=== PATIENT | female | born 1935 | race Caucasian/White ===

== ENCOUNTER 2018-05-18 21:36 | Emergency (ER) | payer OTHER ==
[2018-05-18 21:42] VITALS: BMI 23.3
--- NOTE | 2018-05-18 21:52 | PDOC ---
Attending Attestation - Resident Resident Name: Tapan Maki - ED Attending Attestation I have performed the following: I have examined & evaluated the patient, The case was reviewed & discussed with the resident, I agree w/resident's findings & plan
--- NOTE | 2018-05-18 22:26 | PDOC ---
Attending Attestation - HPI HPI: 05/18/18 23:14 The patient is an 83-year-old female with past medical history significant for COPD, depression, dementia, HTN, HLD presents to the emergency department from [facility] via EMS for head evaluation. Per [facility] RN Sekou, the patient has a nodule on the back of her head. Patients PCP sent the patient to the ER for a CT of the back of the head. 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 At the ED, the patient isnt answering any questions. Allergies: NKA Surgical history: Cholecystectomy and abdominal surgery. PCP: Dr. Marjorie burgos. - Physicial Exam PE: 05/18/18 23:14 GENERAL: In no acute distress. Spoke to the patient in bolivian with a plug sorter. HEAD: No signs of trauma, no bumps or lesion on the scalp. EYES: PERRLA, EOMI, sclera anicteric, conjunctiva clear ENT: moist mucosas, patient wouldnt let us look at her pharynx. NECK: Normal ROM, supple, no lymphadenopathy, JVD, or masses LUNGS: Breath sounds equal, clear to auscultation bilaterally. No wheezes, and no crackles HEART: Regular rate and rhythm, normal S1 and S2, no murmurs, rubs or gallops ABDOMEN: Soft, nontender. No guarding, no rebound. No masses EXTREMITIES: no pitting edema, moving all extremities, no clubbing or cyanosis. No cords, erythema, or tenderness NEUROLOGICAL: patient is somnolent, opens eyes to name. SKIN: Warm, Dry, normal turgor, no rashes or lesions noted. - Medical Decision Making 05/18/18 23:20 Documentation prepared by Lizette Grewal, acting as biomedical photographer for Merari Olsen MD. 05/18/18 23:39 Call placed to [facility]. Case discussed with AGUSTO Sapp at 10:55 pm. <Lizette Grewal - Last Filed: 05/18/18 23:39> - Resident Resident Name: Luh Burnham - ED Attending Attestation I have performed the following: I have examined & evaluated the patient, The case was reviewed & discussed with the resident, I agree w/resident's findings & plan - Medical Decision Making 05/18/18 22:37 Pt with dementia and depression, sent from [place] to check out why she is somnolent. We will do a full assessment and a head CT. 05/18/18 23:51 Pt has a hematoma on the right posterior scalp. She has no subdural visualized and no counter coup lesion. 05/20/18 04:05 Back to the [place] <Merari Olsen - Last Filed: 05/20/18 04:05>
[2018-05-18] MEDS ORDERED: SODIUM CHLORIDE 0.9% 1000 ML INFUS.BAG IV ONE (22:30)
--- NOTE | 2018-05-18 22:57 | PDOC ---
History of Present Illness - General Chief Complaint: Head/Neck problem Stated Complaint: INJURY Time Seen by Provider: 05/18/18 21:51 History Source: Unavil. due to pt. cond. Exam Limitations: Dementia - History of Present Illness Initial Comments: 05/18/18 22:39 This is a 83 year old female with a past medical history of major depressive disorder, paranoid schizophrenia, dementia unspecified, HTN, COPD hypothyroid, constipation, repeat urinary tract infections, PNA who was BIBA sent from [facility] to get CT scan of the head due to a nodule on back of head. Patient very lethargic, barely responding to questioning. History not attainable a this time. Vital sings on admission wnl. Called placed to [facility], nurse stated that at baseline, patient has dementia but can respond minimally in Serbian, follows commands, walks with assistance. Patient does take ativan 0.5 mg in the morning and 1mg in the evening. Nurse stated that 20 minutes before arrival she was given 1mg of ativan. 05/18/18 23:11 Past History - Past Medical History Allergies/Adverse Reactions: Allergies Allergy/AdvReac Type Severity Reaction Status Date / Time No Known Drug Allergies Allergy Verified 05/18/18 21:42 Home Medications: Ambulatory Orders Levothyroxine [Synthroid -] 100 mcg PO DAILY 08/24/14 Sertraline HCl [Zoloft -] 25 mg PO BID 08/24/14 Tramadol HCl 50 mg PO Q6H PRN 02/02/15 Calcium Carbonate/Vitamin D3 [Calcium 500 mg-Vit D3 600 Unit] 1 each PO BID Chol/Aa10/Best/Mztc931/Prt/Lec [Theramine Plus Powder Packet] 27 mg PO DAILY Dextromethorphan HBr/Quinidine [Nuedexta 20-10 mg Capsule] 1 each PO BID Docusate Sodium [Colace] 100 mg PO HS 03/22/18 Fluticasone Prop 0.05% Nasal [Flonase -] 1 - 2 spray NS DAILY 03/22/18 Fosamprenavir Calcium 700 mg PO WEEKLY 03/22/18 Gabapentin [Neurontin] 100 mg PO BID 03/22/18 Lorazepam 0.5 mg PO BID PRN 03/22/18 Mag Hydrox/Al Hydrox/Simeth [Mylanta *Suspension*] 30 ml PO Q6H PRN 03/22/18 Melatonin 5 mg PO HS 03/22/18 Mirtazapine [Remeron -] 15 mg PO HS 03/22/18 Nystatin/Triamcinolone Top Cr [Mycolog II -] 1 applic TP BID 03/22/18 Sennosides [Senna] 8.6 mg PO HS 03/22/18 Sertraline HCl [Zoloft] 100 mg PO DAILY 03/22/18 Simvastatin [Zocor] 10 mg PO HS 03/22/18 Sodium Phosphate,[place]-Dibasic [Fleet Enema] 133 ml RC PRN PRN 03/22/18 COPD: No HTN: Yes Psychiatric Problems: Yes (ANXIETY, DEPRESSION) Seizures: Yes Thyroid Disease: Yes (HYPO.) - Surgical History Abdominal Surgery: Yes Cholecystectomy: Yes - Family Disease History Family Disease History: Heart Disease: Father - Suicide/Smoking/Psychosocial Hx Smoking History: Unknown if ever smoked Have you smoked in the past 12 months: No Hx Alcohol Use: No Drug/Substance Use Hx: No Substance Use Type: None Hx Substance Use Treatment: No Review of Systems - Review of Systems Able to Perform ROS?: No (patient lethargic) Is the patient limited Syriac proficient: No *Physical Exam - Vital Signs Last Vital Signs Temp Pulse Resp BP Pulse Ox 98.4 F 84 18 133/75 98 05/18/18 21:41 05/18/18 21:41 05/18/18 21:41 05/18/18 21:41 05/18/18 21:41 - Physical Exam Comments: 05/18/18 22:59 GENERAL: lethargic; not responding to questions; barely opening eyes HEAD: No signs of trauma, normocephalic, atraumatic EYES: PERRLA, EOMI, sclera anicteric, conjunctiva clear ENT: Auricles normal inspection, hearing grossly normal, nares patent, oropharynx clear without exudates. dry mucosa NECK: no JVD, or masses LUNGS: decreased breath sounds ; scattered rhonchi HEART: Regular rate and rhythm, normal S1 and S2, no murmurs, rubs or gallops, peripheral pulses normal and equal bilaterally. ABDOMEN: Soft, nontender, normoactive bowel sounds. No guarding, no rebound. No masses EXTREMITIES : Normal inspection, no edema. No clubbing or cyanosis. NEUROLOGICAL: lethargic; not responding to questioning; dementia at baseline SKIN: Warm, Dry, normal turgor, no rashes or lesions noted ED Treatment Course - LABORATORY CBC & Chemistry Diagram: 05/19/18 01:00 05/19/18 01:00 - RADIOLOGY Radiology Studies Ordered: Category Date Time Status HEAD CT WITHOUT CONTRAST [CT] Stat CT Scan 05/18/18 22:36 Ordered CHEST X-RAY PORTABLE* [RAD] Stat Radiology 05/18/18 22:30 Ordered Medical Decision Making - Medical Decision Making 05/18/18 23:02 This is a 83 year old female with a history of dementia, schizophrenia, anxiety , major depressive disorder, COPD, PNA, repeat urinary tract infections who was sent over by [facility] for a head CT due to a newly recognized nodule on scalp (not identified on my exam). Here in the ER, patient lethargic, barely arousable. #AMS; differential includes, but not limited to sepsis (hx repeated UTI), medication induced encephalopathy, metabolic encephalopathy, stroke, other acute intracranial pathology -cbc, cmp, cxr, ua/uc, bld cx, vbg -ekg -head ct -hold sedative medications to assess mental status 05/18/18 23:45 -Head CT: Impression: No CT evidence of acute intracranial pathology. A small left parietal/occipital scalp hematoma is noted. The intracranial structures demonstrate no definite interval change in comparison to a prior CT exam of 03/22. 05/19/18 01:51 -cbc,, ua were negative for acute process, vitals are stable. BUN slightly elevated; will give 500NS bolus -lethargy most likely due to ativan given. More arousable . Disposition: will dc back to care home *DC/Admit/Observation/Transfer Diagnosis at time of Disposition: Lethargy - Discharge Dispostion Disposition: [facility] - Referrals Referrals: Silverio Hsu MD [Primary Care Provider] - - Patient Instructions - Post Discharge Activity
[2018-05-19 01:17] LABS: VENOUS PC02 49.7 mmHg (38-52); VENOUS PH 7.36 (7.32-7.42); VENOUS PO2 35.9 mmHg (28-48)
[2018-05-19 01:37] LABS: BASO % 0.4 % (0-2.0); EOS % 1.9 % (0-4.5); HEMATOCRIT 34.9 % (32.4-45.2); HEMOGLOBIN 11.6 GM/dL (10.7-15.3); LYMPH % 19.6 % (8-40); MCH 31.3 pg (25.7-33.7); MCHC 33.2 g/dl (32.0-36.0); MEAN CELL VOLUME 94.3 fl (80-96); MEAN PLT VOLUME 7.2 fl (7.5-11.1); MONO % 6.5 % (3.8-10.2); NEUT % 71.6 % (42.8-82.8); PLATELET COUNT 314 K/MM3 (134-434); RBC 3.71 M/mm3 (3.60-5.2); RDW 14.2 % (11.6-15.6)
[2018-05-19 01:39] LABS: URINE APPEARANCE CLEAR; URINE BILIRUBIN NEGATIVE (<2.0 mg/dL); URINE COLOR YELLOW; URINE GLUCOSE (UA) NEGATIVE (NEGATIVE); URINE KETONE NEGATIVE (NEGATIVE); URINE LEUK ESTERASE NEGATIVE (NEGATIVE); URINE NITRITE NEGATIVE (NEGATIVE); URINE PROTEIN NEGATIVE (NEGATIVE); URINE UROBILINOGEN NEGATIVE mg/dL (0.2-1.0)
[2018-05-19 01:57] LABS: INR 1.14 (0.83-1.09); PROTHROMBIN TIME (PATIENT) 13.5 SEC (9.7-13.0)
[2018-05-19 02:00] LABS: ACTIVATED PTT 29.6 SECONDS (25.2-36.5)
[2018-05-19 02:01] LABS: ALK PHOS 105 U/L (45-117); ANION GAP 6 MMOL/L (8-16); BILIRUBIN,TOTAL 0.2 mg/dL (0.2-1); BLOOD UREA NITROGEN 28 mg/dL (7-18); CALCIUM 9.2 mg/dL (8.5-10.1); CHLORIDE 109 mmol/L (98-107); CO2 29 mmol/L (21-32); CREATININE 0.8 mg/dL (0.55-1.3); GLUCOSE,RANDOM 124 mg/dL (74-106); POTASSIUM 4.2 mmol/L (3.5-5.1); SGOT/AST 22 U/L (15-37); SGPT/ALT 25 U/L (13-61); SODIUM 144 mmol/L (136-145); TOT PROT 6.8 g/dl (6.4-8.2)
[2018-05-19 02:08] LABS: MAGNESIUM 2.3 mg/dL (1.8-2.4); PHOSPHOROUS 3.3 mg/dL (2.5-4.9)
[2018-05-19] MEDS ORDERED: SODIUM CHLORIDE 500 ML IV STA (02:08)
[2018-05-19 03:42] VITALS: BP 140/80; PULSE 92; TEMP 98
== END 2018-05-19 03:26 ==
LOC: JER 21:36
PROC: 3E0337Z Introduction of Electrolytic and Water Balance Substance into Peripheral Vein, Percutaneous Approach (ICD-10-PCS; principal; 2018-05-18)
DX: R53.83 Other fatigue (principal); F33.9 Major depressive disorder, recurrent, unspecified; F20.0 Paranoid schizophrenia; F03.90 Unspecified dementia, unspecified severity, without behavioral disturbance, psychotic disturbance, mood disturbance, and anxiety; I10 Essential (primary) hypertension; J44.9 Chronic obstructive pulmonary disease, unspecified; E03.9 Hypothyroidism, unspecified; Z87.440 Personal history of urinary (tract) infections; S00.03XA Contusion of scalp, initial encounter; X58.XXXA Exposure to other specified factors, initial encounter; Y93.89 Activity, other specified; Y92.128 Other place in nursing home as the place of occurrence of the external cause; Y99.8 Other external cause status
CPT/HCPCS: 36415; 70450-TC; 71045-TC-FY; 80053; 81003; 82803; 83605; 83735; 84100; 84443; 85025; 85610; 85730; 87040; 87086; 96360; 99285-25; J7030

== ENCOUNTER 2018-07-10 20:01 | Inpatient (IN) | payer OTHER ==
[2018-07-10] MEDS ORDERED: SODIUM CHLORIDE 1,000 ML IV SCH (20:15)
--- NOTE | 2018-07-10 20:17 | PDOC ---
Attending Attestation - Medical Decision Making EXAM#: TYPE/EXAM: RESULT: [id number] CT/HEAD CT (STROKE) Rule out stroke CT scan of the brain without intravenous contrast Compared to prior CT scan of the head dated 05/18/2018. There is moderate volume loss and ventricular dilatation. Mild periventricular chronic microvascular ischemic disease changes are present. No mass lesion, gross acute infarct or intracranial hemorrhage are identified. There is no shift of the midline structures. Mild to moderate deviation of the nasal septum to the right. Minimal mucosal thickening in the right ethmoid air cells, posteriorly. Calcification of the cavernous carotid arteries are present. The mastoid air cells are well aerated and the calvarium is intact Impression: No significant interval change or gross acute intracranial pathology is identified. Correlate clinically to determine further evaluation and follow-up Reported By: Kandy Aj MD 07/10/182026 <Emma Cavazos - Last Filed: 07/10/18 20:45> - Resident Resident Name: Candido Mccormack - ED Attending Attestation I have performed the following: I have examined & evaluated the patient, The case was reviewed & discussed with the resident, I agree w/resident's findings & plan, Exceptions are as noted - HPI HPI: 07/10/18 21:47 This is a 83 year old female with a past medical history of major depressive disorder, paranoid schizophrenia, dementia unspecified, HTN, COPD hypothyroid, constipation, recurrent urinary tract infections, PNA, from [facility] who presents to the emergency department with altered mental status at [facility] 1 hour prior to arrival. Per EMS, staff at [place] noted a possible change to her speech? Code ferguson activated. On clarification, [place] staff states pt was a bit more slow to respond after dinner, not answering questions as sharply as she usually does. NIHSS on initial exam 1 for not knowing month, although pt has dementia and per [place] at baseline does not know the month. History is limited due to pt's clinical status. Denies any symptoms at the time. Allergies: NKDA PCP - Dr. Hsu/Dr. Ortiz - Physicial Exam PE: 07/10/18 21:52 agree w resident exam - Medical Decision Making 07/10/18 21:55 83yo F with MMP presents to the ED with altered mental status. Per [place] staff, pt lethargic. Initially code ferguson activated due to EMS report of speech changes, but on clarification with [facility] staff, speech was the same, but pt more lethargic, not as sharp as usual. Possible infection vs metabolic vs neurologic vs ischemic etiology. Plan for labs, UA, XR, CTH, anticipate admission. <Anel Holland - Last Filed: 07/10/18 22:04> Heart Score/ECG Review #1 07/10/18 22:02 Twelve-lead EKG was performed and reviewed by me. Sinus tachycardia, rate 112. Normal axis. Wavy baseline but no obvious ST elevations. <Anel Holland - Last Filed: 07/10/18 22:04>
--- NOTE | 2018-07-10 20:26 | PDOC ---
History of Present Illness - General Chief Complaint: CVA/TIA Stated Complaint: HEADACHE Time Seen by Provider: 07/10/18 20:06 - History of Present Illness Initial Comments: 07/10/18 20:54 The patient is an 83 year old female with a history of HTN, HLD, Dementia, Recurrent UTIs, Seizures, Thyroid disfunction who presents for evaluation of altered mental status. Per the patient's half-way, the patient was noted to be more lethargic with her head looking to the left and more altered at around 7:25 pm prompting her presentation to the ED for further evaluation. They noted that the patient has been gradually declining over the past few weeks although is normally interactive and follows commands. The patient herself was complaining of a headache, however further ROS is limited due to her dementia. tPA Exclusion Checklist 0-3hr - Time Elapsed Date last known well: 07/10/18 Time last known well: 17:00 Elaspsed time: Day(s) and 13 Hour(s) and 33 Minutes - Thrombolytic Therapy Candidate Is the patient eligible for Thrombolytic Therapy?: No - Relative Exclusion Criteria 0-3h Rapid improvement: Yes Stroke severity too mild: Yes - Ineligibility reason(s) Reasons No tPA given: See reason(s) noted above NIH Stroke Scale - Last Known Well Date/Time & Onset Date Last Known Well: 07/10/18 Time Last Known Well: 17:00 - Initial Evaluation Level of consciousness: Alert Ask patient the month and their age: Answers one correctly Ask patient to open & close eyes; make fist and let go: Obeys both correctly Best gaze (horizontal eye movement): Normal Visual field testing: No visual field loss Facial paresis (Show teeth/raise eyebrows/close eyes tight): Normal symmetrical movement Motor Function: Left Arm: Normal Motor Function: Right Arm: Normal (extends arm 90 (or 45) degrees for 10 seconds without drift Motor Function: Left Leg: Normal (extends leg 30 degrees for 5 seconds without drift) Motor Function: Right Leg: Normal (extends leg 30 degrees for 5 seconds without drift) Limb Ataxia: No ataxia Sensory(Use pinprick test arms,legs,trunk,face/side to side): Normal Best language (Describe picture, name items, read sentences): No Aphasia Dysarthria (read several words): Normal articulation Extinction and Inattention: No abnormality - Total Score NIH Stroke Scale Score: 1 Past History - Past Medical History Allergies/Adverse Reactions: Allergies Allergy/AdvReac Type Severity Reaction Status Date / Time No Known Drug Allergies Allergy Verified 07/10/18 20:27 Home Medications: Ambulatory Orders Levothyroxine [Synthroid -] 100 mcg PO DAILY 08/24/14 Sertraline HCl [Zoloft -] 25 mg PO BID 08/24/14 Tramadol HCl 50 mg PO Q6H PRN 02/02/15 Calcium Carbonate/Vitamin D3 [Calcium 500 mg-Vit D3 600 Unit] 1 each PO BID Chol/Aa10/Best/Coht506/Prt/Lec [Theramine Plus Powder Packet] 27 mg PO DAILY Dextromethorphan HBr/Quinidine [Nuedexta 20-10 mg Capsule] 1 each PO BID Docusate Sodium [Colace] 100 mg PO HS 03/22/18 Fluticasone Prop 0.05% Nasal [Flonase -] 1 - 2 spray NS DAILY 03/22/18 Fosamprenavir Calcium 700 mg PO WEEKLY 03/22/18 Gabapentin [Neurontin] 100 mg PO BID 03/22/18 Lorazepam 0.5 mg PO BID PRN 03/22/18 Mag Hydrox/Al Hydrox/Simeth [Mylanta *Suspension*] 30 ml PO Q6H PRN 03/22/18 Melatonin 5 mg PO HS 03/22/18 Mirtazapine [Remeron -] 15 mg PO HS 03/22/18 Nystatin/Triamcinolone Top Cr [Mycolog II -] 1 applic TP BID 03/22/18 Sennosides [Senna] 8.6 mg PO HS 03/22/18 Sertraline HCl [Zoloft] 100 mg PO DAILY 03/22/18 Simvastatin [Zocor] 10 mg PO HS 03/22/18 Sodium Phosphate,[place]-Dibasic [Fleet Enema] 133 ml RC PRN PRN 03/22/18 COPD: No HTN: Yes Psychiatric Problems: Yes (ANXIETY, DEPRESSION) Seizures: Yes Thyroid Disease: Yes (HYPO.) - Surgical History Abdominal Surgery: Yes Cholecystectomy: Yes - Family Disease History Family Disease History: Heart Disease: Father - Suicide/Smoking/Psychosocial Hx Smoking History: Unknown if ever smoked Have you smoked in the past 12 months: No Hx Alcohol Use: No Drug/Substance Use Hx: No Substance Use Type: None Hx Substance Use Treatment: No Review of Systems - Review of Systems Able to Perform ROS?: No (Dementia) *Physical Exam - Physical Exam Comments: 07/10/18 20:56 General Appearance: Nourished. No Apparent Distress HEENT: EOMI, SHANDA. No Pharyngeal Erythema, Tonsillar Exudate, Tonsillar Erythema Neck: No Cervical Lymphadenopathy Respiratory/Chest: Lungs Clear, Normal Breath Sounds. No Crackles, Rales, Rhonchi, Wheezing Cardiovascular: Regular Rhythm, Regular Rate. No Murmur, Gallops, Rubs Gastrointestinal/Abdominal: Normal Bowel Sounds, Soft. No Guarding, Rebound, Tenderness Musculoskeletal: No CVA Tenderness Extremity: Normal Capillary Refill Integumentary: Normal Color, Dry, Warm Neurologic: education technician II-XII NML intact, Oriented x1, Alert, Normal Mood/Affect, Normal Response, Motor Strength 5/5. No Gaze deviation noted Heart Score/ECG Review #1 ECG reviewed & interpreted by me at: 20:59 General ECG Interpretation: Sinus Rhythm, Normal Intervals, No acute ischemic changes 07/10/18 20:59 Sinus Tachycardia HR 112 ED Treatment Course - LABORATORY CBC & Chemistry Diagram: 07/10/18 21:05 07/10/18 22:20 - RADIOLOGY Radiology Studies Ordered: Category Date Time Status HEAD CT (STROKE) [CT] Stat CT Scan 07/10/18 20:05 Taken CHEST X-RAY PORTABLE* [RAD] Stat Radiology 07/10/18 20:05 Taken Medical Decision Making - Medical Decision Making 07/10/18 21:00 The patient is an 83 year old female with a history of HTN, HLD, Dementia, Recurrent UTIs, Seizures, Thyroid disfunction who presents for evaluation of altered mental status. Differential includes but is not limited to: CVA, TIA, Intracranial processes, UTI, Infectious, Metabolic Derangement. Given the patient's history and physical exam, we initially called the patient as a code smith. Head CT is unremarkable as read by our radiologist. We will obtain a cbc , cmp, troponin, ekg, lipid profile, ua, urine culture, chest plain film to evaluate further. We will continue to monitor and reassess while here in the ED. 07/11/18 00:33 CBC, cmp, troponin are unremarkable. UA demonstrates positive nitrites, positive leuk esterase, elevated wbc consistent with a UTI. We will treat the patient with ceftriaxone. It is likely the patient's symptoms are due to a UTI. We discussed the case with the admitting team who accepted the patient for admission. *DC/Admit/Observation/Transfer Diagnosis at time of Disposition: UTI (urinary tract infection) Qualifiers: Urinary tract infection type: site unspecified Hematuria presence: without hematuria Qualified Code(s): N39.0 - Urinary tract infection, site not specified Altered mental status Qualifiers: Altered mental status type: unspecified Qualified Code(s): R41.82 - Altered mental status, unspecified - Discharge Dispostion Condition at time of disposition: Stable Decision to Admit order: Yes - Referrals - Patient Instructions - Post Discharge Activity
[2018-07-10 21:22] LABS: BASO % 0.6 % (0-2.0); EOS % 1.5 % (0-4.5); HEMATOCRIT 39.6 % (32.4-45.2); HEMOGLOBIN 13.8 GM/dL (10.7-15.3); LYMPH % 13.1 % (8-40); MCH 32.4 pg (25.7-33.7); MCHC 34.8 g/dl (32.0-36.0); MEAN CELL VOLUME 93.1 fl (80-96); MEAN PLT VOLUME 7.4 fl (7.5-11.1); MONO % 8.9 % (3.8-10.2); NEUT % 75.9 % (42.8-82.8); PLATELET COUNT 217 K/MM3 (134-434); RBC 4.25 M/mm3 (3.60-5.2); RDW 14.9 % (11.6-15.6); WHITE BLOOD COUNT 6.7 K/mm3 (4.0-10.0)
[2018-07-10 21:50] LABS: URINE APPEARANCE SLCLOUDY; URINE BILIRUBIN NEGATIVE (<2.0 mg/dL); URINE COLOR YELLOW; URINE GLUCOSE (UA) 1+ (NEGATIVE); URINE KETONE NEGATIVE (NEGATIVE); URINE LEUK ESTERASE 3+ (NEGATIVE); URINE NITRITE POSITIVE (NEGATIVE); URINE PROTEIN NEGATIVE (NEGATIVE); URINE UROBILINOGEN NEGATIVE mg/dL (0.2-1.0)
[2018-07-10 22:13] LABS: EPI CELLS RARE /HPF (FEW); URINE BACTERIA MANY /hpf (NONE SEEN); URINE HYALINE CAST 4 /lpf; URINE MUCUS RARE
[2018-07-10] MEDS ORDERED: CEFTRIAXONE 1 GM in DEXTROSE 5%-WATER - 100 ML IVPB ONE (22:26)
[2018-07-10] MEDS ORDERED: CEFTRIAXONE 1 GM/50 ML BAG ONE (22:38)
[2018-07-10 22:54] LABS: INR 1.01 (0.83-1.09); PROTHROMBIN TIME (PATIENT) 11.9 SEC (9.7-13.0)
[2018-07-10 22:57] LABS: ACTIVATED PTT 29.2 SECONDS (25.2-36.5)
[2018-07-10 23:20] LABS: ALBUMIN 3.1 g/dl (3.4-5.0); ALK PHOS 127 U/L (45-117); ANION GAP 6 MMOL/L (8-16); BILIRUBIN,TOTAL 0.2 mg/dL (0.2-1); BLOOD UREA NITROGEN 22 mg/dL (7-18); CHLORIDE 109 mmol/L (98-107); CHOLESTEROL 166 mg/dL (50-200); CO2 26 mmol/L (21-32); CREATININE 0.8 mg/dL (0.55-1.3); GLUCOSE,RANDOM 149 mg/dL (74-106); HDL CHOLESTEROL 45 mg/dL (40-60); POTASSIUM 3.8 mmol/L (3.5-5.1); SGOT/AST 21 U/L (15-37); SGPT/ALT 20 U/L (13-61); SODIUM 141 mmol/L (136-145); TOT PROT 6.3 g/dl (6.4-8.2); TRIGLYCERIDES 189 mg/dL (0-150)
[2018-07-11] MEDS ORDERED: SODIUM PHOSPHATE/NA BIPHOS 133 ML ENEMA RC PRN (00:15)
[2018-07-11] MEDS ORDERED: FOSAMPRENAVIR CALCIUM 700 MG TABLET PO SCH (00:15)
--- NOTE | 2018-07-11 00:20 | HP ---
CHIEF COMPLAINT: altered mental status PCP: Shadi HISTORY OF PRESENT ILLNESS: 83 year old female with a history of HTN, HLD, Dementia, Recurrent UTIs, Seizures, Thyroid disfunction [facility] status. [facility] per [facility], patient appeared to be more lethargic, with gradual decline, not following commands recently. When I saw patient she was able to state her name and followed minimal commands. Was otherwise not very cooperative and provided no useful history. ER course was notable for: (1) head CT (2) IV fluid (3) Recent Travel: unknown PAST MEDICAL HISTORY: HTN, HLD, Dementia, Recurrent UTIs, Seizures, Thyroid disfunction PAST SURGICAL HISTORY: unknown Social History: unknown Smoking: Alcohol: Drugs: Family History: unknown Allergies No Known Drug Allergies Allergy (Verified 07/10/18 20:27) HOME MEDICATIONS: Home Medications Medication Instructions Recorded Levothyroxine [Synthroid -] 100 mcg PO DAILY 08/24/14 Sertraline HCl [Zoloft -] 25 mg PO BID 08/24/14 Tramadol HCl 50 mg PO Q6H PRN 02/02/15 Calcium Carbonate/Vitamin D3 1 each PO BID 03/22/18 [Calcium 500 mg-Vit D3 600 Unit] Chol/Aa10/Best/Radb373/Prt/Lec 27 mg PO DAILY 03/22/18 [Theramine Plus Powder Packet] Dextromethorphan HBr/Quinidine 1 each PO BID 03/22/18 [Nuedexta 20-10 mg Capsule] Docusate Sodium [Colace] 100 mg PO HS 03/22/18 Fluticasone Prop 0.05% Nasal 1 - 2 spray NS DAILY 03/22/18 [Flonase -] Fosamprenavir Calcium 700 mg PO WEEKLY 03/22/18 Gabapentin [Neurontin] 100 mg PO BID 03/22/18 Lorazepam 0.5 mg PO BID PRN 03/22/18 Mag Hydrox/Al Hydrox/Simeth 30 ml PO Q6H PRN 03/22/18 [Mylanta *Suspension*] Melatonin 5 mg PO HS 03/22/18 Mirtazapine [Remeron -] 15 mg PO HS 03/22/18 Nystatin/Triamcinolone Top Cr 1 applic TP BID 03/22/18 [Mycolog II -] Sennosides [Senna] 8.6 mg PO HS 03/22/18 Sertraline HCl [Zoloft] 100 mg PO DAILY 03/22/18 Simvastatin [Zocor] 10 mg PO HS 03/22/18 Sodium Phosphate,Tripp-Dibasic 133 ml RC PRN PRN 03/22/18 [Fleet Enema] REVIEW OF SYSTEMS - unable to obtain PHYSICAL EXAMINATION Vital Signs - 24 hr 07/10/18 20:02 Temperature 97.7 F Pulse Rate 111 H Respiratory 19 Rate Blood Pressure 121/66 O2 Sat by Pulse 96 Oximetry (%) GENERAL: Awake, alert, not cooperative HEAD: Normal with no signs of trauma. EYES: Pupils equal, round and reactive to light, extraocular movements intact, sclera anicteric, conjunctiva clear. No lid lag. EARS, NOSE, THROAT: Ears normal, nares patent, oropharynx clear without exudates. dry mucous membranes. NECK: Normal range of motion, supple without lymphadenopathy, JVD, or masses. LUNGS: Breath sounds equal, clear to auscultation bilaterally. No wheezes, and no crackles. No accessory muscle use. HEART: Regular rate and rhythm, normal S1 and S2 without murmur, rub or gallop. ABDOMEN: Soft, nontender, not distended, normoactive bowel sounds, no guarding, no rebound, no masses. No hepatomegaly or splenomegaly. MUSCULOSKELETAL: Normal range of motion at all joints. No bony deformities or tenderness. No CVA tenderness. UPPER EXTREMITIES: 2+ pulses, warm, well-perfused. No cyanosis. No clubbing. No peripheral edema. LOWER EXTREMITIES: 2+ pulses, warm, well-perfused. No calf tenderness. No peripheral edema. NEUROLOGICAL: no focal neuro deficits noted PSYCHIATRIC: Cooperative. Good eye contact. Appropriate mood and affect. SKIN: Warm, dry, normal turgor, no rashes or lesions noted, normal capillary refill. Laboratory Results - last 24 hr 07/10/18 07/10/18 07/10/18 21:05 21:05 21:05 WBC 6.7 RBC 4.25 Hgb 13.8 Hct 39.6 MCV 93.1 MCH 32.4 MCHC 34.8 RDW 14.9 Plt Count 217 D MPV 7.4 L Absolute Neuts (auto) 5.1 Neutrophils % 75.9 Lymphocytes % 13.1 D Monocytes % 8.9 Eosinophils % 1.5 Basophils % 0.6 Nucleated RBC % 0 PT with INR Cancelled INR Cancelled PTT (Actin FS) Sodium Cancelled Potassium Cancelled Chloride Cancelled Carbon Dioxide Cancelled Anion Gap Cancelled BUN Cancelled Creatinine Cancelled Creat Clearance w eGFR Cancelled Random Glucose Cancelled Calcium Cancelled Total Bilirubin Cancelled AST Cancelled ALT Cancelled Alkaline Phosphatase Cancelled Creatine Kinase Cancelled Troponin I Cancelled Total Protein Cancelled Albumin Cancelled Triglycerides Cancelled Cholesterol Cancelled Total LDL Cholesterol Cancelled HDL Cholesterol Cancelled Urine Color Urine Appearance Urine pH Ur Specific [place] Urine Protein Urine Glucose (UA) Urine Ketones Urine Blood Urine Nitrite Urine Bilirubin Urine Urobilinogen Ur Leukocyte Esterase Urine WBC (Auto) Urine RBC (Auto) Ur Epithelial Cells Urine Bacteria Hyaline Casts Urine Mucus Blood Type Antibody Screen 07/10/18 07/10/18 07/10/18 21:05 21:30 22:20 WBC RBC Hgb Hct MCV MCH MCHC RDW Plt Count MPV Absolute Neuts (auto) Neutrophils % Lymphocytes % Monocytes % Eosinophils % Basophils % Nucleated RBC % PT with INR 11.90 INR 1.01 PTT (Actin FS) 29.2 Sodium Potassium Chloride Carbon Dioxide Anion Gap BUN Creatinine Creat Clearance w eGFR Random Glucose Calcium Total Bilirubin AST ALT Alkaline Phosphatase Creatine Kinase Troponin I Total Protein Albumin Triglycerides Cholesterol Total LDL Cholesterol HDL Cholesterol Urine Color Yellow Urine Appearance Slcloudy Urine pH 5.0 Ur Specific [place] 1.024 Urine Protein Negative Urine Glucose (UA) 1+ H Urine Ketones Negative Urine Blood Negative Urine Nitrite Positive Urine Bilirubin Negative Urine Urobilinogen Negative Ur Leukocyte Esterase 3+ H Urine WBC (Auto) 52 Urine RBC (Auto) 4 Ur Epithelial Cells Rare Urine Bacteria Many Hyaline Casts 4 Urine Mucus Rare Blood Type Cancelled Antibody Screen Cancelled 07/10/18 22:20 WBC RBC Hgb Hct MCV MCH MCHC RDW Plt Count MPV Absolute Neuts (auto) Neutrophils % Lymphocytes % Monocytes % Eosinophils % Basophils % Nucleated RBC % PT with INR INR PTT (Actin FS) Sodium 141 Potassium 3.8 Chloride 109 H Carbon Dioxide 26 Anion Gap 6 L BUN 22 H Creatinine 0.8 Creat Clearance w eGFR > 60 Random Glucose 149 H Calcium 8.0 L Total Bilirubin 0.2 AST 21 ALT 20 Alkaline Phosphatase 127 H Creatine Kinase 46 Troponin I < 0.02 Total Protein 6.3 L Albumin 3.1 L Triglycerides 189 H Cholesterol 166 Total LDL Cholesterol 95 HDL Cholesterol 45 Urine Color Urine Appearance Urine pH Ur Specific [place] Urine Protein Urine Glucose (UA) Urine Ketones Urine Blood Urine Nitrite Urine Bilirubin Urine Urobilinogen Ur Leukocyte Esterase Urine WBC (Auto) Urine RBC (Auto) Ur Epithelial Cells Urine Bacteria Hyaline Casts Urine Mucus Blood Type Antibody Screen Head CT reviewed CXR reviewed ASSESSMENT/PLAN: #83yo woman with altered mental status. She has underlying dementia which may have progressed. This can also be delerium superimprosed on her dementia. Delerium may be exacerbated by her polypharmacy including multiple sedative medications. Will hold sedatives at this time. Possible UTI however poor urine specimen given presence of epithelial cells in UA. NO acute intracranial insults seen on head CT. R/o uncontrolled hypothyroidism. R/o uncontrolled seizure d/o. -observation -ceftriaxone -send new UA, urine culture -IV fluid hydration -avoid sedatives -fall precautions -bed rest -TSH -Vit B12 -RPR -consider neuro evaluation #Hypothyroidism -c/w levothyroxine 100 mcg po daily #Seizure d/o -c/w home dose Keppra #DVT ppx - heparin sc Visit type - Emergency Visit Emergency Visit: Yes ED Registration Date: 07/11/18 Care time: The patient presented to the Emergency Department on the above date and was hospitalized for further evaluation of their emergent condition. - New Patient This patient is new to me today: Yes Date on this admission: 07/11/18 - Critical Care Critical Care patient: No
[2018-07-11] MEDS: SODIUM CHLORIDE 1,000 ML IV SCH ×2 (01:02→06:19)
[2018-07-11 05:50] VITALS: BMI 28.7
[2018-07-11] MEDS: LEVOTHYROXINE NA 100 MCG TABLET (FP) PO SCH (06:08)
[2018-07-11 07:31] LABS: BASO % 0.7 % (0-2.0); HEMATOCRIT 36.4 % (32.4-45.2); HEMOGLOBIN 12.8 GM/dL (10.7-15.3); MCH 32.6 pg (25.7-33.7); MCHC 35.3 g/dl (32.0-36.0); MEAN CELL VOLUME 92.3 fl (80-96); MEAN PLT VOLUME 7.3 fl (7.5-11.1); MONO % 10.4 % (3.8-10.2); NEUT % 73.9 % (42.8-82.8); PLATELET COUNT 204 K/MM3 (134-434); RBC 3.95 M/mm3 (3.60-5.2); RDW 14.6 % (11.6-15.6); WHITE BLOOD COUNT 6.3 K/mm3 (4.0-10.0)
[2018-07-11 08:41] LABS: BLOOD UREA NITROGEN 15 mg/dL (7-18); GLUCOSE,RANDOM 119 mg/dL (74-106)
[2018-07-11 08:42] LABS: ANION GAP 7 MMOL/L (8-16); CHLORIDE 107 mmol/L (98-107); CO2 26 mmol/L (21-32); CREATININE 0.7 mg/dL (0.55-1.3); MAGNESIUM 2.3 mg/dL (1.8-2.4); PHOSPHOROUS 2.2 mg/dL (2.5-4.9); POTASSIUM 3.9 mmol/L (3.5-5.1); SODIUM 140 mmol/L (136-145)
--- NOTE | 2018-07-11 09:41 | EKG ---
Test Reason : Blood Pressure : / mmHG Vent. Rate : 112 BPM Atrial Rate : 112 BPM P-R Int : 140 ms QRS Dur : 072 ms QT Int : 344 ms P-R-T Axes : 025 -04 000 degrees QTc Int : 469 ms POOR DATA QUALITY, INTERPRETATION MAY BE ADVERSELY AFFECTED SINUS TACHYCARDIA VOLTAGE CRITERIA FOR LEFT VENTRICULAR HYPERTROPHY ABNORMAL ECG WHEN COMPARED WITH ECG OF 02-FEB-2015 11:54, INVERTED T WAVES HAVE REPLACED NONSPECIFIC T WAVE ABNORMALITY IN INFERIOR LEADS Confirmed by JENIFER KENT, NATALIA ([id number]) on 07/11/2018 9:41:16 AM Referred By: Confirmed By:NATALIA BURGESS MD
[2018-07-11] MEDS: CALCIUM 500MG/VIT-D 200 UNITS COMBO TABLET (FP) PO SCH ×2 (11:15→23:06)
[2018-07-11] MEDS: HEPARIN NA (PORCINE) 5,000 UNITS/ML 1ML VIAL SQ SCH ×2 (11:15→23:06)
--- NOTE | 2018-07-11 11:20 | PN ---
Progress Note (short form) - Note Progress Note: pt is drowsy but arousable anxious Vital Signs - 24 hr 07/10/18 07/11/18 07/11/18 20:02 02:23 05:18 Temperature 97.7 F 99.2 F Pulse Rate 111 H Pulse Rate [ 88 Left Apical] Respiratory 19 18 Rate Blood Pressure 121/66 Blood Pressure 122/66 [Left Arm] O2 Sat by Pulse 96 96 96 Oximetry (%) 07/11/18 07/11/18 05:49 11:10 Temperature 98.2 F 98.3 F Pulse Rate 91 H 120 H Pulse Rate [ Left Apical] Respiratory 22 H 24 H Rate Blood Pressure 152/91 156/59 L Blood Pressure [Left Arm] O2 Sat by Pulse Oximetry (%) Current Medications Generic Name Dose Route Start Last Admin Trade Name Freq PRN Reason Stop Dose Admin Atorvastatin Calcium 10 mg 07/11/18 22:00 Lipitor - PO HS PAPITO Calcium Carbonate/Cholecalciferol 1 tab 07/11/18 10:00 07/11/18 11:15 Os-Horacio 500+D - PO 1 tab BID PAPITO Administration Docusate Sodium 100 mg 07/11/18 22:00 Colace - PO HS PAPITO Heparin Sodium (Porcine) 5,000 unit 07/11/18 10:00 07/11/18 11:15 Heparin - SQ 5,000 unit BID PAPITO Administration Sodium Chloride 1,000 mls @ 75 mls/hr 07/11/18 00:14 07/11/18 06:19 Normal Saline - IV 75 mls/hr ASDIR PAPITO Administration Levothyroxine Sodium 100 mcg 07/11/18 07:00 07/11/18 06:08 Synthroid - PO 100 mcg DAILY@0700 PAPITO Administration Sodium Phosphate 133 ml 07/11/18 00:15 Fleet Adult Rectal Enema - RC PRN PRN CONSTIPATION Laboratory Results - last 24 hr 07/10/18 07/10/18 07/10/18 21:05 21:05 21:05 WBC 6.7 RBC 4.25 Hgb 13.8 Hct 39.6 MCV 93.1 MCH 32.4 MCHC 34.8 RDW 14.9 Plt Count 217 D MPV 7.4 L Absolute Neuts (auto) 5.1 Neutrophils % 75.9 Lymphocytes % 13.1 D Monocytes % 8.9 Eosinophils % 1.5 Basophils % 0.6 Nucleated RBC % 0 PT with INR Cancelled INR Cancelled PTT (Actin FS) Sodium Cancelled Potassium Cancelled Chloride Cancelled Carbon Dioxide Cancelled Anion Gap Cancelled BUN Cancelled Creatinine Cancelled Creat Clearance w eGFR Cancelled Random Glucose Cancelled Calcium Cancelled Phosphorus Magnesium Total Bilirubin Cancelled AST Cancelled ALT Cancelled Alkaline Phosphatase Cancelled Creatine Kinase Cancelled Troponin I Cancelled Total Protein Cancelled Albumin Cancelled Triglycerides Cancelled Cholesterol Cancelled Total LDL Cholesterol Cancelled HDL Cholesterol Cancelled Vitamin B12 TSH Urine Color Urine Appearance Urine pH Ur Specific [place] Urine Protein Urine Glucose (UA) Urine Ketones Urine Blood Urine Nitrite Urine Bilirubin Urine Urobilinogen Ur Leukocyte Esterase Urine WBC (Auto) Urine RBC (Auto) Ur Epithelial Cells Urine Bacteria Hyaline Casts Urine Mucus RPR Titer Blood Type Antibody Screen 07/10/18 07/10/18 07/10/18 21:05 21:30 22:20 WBC RBC Hgb Hct MCV MCH MCHC RDW Plt Count MPV Absolute Neuts (auto) Neutrophils % Lymphocytes % Monocytes % Eosinophils % Basophils % Nucleated RBC % PT with INR 11.90 INR 1.01 PTT (Actin FS) 29.2 Sodium Potassium Chloride Carbon Dioxide Anion Gap BUN Creatinine Creat Clearance w eGFR Random Glucose Calcium Phosphorus Magnesium Total Bilirubin AST ALT Alkaline Phosphatase Creatine Kinase Troponin I Total Protein Albumin Triglycerides Cholesterol Total LDL Cholesterol HDL Cholesterol Vitamin B12 TSH Urine Color Yellow Urine Appearance Slcloudy Urine pH 5.0 Ur Specific [place] 1.024 Urine Protein Negative Urine Glucose (UA) 1+ H Urine Ketones Negative Urine Blood Negative Urine Nitrite Positive Urine Bilirubin Negative Urine Urobilinogen Negative Ur Leukocyte Esterase 3+ H Urine WBC (Auto) 52 Urine RBC (Auto) 4 Ur Epithelial Cells Rare Urine Bacteria Many Hyaline Casts 4 Urine Mucus Rare RPR Titer Blood Type Cancelled Antibody Screen Cancelled 07/10/18 07/11/18 07/11/18 22:20 06:30 06:30 WBC 6.3 RBC 3.95 Hgb 12.8 Hct 36.4 MCV 92.3 MCH 32.6 MCHC 35.3 RDW 14.6 Plt Count 204 MPV 7.3 L Absolute Neuts (auto) 4.7 Neutrophils % 73.9 Lymphocytes % 13.0 Monocytes % 10.4 H Eosinophils % 2.0 Basophils % 0.7 Nucleated RBC % 0 PT with INR INR PTT (Actin FS) Sodium 141 140 Potassium 3.8 3.9 Chloride 109 H 107 Carbon Dioxide 26 26 Anion Gap 6 L 7 L BUN 22 H 15 Creatinine 0.8 0.7 Creat Clearance w eGFR > 60 > 60 Random Glucose 149 H 119 H Calcium 8.0 L 8.0 L Phosphorus 2.2 L Magnesium 2.3 Total Bilirubin 0.2 AST 21 ALT 20 Alkaline Phosphatase 127 H Creatine Kinase 46 Troponin I < 0.02 Total Protein 6.3 L Albumin 3.1 L Triglycerides 189 H Cholesterol 166 Total LDL Cholesterol 95 HDL Cholesterol 45 Vitamin B12 525 TSH 2.83 Urine Color Urine Appearance Urine pH Ur Specific [place] Urine Protein Urine Glucose (UA) Urine Ketones Urine Blood Urine Nitrite Urine Bilirubin Urine Urobilinogen Ur Leukocyte Esterase Urine WBC (Auto) Urine RBC (Auto) Ur Epithelial Cells Urine Bacteria Hyaline Casts Urine Mucus RPR Titer Blood Type Antibody Screen 07/11/18 06:30 WBC RBC Hgb Hct MCV MCH MCHC RDW Plt Count MPV Absolute Neuts (auto) Neutrophils % Lymphocytes % Monocytes % Eosinophils % Basophils % Nucleated RBC % PT with INR INR PTT (Actin FS) Sodium Potassium Chloride Carbon Dioxide Anion Gap BUN Creatinine Creat Clearance w eGFR Random Glucose Calcium Phosphorus Magnesium Total Bilirubin AST ALT Alkaline Phosphatase Creatine Kinase Troponin I Total Protein Albumin Triglycerides Cholesterol Total LDL Cholesterol HDL Cholesterol Vitamin B12 TSH Urine Color Urine Appearance Urine pH Ur Specific [place] Urine Protein Urine Glucose (UA) Urine Ketones Urine Blood Urine Nitrite Urine Bilirubin Urine Urobilinogen Ur Leukocyte Esterase Urine WBC (Auto) Urine RBC (Auto) Ur Epithelial Cells Urine Bacteria Hyaline Casts Urine Mucus RPR Titer Nonreactive Blood Type Antibody Screen S1 S2 RRR Tachycardia Lungs decreassed Abd- soft,NT No edema PLAN Cultures pending On Ceftriaxone for UTI Spoke with daughter-- HCP Neurology eval dc all psych meds start Lopressor for better BP control encourage food intake change iv fluids Problem List - Problems (1) Acute metabolic encephalopathy Code(s): G93.41 - METABOLIC ENCEPHALOPATHY (2) Altered mental status Code(s): R41.82 - ALTERED MENTAL STATUS, UNSPECIFIED Qualifiers: Altered mental status type: unspecified Qualified Code(s): R41.82 - Altered mental status, unspecified (3) Urinary tract infection Code(s): N39.0 - URINARY TRACT INFECTION, SITE NOT SPECIFIED Qualifiers: Urinary tract infection type: site unspecified Hematuria presence: without hematuria Qualified Code(s): N39.0 - Urinary tract infection, site not specified (4) Anxiety Code(s): F41.9 - ANXIETY DISORDER, UNSPECIFIED
[2018-07-11] MEDS ORDERED: SODIUM CHLORIDE 0.45% 1,000 ML IV SCH (11:30)
[2018-07-11] MEDS: METOPROLOL TARTRATE 25 MG TABLET (FP) PO SCH ×2 (11:53→23:06)
[2018-07-11] MEDS: amLODIPine BESYLATE 5 MG TABLET (FP) PO SCH ×2 (19:10→19:11)
[2018-07-11] MEDS ORDERED: cefTRIAXone SODIUM 1 GM VIAL ONE (22:33)
[2018-07-11] MEDS ORDERED: DEXTROSE 5%-WATER - 50 ML IVPB ONE (22:33)
[2018-07-11] MEDS: CEFTRIAXONE 1 GM in DEXTROSE 5%-WATER - 50 ML IVPB SCH (23:06)
[2018-07-11] MEDS: DOCUSATE SODIUM 100 MG CAPSULE (FP) PO SCH (23:06)
[2018-07-11] MEDS: ATORVASTATIN CA 10 MG TABLET (FP) PO SCH (23:06)
[2018-07-12] MEDS ORDERED: FUROSEMIDE 40 MG/4 ML INJECTABLE VIAL IVPUSH ONE (03:31)
[2018-07-12] MEDS ORDERED: SODIUM CHLORIDE 0.45% 1,000 ML IV SCH (03:34)
--- NOTE | 2018-07-12 03:44 | PN ---
Progress Note (short form) - Note Progress Note: Episodic Note 07/12/2018@3:39am Called by RN patient is hypoxic on room air of 88%. Patient seen and examined at bedside. Chart reviewed. She is in no acute respiratory distress. On physical evaluation she is congested. Lungs with rales and coarse breath sounds present. No use of accessory muscles. Lower extremities are warm to touch with no pitting edema present. BP 150/99. Heart rate 95-104bpm. She was febrile earlier this evening with temperature of 100.1. Labs reviewed and creatinine is normal. Ejection fraction is unknown. Assessment/Plan: Pulmonary Congestion IV fluids were discontinued to prevent acute exacerbation of congestive heart failure. STAT CXR ordered and pending review. IV lasix 40mg once ordered. Continue with oxygen therapy. Fever UA positive. Urine culture is pending for No evidence of leukocytosis . Continue with IV antibiotic therapy. Further recommendations will be based on patient clinical symptoms. Visit type - Emergency Visit Emergency Visit: No - New Patient This patient is new to me today: Yes Date on this admission: 07/12/18 - Critical Care Critical Care patient: No
[2018-07-12] MEDS: LEVOTHYROXINE NA 100 MCG TABLET (FP) PO SCH (06:05)
[2018-07-12] MEDS ORDERED: cefTRIAXone SODIUM 1 GM VIAL ONE (11:16)
[2018-07-12] MEDS ORDERED: DEXTROSE 5%-WATER - 50 ML IVPB ONE (11:16)
[2018-07-12] MEDS: HEPARIN NA (PORCINE) 5,000 UNITS/ML 1ML VIAL SQ SCH ×2 (11:18→21:19)
[2018-07-12] MEDS: METOPROLOL TARTRATE 25 MG TABLET (FP) PO SCH ×2 (11:20→21:20)
[2018-07-12] MEDS: amLODIPine BESYLATE 5 MG TABLET (FP) PO SCH (11:21)
[2018-07-12] MEDS: CALCIUM 500MG/VIT-D 200 UNITS COMBO TABLET (FP) PO SCH ×2 (11:21→21:20)
[2018-07-12] MEDS: CEFTRIAXONE 1 GM in DEXTROSE 5%-WATER - 50 ML IVPB SCH (11:50)
[2018-07-12] MEDS: guaiFENesin 200 MG/10 ML 10 ML UNIT-DOSE CUPS PO PRN (12:27)
--- NOTE | 2018-07-12 12:38 | CONSULT ---
Admitting History and Physical - Primary Care Physician PCP: Kady Ortiz - Admission History of Present Illness: 83 year old female with a history of HTN, HLD, Dementia, Recurrent UTIs, Seizures, Thyroid disfunction [facility] for [facility] status. As per [facility], patient appeared to be more lethargic, with gradual decline, not following commands recently. Hypoxic on room air of 88% with congestion, rales and coarse breath sounds present. IV fluids were discontinued to prevent acute exacerbation of congestive heart failure. CXR- possible early infiltrate. IV lasix oxygen therapy. Fever UA positive. IV antibiotic therapy. Selected Entries 07/11/18 07/11/18 07/11/18 02:23 05:49 11:10 Breakfast Diet Tolerated Lunch Supper Temperature 99.2 F 98.2 F 98.3 F 07/11/18 07/11/18 07/11/18 11:40 12:26 13:32 Breakfast 25% Diet Tolerated Fair Lunch Supper Temperature 98.7 F 97.6 F 07/11/18 07/11/18 07/12/18 14:15 18:30 02:00 Breakfast Diet Tolerated Poor Well Lunch 25% Supper 100% Temperature 98.2 F 98.3 F 100.1 F H 07/12/18 07/12/18 07/12/18 06:00 09:18 10:00 Breakfast 50% Diet Tolerated Fair Lunch Supper Temperature 99.2 F 99.9 F H Laboratory Tests 07/11/18 06:30 WBC 6.3 On regular diet/thin liquids at [facility]. Baseline was verbal,but not recently, mentation declining over last couple of months per PMD. This is my first consult with this pt. History Source: Medical Record Limitations to Obtaining History: Clinical Condition, Dementia - Past Medical History Cardiovascular: Yes: HTN Gastrointestinal: Yes: Diverticulosis, Hemorrhoids, Inflamatory Bowel Disease, Irritable Bowel Disease Renal/: Yes: UTI ...: No Psych: Yes: Anxiety, Depression Musculoskeletal: Yes: Chronic low back pain Endocrine: Yes: Hyperthyroidism - Smoking History Smoking history: Unknown if ever smoked Have you smoked in the past 12 months: No - Alcohol/Substance Use Hx Alcohol Use: No History of Substance Use: reports: None - Social History ADL: Independent History of Recent Travel: No History - Admission Reason For Visit: UTI AMS - Diagnostics X-ray: Report Reviewed CT Scan: Report Reviewed - General Mental Status: Confused, Flat Affect, Lethargic Attention: Severe Impairment Ability to Follow Directions: Poor Head/Neck Control: Needs Assist (head extended) - Hearing Hearing: Normal Speech Evaluation - Communication Primary Language: AMHARIC Communication: Yes: Non-Communicable Oral Expression Ability: Yes: Non-Verbal, Non-Vocal - Speech Production Able to Make Needs Known: Yes: Severely Impaired - Speech Characteristics Voice Phonatory-based Quality: Yes: Vocal Wetness - Swallow Evaluation/Bedside Assessment Current Nutritional Intake: Dysphagia Pureed, Thin Liquids Oral Secretions: Yes: WFL (Audible upper airway secretions. Desaturated. Suctioned food from pharynx.) Jaw Position: Open at Rest Labial Seal: Impaired Bilaterally Oral Prep Time: Increased A-P Transit: Impaired Pocketing: Present Bilaterally Timing of Swallow: Delayed Coughing/Throat Clear: Yes Change in Voice: Yes Recommendations - Speech Evaluation, Impression/Plan Impression: Audible upper airway secretions. Desaturated. Suctioned food from pharynx.Lethargic. High risk of aspiration. Case reviewed with PMD/Staff. - Disposition Discharge to: [facility] Facility - Dysphagia Impressions/Plan Swallowing Skills: Impaired Dysphagia Impressions: Moderate Impairment, Suspect Aspiration *Silent aspiration: cannot be R/O at bedside Recommendations: Modified Barium Swallow (when stronger and less congested) - Recommendations Diet Consistency: NPO Medication Administration: Crushed with applesauce (Flex head manually and tell pt to swallow. Monitor tolerance/benefit of medication. Pills may remain in pharynx and not be absorbed.) Liquids: NPO
[2018-07-12] MEDS ORDERED: Insulin (LOG) Aspart 100 UNITS/ML VIAL SQ ONE (12:45)
--- NOTE | 2018-07-12 13:30 | PN ---
Progress Note (short form) - Note Progress Note: pt is drowsy but arousable high fever has secretions in throat did not cough while she was fed Vital Signs - 24 hr 07/11/18 07/11/18 07/11/18 14:15 14:33 15:35 Temperature 98.2 F Pulse Rate 102 H 102 H 104 H Respiratory 18 24 H 24 H Rate Blood Pressure 157/92 157/92 149/95 O2 Sat by Pulse Oximetry (%) 07/11/18 07/11/18 07/11/18 15:37 17:44 18:30 Temperature 98.3 F Pulse Rate 104 H 98 H 100 H Respiratory 24 H 24 H 22 H Rate Blood Pressure 149/94 132/87 160/94 O2 Sat by Pulse Oximetry (%) 07/11/18 07/11/18 07/12/18 19:00 19:08 02:00 Temperature 100.1 F H Pulse Rate 104 H 93 H Respiratory 24 H 20 Rate Blood Pressure 150/90 159/99 O2 Sat by Pulse 88 L Oximetry (%) 07/12/18 07/12/18 07/12/18 03:00 06:00 10:00 Temperature 99.2 F 99.9 F H Pulse Rate 103 H 106 H Respiratory 20 18 Rate Blood Pressure 122/78 95/65 O2 Sat by Pulse 97 Oximetry (%) 07/12/18 11:00 Temperature Pulse Rate 130 H Respiratory 18 Rate Blood Pressure 149/95 O2 Sat by Pulse Oximetry (%) Current Medications Generic Name Dose Route Start Last Admin Trade Name Freq PRN Reason Stop Dose Admin Acetaminophen 650 mg 07/12/18 13:42 Tylenol - PO Q6H PRN FEVER Albuterol/Ipratropium 1 amp 07/12/18 11:44 Duoneb - NEB Q6H PRN SHORTNESS OF BREATH Amlodipine Besylate 5 mg 07/11/18 18:45 07/12/18 11:21 Norvasc - PO 5 mg DAILY PAPITO Administration Atorvastatin Calcium 10 mg 07/11/18 22:00 07/11/18 23:06 Lipitor - PO 10 mg HS PAPITO Administration Calcium Carbonate/Cholecalciferol 1 tab 07/11/18 10:00 07/12/18 11:21 Os-Horacio 500+D - PO 1 tab BID PAPITO Administration Docusate Sodium 100 mg 07/11/18 22:00 07/11/18 23:06 Colace - PO 100 mg HS PAPITO Administration Guaifenesin 10 ml 07/12/18 11:46 07/12/18 12:27 Robitussin - PO 10 ml Q4H PRN Administration COUGH Heparin Sodium (Porcine) 5,000 unit 07/11/18 10:00 07/12/18 11:18 Heparin - SQ 5,000 unit BID PAPITO Administration Ceftriaxone Sodium 1 gm/ 50 mls @ 100 mls/hr 07/11/18 20:00 07/12/18 11:50 Dextrose IVPB 100 mls/hr DAILY PAPITO Administration Metronidazole 500 mg in 100 mls @ 100 mls/hr 07/12/18 11:45 07/12/18 12:14 Flagyl 500mg Premixed Ivpb - IVPB 100 mls/hr Q8H-IV PAPITO Administration Amino Acids 1,000 mls @ 84 mls/hr 07/12/18 13:45 Clinimix - IV Q12H PAPITO Insulin Aspart 1 vial 07/12/18 16:30 Novolog Vial Sliding Scale - SQ TIDAC [facility] Protocol Levothyroxine Sodium 100 mcg 07/11/18 07:00 07/12/18 06:05 Synthroid - PO 100 mcg DAILY@0700 PAPITO Administration Metoprolol Tartrate 25 mg 07/11/18 11:30 07/12/18 11:20 Lopressor - PO 25 mg BID PAPITO Administration Sodium Phosphate 133 ml 07/11/18 00:15 Fleet Adult Rectal Enema - RC PRN PRN CONSTIPATION Laboratory Results - last 24 hr 07/11/18 07/12/18 07/12/18 16:45 01:03 05:45 POC Glucometer 112 130 161 07/12/18 11:11 POC Glucometer 218 S1 S2 RRR Tachycardia Lungs decreassed Abd- soft,NT No edema PLAN cehck blood cultuires CXR noted possible aspiration pneumonia add Flagyl ID eval called On Ceftriaxone for UTI Spoke with daughter-- HCP Neurology eval clnimix keep NPO spoke with swallow therapist Problem List - Problems (1) Acute metabolic encephalopathy Code(s): G93.41 - METABOLIC ENCEPHALOPATHY (2) Altered mental status Code(s): R41.82 - ALTERED MENTAL STATUS, UNSPECIFIED Qualifiers: Altered mental status type: unspecified Qualified Code(s): R41.82 - Altered mental status, unspecified (3) Urinary tract infection Code(s): N39.0 - URINARY TRACT INFECTION, SITE NOT SPECIFIED Qualifiers: Urinary tract infection type: site unspecified Hematuria presence: without hematuria Qualified Code(s): N39.0 - Urinary tract infection, site not specified (4) Anxiety Code(s): F41.9 - ANXIETY DISORDER, UNSPECIFIED
[2018-07-12] MEDS ORDERED: AMINO ACIDS 4.25%/D5W 1,000 ML IV SCH (14:00)
[2018-07-12] MEDS: ACETAMINOPHEN 325 MG TABLET (FP) PO PRN (14:50)
[2018-07-12] MEDS: ALBUTEROL SO4 2.5/IPRATROPIUM 0.5 INH SOL 3 ML VIAL.NEB. NEB PRN (15:00)
[2018-07-12 15:05] LABS: HEMATOCRIT 41.5 % (32.4-45.2); HEMOGLOBIN 14.3 GM/dL (10.7-15.3); MCH 31.8 pg (25.7-33.7); MCHC 34.5 g/dl (32.0-36.0); MEAN CELL VOLUME 92.3 fl (80-96); MEAN PLT VOLUME 7.7 fl (7.5-11.1); PLATELET COUNT 233 K/MM3 (134-434); RDW 15.2 % (11.6-15.6); WHITE BLOOD COUNT 15.7 K/mm3 (4.0-10.0)
--- NOTE | 2018-07-12 15:23 | PN ---
Progress Note (short form) - Note Progress Note: ID Consult dictated Probable aspiration pneumonia UTI Toxic metabolic encephalopathy Continue ceftriaxone/flagyl Aspiration precautions
[2018-07-12] MEDS: AMINO ACIDS 4.25%/D5W 1,000 ML IV SCH (16:10)
--- NOTE | 2018-07-12 17:09 | CONS ---
DATE OF CONSULTATION: DATE OF DICTATION: 07/12/2018 HISTORY OF PRESENT ILLNESS: The patient is an 83-year-old female who was evaluated for probable aspiration pneumonia. The patient's history was obtained from her chart as she cannot give a history secondary to her mental status. [facility] with reports of altered mental status and dysarthria. She was evaluated for a possible acute CVA. Her hospital course was significant for improvement in her mental status. On hospital day number 2, the patient appeared congested and was noted to have rales and coarse breath sounds. She was hypoxemic with an O2 saturation of 88% on room air. She also had a low-grade fever. A chest x-ray was performed and showed a probable new right upper lobe infiltrate. At the present time, she is lethargic. She is poorly responsive. She is in no acute respiratory distress. PAST MEDICAL HISTORY: Positive for dementia, hypertension, hyperlipidemia, recurrent urinary tract infections, seizure disorder and thyroid disease. ALLERGIES: No known drug allergies. MEDICATIONS: Synthroid, Zoloft, tramadol, Colace, Flonase, Neurontin, lorazepam, melatonin and Remeron. SOCIAL HISTORY: [facility]. She is dependent for activities of daily living. REVIEW OF SYSTEMS: Neurologic: As per HPI. Cardiac: Negative for chest pain or palpitations. Respiratory: As per HPI. Gastrointestinal: Negative for vomiting or diarrhea. Genitourinary: Positive for urinary tract infection. LABORATORY DATA: White count 6.3, hematocrit 36.4, platelet count 204. Urinalysis shows 52 white cells. A chest x-ray shows congestion with probable right upper lobe infiltrate. PHYSICAL EXAMINATION: General: The patient is poorly responsive. She is in no acute respiratory distress. Vital Signs: Temperature 99.9, T-max 100.1, blood pressure 149/65, pulse 130 and regular, respirations 18 per minute. HEENT:: Sclerae anicteric. Heart: Heart sounds S1, S2. Lungs: Bilateral rhonchi. Abdomen: Soft. No tenderness elicited. No masses, rebound or rigidity. Extremities: Negative for edema. IMPRESSION: 1. Probable right upper lobe aspiration pneumonia. 2. Urinary tract infection. 3. Toxic metabolic encephalopathy. PLAN: 1. Await culture results. 2. Continue empiric ceftriaxone and Flagyl. 3. Aspiration precautions. 4. Neurology followup. 5. We will follow the patient. Thank you for the kind referral. KESHAV BRYAN M.D. [place]/[id number]
--- NOTE | 2018-07-12 17:26 | CON.NEURO ---
Consult - History of Present Illness History of Present Illness: 83 year old female with a history of HTN, HLD, Dementia, Recurrent UTIs, Seizures, Thyroid disfunction [facility] for [facility] status. As per [facility], patient appeared to be more lethargic, with gradual decline, not following commands recently. baseline severe dementia. Sister by bedside; CT HD Impression: No significant interval change or gross acute intracranial pathology is identified. Correlate clinically to determine further evaluation and follow-up - Past Medical History Cardio/Vascular: Yes: HTN Gastrointestinal: Yes: Diverticulosis, Hemorrhoids, Inflamatory Bowel Disease, Irritable Bowel Disease Renal/: Yes: UTI ...: No Psych: Yes: Anxiety, Depression Musculoskeletal: Yes: Chronic low back pain Endocrine: Yes: Hyperthyroidism - Alcohol/Substance Use Hx Alcohol Use: No History of Substance Use: reports: None - Smoking History Smoking history: Unknown if ever smoked Have you smoked in the past 12 months: No - Social History Usual Living Arrangement: Alone ADL: Independent History of Recent Travel: No Home Medications - Allergies Allergies/Adverse Reactions: Allergies Allergy/AdvReac Type Severity Reaction Status Date / Time No Known Drug Allergies Allergy Verified 07/10/18 20:27 - Home Medications Home Medications: Ambulatory Orders Levothyroxine [Synthroid -] 100 mcg PO DAILY 08/24/14 Sertraline HCl [Zoloft -] 25 mg PO BID 08/24/14 Tramadol HCl 50 mg PO Q6H PRN 02/02/15 Calcium Carbonate/Vitamin D3 [Calcium 500 mg-Vit D3 600 Unit] 1 each PO BID Chol/Aa10/Best/Vqmp506/Prt/Lec [Theramine Plus Powder Packet] 27 mg PO DAILY Dextromethorphan HBr/Quinidine [Nuedexta 20-10 mg Capsule] 1 each PO BID Docusate Sodium [Colace] 100 mg PO HS 03/22/18 Fluticasone Prop 0.05% Nasal [Flonase -] 1 - 2 spray NS DAILY 03/22/18 Fosamprenavir Calcium 700 mg PO WEEKLY 03/22/18 Gabapentin [Neurontin] 100 mg PO BID 03/22/18 Lorazepam 0.5 mg PO BID PRN 03/22/18 Mag Hydrox/Al Hydrox/Simeth [Mylanta *Suspension*] 30 ml PO Q6H PRN 03/22/18 Melatonin 5 mg PO HS 03/22/18 Mirtazapine [Remeron -] 15 mg PO HS 03/22/18 Nystatin/Triamcinolone Top Cr [Mycolog II -] 1 applic TP BID 03/22/18 Sennosides [Senna] 8.6 mg PO HS 03/22/18 Sertraline HCl [Zoloft] 100 mg PO DAILY 03/22/18 Simvastatin [Zocor] 10 mg PO HS 03/22/18 Sodium Phosphate,[place]-Dibasic [Fleet Enema] 133 ml RC PRN PRN 03/22/18 Physical Exam-Neuro Vital Signs: Vital Signs Temperature 102.3 F H 07/12/18 14:22 Pulse Rate 114 H 07/12/18 14:22 Respiratory Rate 22 H 07/12/18 14:22 Blood Pressure 150/80 07/12/18 14:22 O2 Sat by Pulse Oximetry (%) 97 07/12/18 03:00 Labs: CBC, BMP 07/12/18 14:28 07/11/18 06:30 INR, PTT INR 1.01 (0.83-1.09) 07/10/18 22:20 Imaging - Results Cat Scan: Report Reviewed, Image Reviewed Problem List - Problems (1) Dementia Code(s): F03.90 - UNSPECIFIED DEMENTIA WITHOUT BEHAVIORAL DISTURBANCE (2) Acute metabolic encephalopathy Code(s): G93.41 - METABOLIC ENCEPHALOPATHY Assessment/Plan 83 year old female with a history of HTN, HLD, Dementia, Recurrent UTIs, Seizures, Thyroid disfunction [facility] for [facility] status. As per [facility], patient appeared to be more lethargic, with gradual decline, not following commands recently. baseline severe dementia. Sister by bedside; CT HD Impression: No significant interval change or gross acute intracranial pathology is identified. Correlate clinically to determine further evaluation and follow-up AP severe dementia with UTI , posisble ASPN PNA no signs of stroke or meningitis ID FU no new RX for now call back PRN DR FLORENCE
[2018-07-12] MEDS: INSULIN SLIDING SCALE (NOVOLOG) 1 VIAL SQ SCH (17:31)
[2018-07-12 19:05] LABS: URINE APPEARANCE SLCLOUDY; URINE BILIRUBIN NEGATIVE (<2.0 mg/dL); URINE COLOR YELLOW; URINE GLUCOSE (UA) NEGATIVE (NEGATIVE); URINE KETONE NEGATIVE (NEGATIVE); URINE LEUK ESTERASE TRACE (NEGATIVE); URINE NITRITE NEGATIVE (NEGATIVE); URINE PROTEIN 1+ (NEGATIVE); URINE UROBILINOGEN NEGATIVE mg/dL (0.2-1.0)
[2018-07-12 19:12] LABS: URINE MUCUS FEW
[2018-07-12] MEDS: DOCUSATE SODIUM 100 MG CAPSULE (FP) PO SCH (21:20)
[2018-07-12] MEDS: ATORVASTATIN CA 10 MG TABLET (FP) PO SCH (21:20)
[2018-07-13] MEDS: ACETAMINOPHEN 325 MG TABLET (FP) PO PRN (00:01)
[2018-07-13] MEDS: AMINO ACIDS 4.25%/D5W 1,000 ML IV SCH ×4 (02:16→22:00)
[2018-07-13 04:18] LABS: HEMATOCRIT 37.6 % (32.4-45.2); MCH 31.9 pg (25.7-33.7); MCHC 34.5 g/dl (32.0-36.0); MEAN CELL VOLUME 92.5 fl (80-96); MEAN PLT VOLUME 7.3 fl (7.5-11.1); PLATELET COUNT 215 K/MM3 (134-434); RBC 4.07 M/mm3 (3.60-5.2); RDW 14.9 % (11.6-15.6); WHITE BLOOD COUNT 10.9 K/mm3 (4.0-10.0)
[2018-07-13 05:32] LABS: ALK PHOS 74 U/L (45-117); ANION GAP 9 MMOL/L (8-16); BILIRUBIN,TOTAL 0.3 mg/dL (0.2-1); BLOOD UREA NITROGEN 40 mg/dL (7-18); CALCIUM 8.7 mg/dL (8.5-10.1); CHLORIDE 105 mmol/L (98-107); CO2 26 mmol/L (21-32); CREATININE 1.4 mg/dL (0.55-1.3); GLUCOSE,RANDOM 171 mg/dL (74-106); POTASSIUM 3.3 mmol/L (3.5-5.1); SGOT/AST 46 U/L (15-37); SGPT/ALT 25 U/L (13-61); SODIUM 139 mmol/L (136-145); TOT PROT 6.3 g/dl (6.4-8.2)
[2018-07-13] MEDS: LEVOTHYROXINE NA 100 MCG TABLET (FP) PO SCH (06:20)
[2018-07-13] MEDS: INSULIN SLIDING SCALE (NOVOLOG) 1 VIAL SQ SCH ×3 (06:22→17:54)
[2018-07-13] MEDS ORDERED: cefTRIAXone SODIUM 1 GM VIAL ONE (10:19)
[2018-07-13] MEDS ORDERED: DEXTROSE 5%-WATER - 50 ML IVPB ONE (10:19)
[2018-07-13] MEDS: CEFTRIAXONE 1 GM in DEXTROSE 5%-WATER - 50 ML IVPB SCH (10:24)
[2018-07-13] MEDS: HEPARIN NA (PORCINE) 5,000 UNITS/ML 1ML VIAL SQ SCH ×2 (10:24→22:07)
[2018-07-13] MEDS: CALCIUM 500MG/VIT-D 200 UNITS COMBO TABLET (FP) PO SCH ×2 (12:25→22:08)
[2018-07-13] MEDS: amLODIPine BESYLATE 5 MG TABLET (FP) PO SCH (12:25)
[2018-07-13] MEDS: METOPROLOL TARTRATE 25 MG TABLET (FP) PO SCH ×2 (12:25→22:08)
--- NOTE | 2018-07-13 15:12 | PN ---
Progress Note, DIRECTOR DATA ARCHITECTURE - Note Progress Note: Selected Entries 07/11/18 07/11/18 07/11/18 02:23 05:18 05:49 Temperature 99.2 F 98.2 F O2 Sat by Pulse 96 96 Oximetry (%) 07/11/18 07/11/18 07/11/18 11:10 11:40 13:32 Temperature 98.3 F 98.7 F 97.6 F O2 Sat by Pulse 96 Oximetry (%) 07/11/18 07/11/18 07/11/18 14:15 18:30 19:00 Temperature 98.2 F 98.3 F O2 Sat by Pulse 88 L Oximetry (%) 07/12/18 07/12/18 07/12/18 02:00 03:00 06:00 Temperature 100.1 F H 99.2 F O2 Sat by Pulse 97 Oximetry (%) 07/12/18 07/12/18 07/12/18 10:00 11:00 14:22 Temperature 99.9 F H 102.3 F H O2 Sat by Pulse 94 L Oximetry (%) 07/12/18 07/12/18 07/12/18 18:53 19:00 21:34 Temperature 100.2 F H 98.5 F O2 Sat by Pulse 96 Oximetry (%) 07/13/18 07/13/18 07/13/18 02:00 03:00 06:00 Temperature 98.0 F 98.7 F O2 Sat by Pulse 94 L Oximetry (%) 07/13/18 10:00 Temperature 98.4 F O2 Sat by Pulse Oximetry (%) Laboratory Tests 07/12/18 07/13/18 14:28 04:10 WBC 15.7 H 10.9 H NPO. Clinimix. UTI. Probable Aspiration PNA. If improves, mbs for possible po diet
--- NOTE | 2018-07-13 15:42 | PN ---
Progress Note, Physician History of Present Illness: More awake and responsive tody Answers simple questions Temps, WBC improved Urine c/s LF - Current Medication List Current Medications: Active Medications Acetaminophen (Tylenol -) 650 mg PO Q6H PRN PRN Reason: FEVER Last Admin: 07/13/18 00:01 Dose: 650 mg Albuterol/Ipratropium (Duoneb -) 1 amp NEB Q6H PRN PRN Reason: SHORTNESS OF BREATH Last Admin: 07/12/18 15:00 Dose: 1 amp Amlodipine Besylate (Norvasc -) 5 mg PO DAILY [facility] Last Admin: 07/13/18 12:25 Dose: Not Given Atorvastatin Calcium (Lipitor -) 10 mg PO HS [facility] Last Admin: 07/12/18 21:20 Dose: 10 mg Calcium Carbonate/Cholecalciferol (Os-Horacio 500+D -) 1 tab PO BID [facility] Last Admin: 07/13/18 12:25 Dose: Not Given Docusate Sodium (Colace -) 100 mg PO HS [facility] Last Admin: 07/12/18 21:20 Dose: 100 mg Guaifenesin (Robitussin -) 10 ml PO Q4H PRN PRN Reason: COUGH Last Admin: 07/12/18 12:27 Dose: 10 ml Heparin Sodium (Porcine) (Heparin -) 5,000 unit SQ BID [facility] Last Admin: 07/13/18 10:24 Dose: 5,000 unit Ceftriaxone Sodium 1 gm/ (Dextrose) 50 mls @ 100 mls/hr IVPB DAILY [facility] Last Admin: 07/13/18 10:24 Dose: 100 mls/hr Metronidazole (Flagyl 500mg Premixed Ivpb -) 500 mg in 100 mls @ 100 mls/hr IVPB Q8H-IV [facility] Last Admin: 07/13/18 10:25 Dose: 100 mls/hr Amino Acids (Clinimix -) 1,000 mls @ 84 mls/hr IV Q12H [facility] Last Admin: 07/13/18 14:54 Dose: Not Given Insulin Aspart (Novolog Vial Sliding Scale -) 1 vial SQ TIDAC [facility]; Protocol Last Admin: 07/13/18 12:26 Dose: Not Given Levothyroxine Sodium (Synthroid -) 100 mcg PO DAILY@0700 [facility] Last Admin: 07/13/18 06:20 Dose: 100 mcg Metoprolol Tartrate (Lopressor -) 25 mg PO BID [facility] Last Admin: 07/13/18 12:25 Dose: Not Given Sodium Phosphate (Fleet Adult Rectal Enema -) 133 ml RC PRN PRN PRN Reason: CONSTIPATION - Objective Vital Signs: Vital Signs Temperature 99.6 F 07/13/18 14:24 Pulse Rate 124 H 07/13/18 14:24 Respiratory Rate 22 H 07/13/18 14:24 Blood Pressure 159/88 07/13/18 14:24 O2 Sat by Pulse Oximetry (%) 94 L 07/13/18 03:00 Constitutional: Yes: No Distress Eyes: Yes: Conjunctiva Clear Cardiovascular: Yes: Regular Rate and Rhythm, S1, S2 Respiratory: Yes: Diminished Gastrointestinal: Yes: Normal Bowel Sounds, Soft. No: Tenderness Edema: No Labs: CBC, BMP 07/13/18 04:10 07/13/18 04:10 INR, PTT INR 1.01 (0.83-1.09) 07/10/18 22:20 Assessment/Plan Probable Aspiration pneumonia UTI Toxic metabolic encephalopathy Azotemia Await c/s Continue ceftriaxone/ flagyl
[2018-07-13] MEDS: ACETAMINOPHEN 1000 MG/100 ML VIAL (NON FORMULARY) IVPB PRN (18:42)
[2018-07-13] MEDS: ALBUTEROL SO4 2.5/IPRATROPIUM 0.5 INH SOL 3 ML VIAL.NEB. NEB PRN (20:16)
[2018-07-13] MEDS: DOCUSATE SODIUM 100 MG CAPSULE (FP) PO SCH (22:07)
[2018-07-13] MEDS: ATORVASTATIN CA 10 MG TABLET (FP) PO SCH ×2 (22:07→22:10)
--- NOTE | 2018-07-13 23:52 | PN ---
Progress Note (short form) - Note Progress Note: pt is drowsy but arousable high fever has secretions in throat fed Vital Signs - 24 hr 07/13/18 07/13/18 07/13/18 02:00 03:00 06:00 Temperature 98.0 F 98.7 F Pulse Rate 103 H 128 H Respiratory 22 H 22 H 22 H Rate Blood Pressure 92/47 L 127/76 O2 Sat by Pulse 94 L Oximetry (%) 07/13/18 07/13/18 07/13/18 10:00 11:00 14:24 Temperature 98.4 F 99.6 F Pulse Rate 113 H 124 H Respiratory 22 H 22 H Rate Blood Pressure 135/81 159/88 O2 Sat by Pulse 93 L Oximetry (%) 07/13/18 07/13/18 18:40 22:00 Temperature 99.7 F H 99.2 F Pulse Rate 126 H 113 H Respiratory 22 H 22 H Rate Blood Pressure 131/76 100/50 L O2 Sat by Pulse Oximetry (%) Current Medications Generic Name Dose Route Start Last Admin Trade Name Freq PRN Reason Stop Dose Admin Acetaminophen 650 mg 07/12/18 13:42 07/13/18 00:01 Tylenol - PO 650 mg Q6H PRN Administration FEVER Acetaminophen 1,000 mg 07/13/18 16:41 07/13/18 18:42 Ofirmev Injection - IVPB 1,000 mg Q6H PRN Administration FEVER Albuterol/Ipratropium 1 amp 07/12/18 11:44 07/13/18 20:16 Duoneb - NEB 1 amp Q6H PRN Administration SHORTNESS OF BREATH Amlodipine Besylate 5 mg 07/11/18 18:45 07/13/18 12:25 Norvasc - PO Not Given DAILY [facility] Atorvastatin Calcium 10 mg 07/11/18 22:00 07/13/18 22:10 Lipitor - PO Not Given HS [facility] Calcium Carbonate/Cholecalciferol 1 tab 07/11/18 10:00 07/13/18 22:08 Os-Horacio 500+D - PO Not Given BID [facility] Docusate Sodium 100 mg 07/11/18 22:00 07/13/18 22:07 Colace - PO Not Given HS [facility] Guaifenesin 10 ml 07/12/18 11:46 07/12/18 12:27 Robitussin - PO 10 ml Q4H PRN Administration COUGH Heparin Sodium (Porcine) 5,000 unit 07/11/18 10:00 07/13/18 22:07 Heparin - SQ 5,000 unit BID [facility] Administration Ceftriaxone Sodium 1 gm/ 50 mls @ 100 mls/hr 07/11/18 20:00 07/13/18 10:24 Dextrose IVPB 100 mls/hr DAILY [facility] Administration Metronidazole 500 mg in 100 mls @ 100 mls/hr 07/12/18 11:45 07/13/18 17:58 Flagyl 500mg Premixed Ivpb - IVPB 100 mls/hr Q8H-IV [facility] Administration Amino Acids 1,000 mls @ 84 mls/hr 07/12/18 14:17 07/13/18 14:54 Clinimix - IV Not Given Q12H [facility] Insulin Aspart 1 vial 07/12/18 16:30 07/13/18 17:54 Novolog Vial Sliding Scale - SQ 4 units TIDAC [facility] Administration Protocol Levothyroxine Sodium 100 mcg 07/11/18 07:00 07/13/18 06:20 Synthroid - PO 100 mcg DAILY@0700 [facility] Administration Metoprolol Tartrate 25 mg 07/11/18 11:30 07/13/18 22:08 Lopressor - PO Not Given BID [facility] Sodium Phosphate 133 ml 07/11/18 00:15 Fleet Adult Rectal Enema - RC PRN PRN CONSTIPATION Laboratory Results - last 24 hr 07/13/18 07/13/18 07/13/18 04:10 04:10 06:15 WBC 10.9 H RBC 4.07 Hgb 13.0 Hct 37.6 MCV 92.5 MCH 31.9 MCHC 34.5 RDW 14.9 Plt Count 215 MPV 7.3 L Sodium 139 Potassium 3.3 L Chloride 105 Carbon Dioxide 26 Anion Gap 9 BUN 40 H Creatinine 1.4 H Creat Clearance w eGFR 36.00 POC Glucometer 158 Random Glucose 171 H Calcium 8.7 Total Bilirubin 0.3 AST 46 H ALT 25 Alkaline Phosphatase 74 Total Protein 6.3 L Albumin 3.0 L 07/13/18 07/13/18 12:24 17:47 WBC RBC Hgb Hct MCV MCH MCHC RDW Plt Count MPV Sodium Potassium Chloride Carbon Dioxide Anion Gap BUN Creatinine Creat Clearance w eGFR POC Glucometer 170 207 Random Glucose Calcium Total Bilirubin AST ALT Alkaline Phosphatase Total Protein Albumin S1 S2 RRR Tachycardia Lungs decreassed Abd- soft,NT No edema PLAN CXR noted possible aspiration pneumonia ID eval noted spoke with son today- condition is poor, may need to think about feeding options /palliative care On Ceftriaxone for UTI Neurology eval appreciated clnimix keep NPO spoke with swallow therapist Problem List - Problems (1) Acute metabolic encephalopathy Code(s): G93.41 - METABOLIC ENCEPHALOPATHY (2) Altered mental status Code(s): R41.82 - ALTERED MENTAL STATUS, UNSPECIFIED Qualifiers: Altered mental status type: unspecified Qualified Code(s): R41.82 - Altered mental status, unspecified (3) Urinary tract infection Code(s): N39.0 - URINARY TRACT INFECTION, SITE NOT SPECIFIED Qualifiers: Urinary tract infection type: site unspecified Hematuria presence: without hematuria Qualified Code(s): N39.0 - Urinary tract infection, site not specified (4) Anxiety Code(s): F41.9 - ANXIETY DISORDER, UNSPECIFIED
[2018-07-14] MEDS: LEVOTHYROXINE NA 100 MCG TABLET (FP) PO SCH (06:11)
[2018-07-14] MEDS: INSULIN SLIDING SCALE (NOVOLOG) 1 VIAL SQ SCH ×4 (06:50→17:04)
[2018-07-14] MEDS: ALBUTEROL SO4 2.5/IPRATROPIUM 0.5 INH SOL 3 ML VIAL.NEB. NEB PRN ×2 (08:54→20:00)
[2018-07-14 09:24] LABS: BASO % 0.3 % (0-2.0); EOS % 0.2 % (0-4.5); HEMATOCRIT 36.6 % (32.4-45.2); HEMOGLOBIN 11.9 GM/dL (10.7-15.3); LYMPH % 15.4 % (8-40); MCH 30.5 pg (25.7-33.7); MCHC 32.7 g/dl (32.0-36.0); MEAN CELL VOLUME 93.3 fl (80-96); MEAN PLT VOLUME 7.4 fl (7.5-11.1); MONO % 6.4 % (3.8-10.2); NEUT % 77.7 % (42.8-82.8); PLATELET COUNT 210 K/MM3 (134-434); RBC 3.92 M/mm3 (3.60-5.2); WHITE BLOOD COUNT 8.4 K/mm3 (4.0-10.0)
[2018-07-14 10:02] LABS: ANION GAP 8 MMOL/L (8-16); BLOOD UREA NITROGEN 35 mg/dL (7-18); CALCIUM 7.9 mg/dL (8.5-10.1); CHLORIDE 105 mmol/L (98-107); CO2 24 mmol/L (21-32); CREATININE 0.7 mg/dL (0.55-1.3); GLUCOSE,RANDOM 161 mg/dL (74-106); POTASSIUM 3.1 mmol/L (3.5-5.1); SODIUM 137 mmol/L (136-145)
[2018-07-14] MEDS ORDERED: cefTRIAXone SODIUM 1 GM VIAL ONE (10:05)
[2018-07-14] MEDS ORDERED: PT OWN MED DRAWER 7, Y5N ONE ×2 (10:05→16:54)
[2018-07-14] MEDS ORDERED: DEXTROSE 5%-WATER - 50 ML IVPB ONE (10:06)
[2018-07-14] MEDS: HEPARIN NA (PORCINE) 5,000 UNITS/ML 1ML VIAL SQ SCH ×2 (10:12→22:54)
[2018-07-14] MEDS: AMINO ACIDS 4.25%/D5W 1,000 ML IV SCH (10:12)
[2018-07-14] MEDS: amLODIPine BESYLATE 5 MG TABLET (FP) PO SCH (10:13)
[2018-07-14] MEDS: METOPROLOL TARTRATE 25 MG TABLET (FP) PO SCH ×2 (10:13→21:52)
[2018-07-14] MEDS: CALCIUM 500MG/VIT-D 200 UNITS COMBO TABLET (FP) PO SCH ×2 (10:13→21:52)
[2018-07-14] MEDS: CEFTRIAXONE 1 GM in DEXTROSE 5%-WATER - 50 ML IVPB SCH (10:13)
--- NOTE | 2018-07-14 11:46 | PN ---
Progress Note, Physician History of Present Illness: Awake but not verbally responsive today Low grade temp Breathing non-labored Urine c/s Klebsiella - Current Medication List Current Medications: Active Medications Acetaminophen (Tylenol -) 650 mg PO Q6H PRN PRN Reason: FEVER Last Admin: 07/13/18 00:01 Dose: 650 mg Acetaminophen (Ofirmev Injection -) 1,000 mg IVPB Q6H PRN PRN Reason: FEVER Last Admin: 07/13/18 18:42 Dose: 1,000 mg Albuterol/Ipratropium (Duoneb -) 1 amp NEB Q6H PRN PRN Reason: SHORTNESS OF BREATH Last Admin: 07/14/18 08:54 Dose: 1 amp Amlodipine Besylate (Norvasc -) 5 mg PO DAILY [facility] Last Admin: 07/14/18 10:13 Dose: Not Given Atorvastatin Calcium (Lipitor -) 10 mg PO HS [facility] Last Admin: 07/13/18 22:10 Dose: Not Given Calcium Carbonate/Cholecalciferol (Os-Horacio 500+D -) 1 tab PO BID [facility] Last Admin: 07/14/18 10:13 Dose: Not Given Docusate Sodium (Colace -) 100 mg PO HS [facility] Last Admin: 07/13/18 22:07 Dose: Not Given Guaifenesin (Robitussin -) 10 ml PO Q4H PRN PRN Reason: COUGH Last Admin: 07/12/18 12:27 Dose: 10 ml Heparin Sodium (Porcine) (Heparin -) 5,000 unit SQ BID [facility] Last Admin: 07/14/18 10:12 Dose: 5,000 unit Ceftriaxone Sodium 1 gm/ (Dextrose) 50 mls @ 100 mls/hr IVPB DAILY [facility] Last Admin: 07/14/18 10:13 Dose: 100 mls/hr Metronidazole (Flagyl 500mg Premixed Ivpb -) 500 mg in 100 mls @ 100 mls/hr IVPB Q8H-IV [facility] Last Admin: 07/14/18 10:13 Dose: 100 mls/hr Amino Acids (Clinimix -) 1,000 mls @ 84 mls/hr IV Q12H [facility] Last Admin: 07/14/18 10:12 Dose: 84 mls/hr Insulin Aspart (Novolog Vial Sliding Scale -) 1 vial SQ TIDAC [facility]; Protocol Last Admin: 07/14/18 11:44 Dose: 2 units Levothyroxine Sodium (Synthroid -) 100 mcg PO DAILY@0700 [facility] Last Admin: 07/14/18 06:11 Dose: Not Given Metoprolol Tartrate (Lopressor -) 25 mg PO BID [facility] Last Admin: 07/14/18 10:13 Dose: Not Given Sodium Phosphate (Fleet Adult Rectal Enema -) 133 ml RC PRN PRN PRN Reason: CONSTIPATION - Objective Vital Signs: Vital Signs Temperature 99.4 F 07/14/18 06:00 Pulse Rate 110 H 07/14/18 06:00 Respiratory Rate 22 H 07/14/18 06:00 Blood Pressure 118/58 L 07/14/18 06:00 O2 Sat by Pulse Oximetry (%) 94 L 07/13/18 21:00 Constitutional: Yes: No Distress Eyes: Yes: Conjunctiva Clear Cardiovascular: Yes: Regular Rate and Rhythm, S1, S2 Respiratory: Yes: Diminished Gastrointestinal: Yes: Normal Bowel Sounds, Soft. No: Tenderness Edema: No Labs: CBC, BMP 07/14/18 08:35 07/14/18 08:35 INR, PTT INR 1.01 (0.83-1.09) 07/10/18 22:20 Assessment/Plan Probable Aspiration pneumonia UTI Toxic metabolic encephalopathy Azotemia Continue ceftriaxone/ flagyl
--- NOTE | 2018-07-14 13:05 | PN ---
Progress Note (short form) - Note Progress Note: pt seen/ examined Pt seen/ examined chart reviewed drowsy but arousable chronic ill appearance Vital Signs Temp 99 F 07/14/18 09:00 Pulse 112 H 07/14/18 09:00 Resp 22 H 07/14/18 09:00 BP 132/94 07/14/18 09:00 Pulse Ox 94 L 07/13/18 21:00 Intake & Output 07/13/18 07/14/18 07/14/18 23:59 11:59 23:59 Intake Total 1200 1024 Balance 1200 1024 Weight 128 lb Intake: IV 850 924 CLINIMIX 84 ML/HR 850 924 IVPB 350 100 Oral 0 Other: Voiding Method Diaper Incontinent # Unmeasured Voids Void 3 2 Bowel Movement No No Height 4 ft 8 in Body Mass Index (BMI) 28.7 Active Medications Acetaminophen (Tylenol -) 650 mg PO Q6H PRN PRN Reason: FEVER Last Admin: 07/13/18 00:01 Dose: 650 mg Acetaminophen (Ofirmev Injection -) 1,000 mg IVPB Q6H PRN PRN Reason: FEVER Last Admin: 07/13/18 18:42 Dose: 1,000 mg Albuterol/Ipratropium (Duoneb -) 1 amp NEB Q6H PRN PRN Reason: SHORTNESS OF BREATH Last Admin: 07/14/18 08:54 Dose: 1 amp Amlodipine Besylate (Norvasc -) 5 mg PO DAILY [facility] Last Admin: 07/14/18 10:13 Dose: Not Given Atorvastatin Calcium (Lipitor -) 10 mg PO HS [facility] Last Admin: 07/13/18 22:10 Dose: Not Given Calcium Carbonate/Cholecalciferol (Os-Horacio 500+D -) 1 tab PO BID [facility] Last Admin: 07/14/18 10:13 Dose: Not Given Docusate Sodium (Colace -) 100 mg PO HS [facility] Last Admin: 07/13/18 22:07 Dose: Not Given Guaifenesin (Robitussin -) 10 ml PO Q4H PRN PRN Reason: COUGH Last Admin: 07/12/18 12:27 Dose: 10 ml Heparin Sodium (Porcine) (Heparin -) 5,000 unit SQ BID [facility] Last Admin: 07/14/18 10:12 Dose: 5,000 unit Ceftriaxone Sodium 1 gm/ (Dextrose) 50 mls @ 100 mls/hr IVPB DAILY [facility] Last Admin: 07/14/18 10:13 Dose: 100 mls/hr Metronidazole (Flagyl 500mg Premixed Ivpb -) 500 mg in 100 mls @ 100 mls/hr IVPB Q8H-IV [facility] Last Admin: 07/14/18 10:13 Dose: 100 mls/hr Amino Acids (Clinimix -) 1,000 mls @ 84 mls/hr IV Q12H [facility] Last Admin: 07/14/18 10:12 Dose: 84 mls/hr Potassium Chloride (Potassium Chloride 10 Meq Premix Ivpb -) 10 meq in 100 mls @ 100 mls/hr IVPB Q60M [facility] Stop: 07/14/18 16:14 Insulin Aspart (Novolog Vial Sliding Scale -) 1 vial SQ TIDAC [facility]; Protocol Last Admin: 07/14/18 11:44 Dose: 2 units Levothyroxine Sodium (Synthroid -) 100 mcg PO DAILY@0700 [facility] Last Admin: 07/14/18 06:11 Dose: Not Given Metoprolol Tartrate (Lopressor -) 25 mg PO BID [facility] Last Admin: 07/14/18 10:13 Dose: Not Given Sodium Phosphate (Fleet Adult Rectal Enema -) 133 ml RC PRN PRN PRN Reason: CONSTIPATION CBC, BMP 07/14/18 08:35 07/14/18 Physical Exam Drowsy/ arousable Lungs decreased at bses cvs- s1,s2 rrr Abd- soft,NT No edema PLAN abx clinimix continue present care condition poor will follow I Problem List - Problems (1) Acute metabolic encephalopathy Code(s): G93.41 - METABOLIC ENCEPHALOPATHY (2) Altered mental status Code(s): R41.82 - ALTERED MENTAL STATUS, UNSPECIFIED Qualifiers: Altered mental status type: unspecified Qualified Code(s): R41.82 - Altered mental status, unspecified (3) Urinary tract infection Code(s): N39.0 - URINARY TRACT INFECTION, SITE NOT SPECIFIED Qualifiers: Urinary tract infection type: site unspecified Hematuria presence: without hematuria Qualified Code(s): N39.0 - Urinary tract infection, site not specified (4) Anxiety Code(s): F41.9 - ANXIETY DISORDER, UNSPECIFIED
[2018-07-14] MEDS: KCL 10 MEQ IVPB 10 MEQ/100 ML INFUS.BAG IVPB SCH ×3 (13:36→15:30)
[2018-07-14] MEDS: ATORVASTATIN CA 10 MG TABLET (FP) PO SCH (21:52)
[2018-07-14] MEDS: DOCUSATE SODIUM 100 MG CAPSULE (FP) PO SCH (21:52)
[2018-07-15] MEDS: AMINO ACIDS 4.25%/D5W 1,000 ML IV SCH ×2 (01:00→10:08)
[2018-07-15] MEDS: ALBUTEROL SO4 2.5/IPRATROPIUM 0.5 INH SOL 3 ML VIAL.NEB. NEB PRN (02:48)
[2018-07-15] MEDS: LEVOTHYROXINE NA 100 MCG TABLET (FP) PO SCH (06:07)
[2018-07-15] MEDS: INSULIN SLIDING SCALE (NOVOLOG) 1 VIAL SQ SCH ×3 (06:17→17:18)
[2018-07-15 08:24] LABS: BASO % 0.4 % (0-2.0); EOS % 0.4 % (0-4.5); HEMATOCRIT 36.9 % (32.4-45.2); HEMOGLOBIN 12.2 GM/dL (10.7-15.3); MCH 30.6 pg (25.7-33.7); MEAN PLT VOLUME 7.2 fl (7.5-11.1); MONO % 8.1 % (3.8-10.2); NEUT % 81.1 % (42.8-82.8); PLATELET COUNT 244 K/MM3 (134-434); RBC 3.97 M/mm3 (3.60-5.2); RDW 15.2 % (11.6-15.6); WHITE BLOOD COUNT 7.3 K/mm3 (4.0-10.0)
[2018-07-15 09:05] LABS: ALBUMIN 2.7 g/dl (3.4-5.0); ALK PHOS 71 U/L (45-117); ANION GAP 9 MMOL/L (8-16); BILIRUBIN,TOTAL 0.2 mg/dL (0.2-1); BLOOD UREA NITROGEN 30 mg/dL (7-18); CALCIUM 7.8 mg/dL (8.5-10.1); CHLORIDE 110 mmol/L (98-107); CO2 22 mmol/L (21-32); CREATININE 0.6 mg/dL (0.55-1.3); GLUCOSE,RANDOM 172 mg/dL (74-106); POTASSIUM 3.5 mmol/L (3.5-5.1); SGOT/AST 31 U/L (15-37); SGPT/ALT 24 U/L (13-61); SODIUM 141 mmol/L (136-145)
[2018-07-15] MEDS ORDERED: DEXTROSE 5%-WATER - 50 ML IVPB ONE (09:21)
[2018-07-15] MEDS ORDERED: cefTRIAXone SODIUM 1 GM VIAL ONE (09:21)
[2018-07-15] MEDS ORDERED: PT OWN MED DRAWER 7, Y5N ONE (09:21)
[2018-07-15] MEDS: METOPROLOL TARTRATE 25 MG TABLET (FP) PO SCH ×2 (10:07→22:53)
[2018-07-15] MEDS: HEPARIN NA (PORCINE) 5,000 UNITS/ML 1ML VIAL SQ SCH ×2 (10:07→22:35)
[2018-07-15] MEDS: CEFTRIAXONE 1 GM in DEXTROSE 5%-WATER - 50 ML IVPB SCH (10:07)
[2018-07-15] MEDS: amLODIPine BESYLATE 5 MG TABLET (FP) PO SCH (10:08)
[2018-07-15] MEDS: CALCIUM 500MG/VIT-D 200 UNITS COMBO TABLET (FP) PO SCH ×2 (10:08→22:53)
--- NOTE | 2018-07-15 12:05 | PN ---
Progress Note (short form) - Note Progress Note: more awake. non verbal afebrile Vital Signs Temp 98 F 07/15/18 09:00 Pulse 110 H 07/15/18 09:00 Resp 22 H 07/15/18 09:00 BP 143/93 07/15/18 09:00 Pulse Ox 96 07/14/18 21:00 Intake & Output 07/14/18 07/15/18 07/15/18 23:59 11:59 23:59 Intake Total 1558 940 Balance 1558 940 Intake: IV 1008 840 CLINIMIX 84 ML/HR 1008 840 IVPB 550 100 Oral 0 Other: Voiding Method Incontinent Incontinent # Unmeasured Voids Straight Cath 0 Void 2 Bowel Movement No Active Medications Acetaminophen (Tylenol -) 650 mg PO Q6H PRN PRN Reason: FEVER Last Admin: 07/13/18 00:01 Dose: 650 mg Acetaminophen (Ofirmev Injection -) 1,000 mg IVPB Q6H PRN PRN Reason: FEVER Last Admin: 07/13/18 18:42 Dose: 1,000 mg Albuterol/Ipratropium (Duoneb -) 1 amp NEB Q6H PRN PRN Reason: SHORTNESS OF BREATH Last Admin: 07/15/18 02:48 Dose: 1 amp Amlodipine Besylate (Norvasc -) 5 mg PO DAILY [facility] Last Admin: 07/15/18 10:08 Dose: Not Given Atorvastatin Calcium (Lipitor -) 10 mg PO HS [facility] Last Admin: 07/14/18 21:52 Dose: Not Given Calcium Carbonate/Cholecalciferol (Os-Horacio 500+D -) 1 tab PO BID [facility] Last Admin: 07/15/18 10:08 Dose: Not Given Docusate Sodium (Colace -) 100 mg PO HS [facility] Last Admin: 07/14/18 21:52 Dose: Not Given Guaifenesin (Robitussin -) 10 ml PO Q4H PRN PRN Reason: COUGH Last Admin: 07/12/18 12:27 Dose: 10 ml Heparin Sodium (Porcine) (Heparin -) 5,000 unit SQ BID [facility] Last Admin: 07/15/18 10:07 Dose: 5,000 unit Ceftriaxone Sodium 1 gm/ (Dextrose) 50 mls @ 100 mls/hr IVPB DAILY [facility] Last Admin: 07/15/18 10:07 Dose: 100 mls/hr Metronidazole (Flagyl 500mg Premixed Ivpb -) 500 mg in 100 mls @ 100 mls/hr IVPB Q8H-IV [facility] Last Admin: 07/15/18 10:07 Dose: 100 mls/hr Amino Acids (Clinimix -) 1,000 mls @ 84 mls/hr IV Q12H [facility] Last Admin: 07/15/18 10:08 Dose: 84 mls/hr Insulin Aspart (Novolog Vial Sliding Scale -) 1 vial SQ TIDAC [facility]; Protocol Last Admin: 07/15/18 11:18 Dose: Not Given Levothyroxine Sodium (Synthroid -) 100 mcg PO DAILY@0700 [facility] Last Admin: 07/15/18 06:07 Dose: Not Given Metoprolol Tartrate (Lopressor -) 25 mg PO BID [facility] Last Admin: 07/15/18 10:07 Dose: Not Given Sodium Phosphate (Fleet Adult Rectal Enema -) 133 ml RC PRN PRN PRN Reason: CONSTIPATION CBC, BMP 07/15/18 07:00 07/15/18 07:00 Microbiology 07/12/18 19:02 Gram Stain - Final Sputum - Oropharynx Suctioned Sputum Sputum Culture - Final Yeast Like Organism 07/12/18 14:28 Blood Culture - Preliminary Blood - Peripheral Venous NO GROWTH OBTAINED AFTER 48 HOURS, INCUBATION TO CONTINUE FOR 3 DAYS. 07/12/18 14:28 Blood Culture - Preliminary Blood - Peripheral Venous NO GROWTH OBTAINED AFTER 48 HOURS, INCUBATION TO CONTINUE FOR 3 DAYS. 07/10/18 21:52 Urine Culture - Final Urine - Urine - Catheterized Klebsiella Pneumoniae Physical Exam Drowsy/ arousable Lungs decreased at bses cvs- s1,s2 rrr Abd- soft,NT No edema PLAN overall looks better abx clinimix continue present care condition remains poor npo swallow eval - likely tomorrow will follow I Problem List - Problems (1) Acute metabolic encephalopathy Code(s): G93.41 - METABOLIC ENCEPHALOPATHY (2) Altered mental status Code(s): R41.82 - ALTERED MENTAL STATUS, UNSPECIFIED Qualifiers: Altered mental status type: unspecified Qualified Code(s): R41.82 - Altered mental status, unspecified (3) Urinary tract infection Code(s): N39.0 - URINARY TRACT INFECTION, SITE NOT SPECIFIED Qualifiers: Urinary tract infection type: site unspecified Hematuria presence: without hematuria Qualified Code(s): N39.0 - Urinary tract infection, site not specified (4) Anxiety Code(s): F41.9 - ANXIETY DISORDER, UNSPECIFIED
[2018-07-15] MEDS: ATORVASTATIN CA 10 MG TABLET (FP) PO SCH (22:53)
[2018-07-15] MEDS: DOCUSATE SODIUM 100 MG CAPSULE (FP) PO SCH (22:53)
[2018-07-16] MEDS: AMINO ACIDS 4.25%/D5W 1,000 ML IV SCH ×3 (01:01→21:38)
[2018-07-16] MEDS: ALBUTEROL SO4 2.5/IPRATROPIUM 0.5 INH SOL 3 ML VIAL.NEB. NEB PRN ×3 (03:53→21:32)
[2018-07-16] MEDS: LEVOTHYROXINE NA 100 MCG TABLET (FP) PO SCH (06:41)
[2018-07-16] MEDS: INSULIN SLIDING SCALE (NOVOLOG) 1 VIAL SQ SCH ×3 (06:44→17:21)
[2018-07-16] MEDS: CEFTRIAXONE 1 GM in DEXTROSE 5%-WATER - 50 ML IVPB SCH (10:10)
[2018-07-16] MEDS: amLODIPine BESYLATE 5 MG TABLET (FP) PO SCH (10:58)
[2018-07-16] MEDS: CALCIUM 500MG/VIT-D 200 UNITS COMBO TABLET (FP) PO SCH ×2 (10:58→21:30)
[2018-07-16] MEDS: METOPROLOL TARTRATE 25 MG TABLET (FP) PO SCH ×2 (10:58→21:30)
[2018-07-16] MEDS ORDERED: DEXTROSE 5%-WATER - 50 ML IVPB ONE (11:03)
[2018-07-16] MEDS ORDERED: cefTRIAXone SODIUM 1 GM VIAL ONE (11:03)
[2018-07-16] MEDS: HEPARIN NA (PORCINE) 5,000 UNITS/ML 1ML VIAL SQ SCH ×2 (11:10→21:30)
--- NOTE | 2018-07-16 11:48 | PN ---
Progress Note, [employer] - Note Progress Note: Selected Entries 07/16/18 07/16/18 07/16/18 02:24 07:36 11:46 Breakfast NPO Temperature 97.8 F 97.2 F L Laboratory Tests 07/15/18 07:00 WBC 7.3 Arousable today, verbalized but unintelligible to me (language barrier?) Pt has been NPO, and is less congested. Accepted PO trials of puree with delayed but fairly brisk swallow without overty signs of aspiration. Aspiration risk greater on thin liquids due to viscosity and delayed swallow onset. Suggest MBS to r/o aspiration/stasis
--- NOTE | 2018-07-16 12:38 | PN ---
Progress Note (short form) - Note Progress Note: more awake answers simple questions denies pain afebrile Vital Signs Temp 97.2 F L 07/16/18 07:36 Pulse 104 H 07/16/18 07:36 Resp 20 07/16/18 07:36 BP 130/72 07/16/18 07:36 Pulse Ox 100 07/15/18 21:00 Intake & Output 07/15/18 07/16/18 07/16/18 23:59 11:59 23:59 Intake Total 1258 1108 Balance 1258 1108 Intake: IV 1008 1008 CLINIMIX 84 ML/HR 1008 1008 IVPB 250 100 Oral 0 Other: Voiding Method Incontinent Incontinent # Unmeasured Voids Straight Cath 0 Void 3 Bowel Movement Yes Yes # Bowel Movements 1 1 Active Medications Acetaminophen (Tylenol -) 650 mg PO Q6H PRN PRN Reason: FEVER Last Admin: 07/13/18 00:01 Dose: 650 mg Acetaminophen (Ofirmev Injection -) 1,000 mg IVPB Q6H PRN PRN Reason: FEVER Last Admin: 07/13/18 18:42 Dose: 1,000 mg Albuterol/Ipratropium (Duoneb -) 1 amp NEB Q6H PRN PRN Reason: SHORTNESS OF BREATH Last Admin: 07/16/18 07:58 Dose: 1 amp Amlodipine Besylate (Norvasc -) 5 mg PO DAILY [facility] Last Admin: 07/16/18 10:58 Dose: Not Given Atorvastatin Calcium (Lipitor -) 10 mg PO HS [facility] Last Admin: 07/15/18 22:53 Dose: Not Given Calcium Carbonate/Cholecalciferol (Os-Horacio 500+D -) 1 tab PO BID [facility] Last Admin: 07/16/18 10:58 Dose: Not Given Docusate Sodium (Colace -) 100 mg PO HS [facility] Last Admin: 07/15/18 22:53 Dose: Not Given Guaifenesin (Robitussin -) 10 ml PO Q4H PRN PRN Reason: COUGH Last Admin: 07/12/18 12:27 Dose: 10 ml Heparin Sodium (Porcine) (Heparin -) 5,000 unit SQ BID [facility] Last Admin: 07/16/18 11:10 Dose: 5,000 unit Ceftriaxone Sodium 1 gm/ (Dextrose) 50 mls @ 100 mls/hr IVPB DAILY [facility] Last Admin: 07/16/18 10:10 Dose: 100 mls/hr Metronidazole (Flagyl 500mg Premixed Ivpb -) 500 mg in 100 mls @ 100 mls/hr IVPB Q8H-IV [facility] Last Admin: 07/16/18 11:10 Dose: 100 mls/hr Amino Acids (Clinimix -) 1,000 mls @ 84 mls/hr IV Q12H [facility] Last Admin: 07/16/18 10:57 Dose: Not Given Insulin Aspart (Novolog Vial Sliding Scale -) 1 vial SQ TIDAC [facility]; Protocol Last Admin: 07/16/18 11:09 Dose: Not Given Levothyroxine Sodium (Synthroid -) 100 mcg PO DAILY@0700 [facility] Last Admin: 07/16/18 06:41 Dose: Not Given Metoprolol Tartrate (Lopressor -) 25 mg PO BID [facility] Last Admin: 07/16/18 10:58 Dose: Not Given Sodium Phosphate (Fleet Adult Rectal Enema -) 133 ml RC PRN PRN PRN Reason: CONSTIPATION CBC, BMP 07/15/18 07:00 07/15/18 07:00 Microbiology 07/12/18 14:28 Blood Culture - Preliminary Blood - Peripheral Venous NO GROWTH OBTAINED AFTER 72 HOURS, INCUBATION TO CONTINUE FOR 2 DAYS. 07/12/18 14:28 Blood Culture - Preliminary Blood - Peripheral Venous NO GROWTH OBTAINED AFTER 72 HOURS, INCUBATION TO CONTINUE FOR 2 DAYS. 07/12/18 19:02 Gram Stain - Final Sputum - Oropharynx Suctioned Sputum Sputum Culture - Final Yeast Like Organism Physical Exam awake/ comfortable Lungs decreased at bases cvs- s1,s2 rrr Abd- soft,NT No edema PLAN overall looks better abx clinimix continue present care condition better npo swallow eval - today Discussed with [facility]. will follow
[2018-07-16] MEDS: ATORVASTATIN CA 10 MG TABLET (FP) PO SCH (21:30)
[2018-07-16] MEDS: DOCUSATE SODIUM 100 MG CAPSULE (FP) PO SCH (21:31)
[2018-07-17] MEDS: INSULIN SLIDING SCALE (NOVOLOG) 1 VIAL SQ SCH ×3 (06:24→17:30)
[2018-07-17] MEDS: LEVOTHYROXINE NA 100 MCG TABLET (FP) PO SCH (06:24)
[2018-07-17] MEDS ORDERED: cefTRIAXone SODIUM 1 GM VIAL ONE (09:23)
[2018-07-17] MEDS ORDERED: DEXTROSE 5%-WATER - 50 ML IVPB ONE (09:24)
[2018-07-17] MEDS: AMINO ACIDS 4.25%/D5W 1,000 ML IV SCH (09:26)
[2018-07-17] MEDS: CEFTRIAXONE 1 GM in DEXTROSE 5%-WATER - 50 ML IVPB SCH (09:27)
[2018-07-17] MEDS: CALCIUM 500MG/VIT-D 200 UNITS COMBO TABLET (FP) PO SCH ×2 (09:33→21:31)
[2018-07-17] MEDS: HEPARIN NA (PORCINE) 5,000 UNITS/ML 1ML VIAL SQ SCH ×2 (09:33→21:30)
[2018-07-17] MEDS: METOPROLOL TARTRATE 25 MG TABLET (FP) PO SCH ×2 (09:33→21:30)
[2018-07-17] MEDS: amLODIPine BESYLATE 5 MG TABLET (FP) PO SCH (09:33)
--- NOTE | 2018-07-17 12:27 | PN ---
Progress Note (short form) - Note Progress Note: pt seen/ examined awake/ comfortable much more alert/ awake eating food now afebrile Vital Signs Temp 97.9 F 07/17/18 10:00 Pulse 92 H 07/17/18 10:00 Resp 22 H 07/17/18 10:00 BP 143/88 07/17/18 10:00 Pulse Ox 97 07/17/18 09:00 Intake & Output 07/16/18 07/17/18 07/17/18 23:59 11:59 23:59 Intake Total 1854 1300 Balance 1854 1300 Intake: IV 1504 840 CLINIMIX 84 ML/HR 1504 840 IVPB 350 100 Oral 0 360 Other: Voiding Method Incontinent Incontinent # Unmeasured Voids Straight Cath 2 1 Void 2 0 Bowel Movement No Yes Body Mass Index (BMI) 28.7 Active Medications Acetaminophen (Tylenol -) 650 mg PO Q6H PRN PRN Reason: FEVER Last Admin: 07/13/18 00:01 Dose: 650 mg Acetaminophen (Ofirmev Injection -) 1,000 mg IVPB Q6H PRN PRN Reason: FEVER Last Admin: 07/13/18 18:42 Dose: 1,000 mg Amlodipine Besylate (Norvasc -) 5 mg PO DAILY [facility] Last Admin: 07/17/18 09:33 Dose: 5 mg Atorvastatin Calcium (Lipitor -) 10 mg PO [facility] Last Admin: 07/16/18 21:30 Dose: 10 mg Calcium Carbonate/Cholecalciferol (Os-Horacio 500+D -) 1 tab PO BID [facility] Last Admin: 07/17/18 09:33 Dose: 1 tab Docusate Sodium (Colace -) 100 mg PO [facility] Last Admin: 07/16/18 21:31 Dose: Not Given Guaifenesin (Robitussin -) 10 ml PO Q4H PRN PRN Reason: COUGH Last Admin: 07/12/18 12:27 Dose: 10 ml Heparin Sodium (Porcine) (Heparin -) 5,000 unit SQ BID [facility] Last Admin: 07/17/18 09:33 Dose: 5,000 unit Ceftriaxone Sodium 1 gm/ (Dextrose) 50 mls @ 100 mls/hr IVPB DAILY [facility] Last Admin: 07/17/18 09:27 Dose: 100 mls/hr Metronidazole (Flagyl 500mg Premixed Ivpb -) 500 mg in 100 mls @ 100 mls/hr IVPB Q8H-IV [facility] Last Admin: 07/17/18 09:58 Dose: 100 mls/hr Insulin Aspart (Novolog Vial Sliding Scale -) 1 vial SQ TIDAC [facility]; Protocol Last Admin: 07/17/18 11:30 Dose: 2 units Levothyroxine Sodium (Synthroid -) 100 mcg PO DAILY@0700 [facility] Last Admin: 07/17/18 06:24 Dose: 100 mcg Metoprolol Tartrate (Lopressor -) 25 mg PO BID [facility] Last Admin: 07/17/18 09:33 Dose: 25 mg Sodium Phosphate (Fleet Adult Rectal Enema -) 133 ml RC PRN PRN PRN Reason: CONSTIPATION CBC, BMP 07/15/18 07:00 07/15/18 07:00 Microbiology 07/12/18 14:28 Blood Culture - Preliminary Blood - Peripheral Venous NO GROWTH OBTAINED AFTER 96 HOURS, INCUBATION TO CONTINUE FOR 1 DAYS. 07/12/18 14:28 Blood Culture - Preliminary Blood - Peripheral Venous NO GROWTH OBTAINED AFTER 96 HOURS, INCUBATION TO CONTINUE FOR 1 DAYS. Physical Exam awake/ comfortable Lungs decreased at bases cvs- s1,s2 rrr Abd- soft,NT No edema neuro- alert/ awake PLAN overall looks better abx per i/d d/c in am ? d/c clinimix continue present care. daily oob - chair Physical Therapy. will follow. d/c planning ? If stable - anticipate tomorrow
[2018-07-17] MEDS: DOCUSATE SODIUM 100 MG CAPSULE (FP) PO SCH (21:30)
[2018-07-17] MEDS: ATORVASTATIN CA 10 MG TABLET (FP) PO SCH (21:30)
[2018-07-17] MEDS: guaiFENesin 200 MG/10 ML 10 ML UNIT-DOSE CUPS PO PRN (21:30)
[2018-07-18] MEDS: LEVOTHYROXINE NA 100 MCG TABLET (FP) PO SCH (06:09)
[2018-07-18] MEDS: INSULIN SLIDING SCALE (NOVOLOG) 1 VIAL SQ SCH ×3 (06:09→17:04)
[2018-07-18 07:34] LABS: BASO % 0.5 % (0-2.0); EOS % 0.6 % (0-4.5); HEMATOCRIT 37.7 % (32.4-45.2); HEMOGLOBIN 12.1 GM/dL (10.7-15.3); LYMPH % 11.6 % (8-40); MCH 29.9 pg (25.7-33.7); MCHC 32.2 g/dl (32.0-36.0); MEAN CELL VOLUME 92.9 fl (80-96); MEAN PLT VOLUME 7.1 fl (7.5-11.1); MONO % 6.9 % (3.8-10.2); NEUT % 80.4 % (42.8-82.8); PLATELET COUNT 321 K/MM3 (134-434); RBC 4.05 M/mm3 (3.60-5.2); RDW 15.2 % (11.6-15.6); WHITE BLOOD COUNT 11.3 K/mm3 (4.0-10.0)
[2018-07-18 07:51] LABS: ALBUMIN 2.5 g/dl (3.4-5.0); ALK PHOS 64 U/L (45-117); ANION GAP 7 MMOL/L (8-16); BILIRUBIN,TOTAL 0.2 mg/dL (0.2-1); BLOOD UREA NITROGEN 23 mg/dL (7-18); CALCIUM 8.6 mg/dL (8.5-10.1); CHLORIDE 115 mmol/L (98-107); CO2 23 mmol/L (21-32); CREATININE 0.8 mg/dL (0.55-1.3); GLUCOSE,RANDOM 153 mg/dL (74-106); POTASSIUM 3.6 mmol/L (3.5-5.1); SGOT/AST 22 U/L (15-37); SGPT/ALT 25 U/L (13-61); SODIUM 146 mmol/L (136-145); TOT PROT 5.4 g/dl (6.4-8.2)
[2018-07-18] MEDS ORDERED: cefTRIAXone SODIUM 1 GM VIAL ONE (10:08)
[2018-07-18] MEDS ORDERED: DEXTROSE 5%-WATER - 50 ML IVPB ONE (10:08)
[2018-07-18 10:31] LABS: ANISOCYTOSIS 1+; MACROCYTOSIS 1+; PLATELET ESTIMATE NORMAL
[2018-07-18] MEDS: CALCIUM 500MG/VIT-D 200 UNITS COMBO TABLET (FP) PO SCH ×2 (10:31→21:12)
[2018-07-18] MEDS: METOPROLOL TARTRATE 25 MG TABLET (FP) PO SCH ×2 (10:31→21:12)
[2018-07-18] MEDS: HEPARIN NA (PORCINE) 5,000 UNITS/ML 1ML VIAL SQ SCH ×2 (10:31→21:38)
[2018-07-18] MEDS: amLODIPine BESYLATE 5 MG TABLET (FP) PO SCH (10:31)
[2018-07-18] MEDS: CEFTRIAXONE 1 GM in DEXTROSE 5%-WATER - 50 ML IVPB SCH (10:32)
--- NOTE | 2018-07-18 11:29 | PN ---
Progress Note, [employer] - Note Progress Note: Selected Entries 07/17/18 07/17/18 07/17/18 02:00 10:00 11:40 Breakfast 75% Lunch Supper Temperature 98.2 F 97.9 F 07/17/18 07/17/18 07/17/18 15:01 19:06 23:00 Breakfast Lunch 50% Supper 50% Temperature 97.2 F L 98.9 F 07/18/18 07/18/18 07/18/18 03:00 07:00 09:00 Breakfast Lunch Supper Temperature 98.0 F 99.0 F 98 F Laboratory Tests 07/15/18 07/18/18 07:00 06:00 WBC 7.3 11.3 H MBS performed. No aspiration noted including thin liquids, but at risk. Placed on puree/nectar for conservative mgmt. Reported to be alert yesterday, verbal, tolerating diet well. Pt more SOB today and less interactive. REC: NPO, CXR? r/o aspiration? Urine?
--- NOTE | 2018-07-18 13:36 | PN ---
Progress Note (short form) - Note Progress Note: pt is drowsy but arousable was more awake yesterday not coughing while being fed S1 S2 RRR Tachycardia Lungs decreased Vital Signs - 24 hr 07/17/18 07/17/18 07/18/18 21:00 23:00 03:00 Temperature 98.9 F 98.0 F Pulse Rate 106 H 95 H Respiratory 20 20 20 Rate Blood Pressure 114/77 104/75 O2 Sat by Pulse 99 Oximetry (%) 07/18/18 07/18/18 07/18/18 07:00 09:00 14:31 Temperature 99.0 F 98 F 98.5 F Pulse Rate 94 H 108 H 103 H Respiratory 20 20 22 H Rate Blood Pressure 120/74 147/94 150/95 O2 Sat by Pulse 99 Oximetry (%) 07/18/18 18:00 Temperature 100.0 F H Pulse Rate 115 H Respiratory 22 H Rate Blood Pressure 155/101 H O2 Sat by Pulse Oximetry (%) Current Medications Generic Name Dose Route Start Last Admin Trade Name Freq PRN Reason Stop Dose Admin Acetaminophen 650 mg 07/12/18 13:42 07/13/18 00:01 Tylenol - PO 650 mg Q6H PRN Administration FEVER Acetaminophen 1,000 mg 07/13/18 16:41 07/18/18 18:22 Ofirmev Injection - IVPB 1,000 mg Q6H PRN Administration FEVER Albuterol/Ipratropium 1 amp 07/18/18 13:40 Duoneb - NEB Q6H PRN SHORTNESS OF BREATH Amlodipine Besylate 5 mg 07/11/18 18:45 07/18/18 10:31 Norvasc - PO 5 mg DAILY [facility] Administration Atorvastatin Calcium 10 mg 07/11/18 22:00 07/17/18 21:30 Lipitor - PO 10 mg HS [facility] Administration Calcium Carbonate/Cholecalciferol 1 tab 07/11/18 10:00 07/18/18 10:31 Os-Horacio 500+D - PO 1 tab BID [facility] Administration Docusate Sodium 100 mg 07/11/18 22:00 07/17/18 21:30 Colace - PO 100 mg HS [facility] Administration Fluticasone Propionate 1 spray 07/18/18 13:45 07/18/18 14:22 Flonase - NS 1 spray BID [facility] Administration Guaifenesin 10 ml 07/12/18 11:46 07/17/18 21:30 Robitussin - PO 10 ml Q4H PRN Administration COUGH Heparin Sodium (Porcine) 5,000 unit 07/11/18 10:00 07/18/18 10:31 Heparin - SQ 5,000 unit BID [facility] Administration Metronidazole 500 mg in 100 mls @ 100 mls/hr 07/12/18 11:45 07/18/18 17:02 Flagyl 500mg Premixed Ivpb - IVPB 100 mls/hr Q8H-IV [facility] Administration Amino Acids 1,000 mls @ 70 mls/hr 07/18/18 18:00 Clinimix - IV Q14H [facility] Insulin Aspart 1 vial 07/12/18 16:30 07/18/18 17:04 Novolog Vial Sliding Scale - SQ Not Given TIDAC [facility] Protocol Levothyroxine Sodium 100 mcg 07/11/18 07:00 07/18/18 06:09 Synthroid - PO 100 mcg DAILY@0700 [facility] Administration Metoprolol Tartrate 25 mg 07/11/18 11:30 07/18/18 10:31 Lopressor - PO 25 mg BID [facility] Administration Metoprolol Tartrate 5 mg 07/18/18 21:00 Lopressor Injection - IVPB Q6H-IV [facility] Sodium Phosphate 133 ml 07/11/18 00:15 Fleet Adult Rectal Enema - RC PRN PRN CONSTIPATION Abnormal Lab Results 07/18/18 07/18/18 07/18/18 06:00 06:00 18:00 WBC 11.3 H MPV 7.1 L Absolute Neuts (auto) 9.1 H Monocytes % (Manual) 3 L ABG pO2 at Pt Temp Sodium 146 H Chloride 115 H Anion Gap 7 L BUN 23 H Random Glucose 153 H Total Protein 5.4 L Albumin 2.5 L Urine Protein 1+ H Urine Ketones Trace H Ur Leukocyte Esterase 1+ H 07/18/18 19:18 WBC MPV Absolute Neuts (auto) Monocytes % (Manual) ABG pO2 at Pt Temp 126.0 H Sodium Chloride Anion Gap BUN Random Glucose Total Protein Albumin Urine Protein Urine Ketones Ur Leukocyte Esterase Laboratory Results - last 24 hr 07/18/18 07/18/18 07/18/18 06:00 06:00 06:08 WBC 11.3 H RBC 4.05 Hgb 12.1 Hct 37.7 MCV 92.9 MCH 29.9 MCHC 32.2 RDW 15.2 Plt Count 321 D MPV 7.1 L Absolute Neuts (auto) 9.1 H Neutrophils % 80.4 Neutrophils % (Manual) 79.6 Band Neutrophils % 0.0 Lymphocytes % 11.6 Lymphocytes % (Manual) 11.2 Monocytes % 6.9 Monocytes % (Manual) 3 L Eosinophils % 0.6 Eosinophils % (Manual) 2.1 Basophils % 0.5 Basophils % (Manual) 0.0 Myelocytes % (Man) 2 Promyelocytes % (Man) 0 Blast Cells % (Manual) 0 Nucleated RBC % 0 Metamyelocytes 0 Hypochromia 0 Platelet Estimate Normal Polychromasia 0 Poikilocytosis 0 Anisocytosis 1+ Microcytosis 0 Macrocytosis 1+ Puncture Site ABG pH ABG pCO2 at Pt Temp ABG pO2 at Pt Temp ABG HCO3 ABG O2 Sat (Measured) ABG O2 Content ABG Base Excess Preston Test Oxygen Flow Rate Sodium 146 H Potassium 3.6 Chloride 115 H Carbon Dioxide 23 Anion Gap 7 L BUN 23 H Creatinine 0.8 Creat Clearance w eGFR > 60 POC Glucometer 138 Random Glucose 153 H Calcium 8.6 Total Bilirubin 0.2 AST 22 ALT 25 Alkaline Phosphatase 64 Total Protein 5.4 L Albumin 2.5 L Urine Color Urine Appearance Urine pH Ur Specific [place] Urine Protein Urine Glucose (UA) Urine Ketones Urine Blood Urine Nitrite Urine Bilirubin Urine Urobilinogen Ur Leukocyte Esterase Urine WBC (Auto) Urine RBC (Auto) Ur Epithelial Cells Urine Mucus 07/18/18 07/18/18 07/18/18 12:01 17:03 18:00 WBC RBC Hgb Hct MCV MCH MCHC RDW Plt Count MPV Absolute Neuts (auto) Neutrophils % Neutrophils % (Manual) Band Neutrophils % Lymphocytes % Lymphocytes % (Manual) Monocytes % Monocytes % (Manual) Eosinophils % Eosinophils % (Manual) Basophils % Basophils % (Manual) Myelocytes % (Man) Promyelocytes % (Man) Blast Cells % (Manual) Nucleated RBC % Metamyelocytes Hypochromia Platelet Estimate Polychromasia Poikilocytosis Anisocytosis Microcytosis Macrocytosis Puncture Site ABG pH ABG pCO2 at Pt Temp ABG pO2 at Pt Temp ABG HCO3 ABG O2 Sat (Measured) ABG O2 Content ABG Base Excess Preston Test Oxygen Flow Rate Sodium Potassium Chloride Carbon Dioxide Anion Gap BUN Creatinine Creat Clearance w eGFR POC Glucometer 156 129 Random Glucose Calcium Total Bilirubin AST ALT Alkaline Phosphatase Total Protein Albumin Urine Color Kristy Urine Appearance Clear Urine pH 5.0 Ur Specific [place] 1.027 Urine Protein 1+ H Urine Glucose (UA) Negative Urine Ketones Trace H Urine Blood Negative Urine Nitrite Negative Urine Bilirubin Negative Urine Urobilinogen Negative Ur Leukocyte Esterase 1+ H Urine WBC (Auto) 1 Urine RBC (Auto) 2 Ur Epithelial Cells Rare Urine Mucus Rare 07/18/18 19:18 WBC RBC Hgb Hct MCV MCH MCHC RDW Plt Count MPV Absolute Neuts (auto) Neutrophils % Neutrophils % (Manual) Band Neutrophils % Lymphocytes % Lymphocytes % (Manual) Monocytes % Monocytes % (Manual) Eosinophils % Eosinophils % (Manual) Basophils % Basophils % (Manual) Myelocytes % (Man) Promyelocytes % (Man) Blast Cells % (Manual) Nucleated RBC % Metamyelocytes Hypochromia Platelet Estimate Polychromasia Poikilocytosis Anisocytosis Microcytosis Macrocytosis Puncture Site Right radial ABG pH 7.38 ABG pCO2 at Pt Temp 40.6 ABG pO2 at Pt Temp 126.0 H ABG HCO3 23.5 ABG O2 Sat (Measured) 97.9 ABG O2 Content No Result Required. ABG Base Excess -1.0 Preston Test Positive Oxygen Flow Rate Yes Sodium Potassium Chloride Carbon Dioxide Anion Gap BUN Creatinine Creat Clearance w eGFR POC Glucometer Random Glucose Calcium Total Bilirubin AST ALT Alkaline Phosphatase Total Protein Albumin Urine Color Urine Appearance Urine pH Ur Specific [place] Urine Protein Urine Glucose (UA) Urine Ketones Urine Blood Urine Nitrite Urine Bilirubin Urine Urobilinogen Ur Leukocyte Esterase Urine WBC (Auto) Urine RBC (Auto) Ur Epithelial Cells Urine Mucus PLAN CXR noted no infiltrates ABG noted humidified O2 on iv antibiotics palliative care clnimix keep NPO spoke with swallow therapist Problem List - Problems (1) Acute metabolic encephalopathy Code(s): G93.41 - METABOLIC ENCEPHALOPATHY (2) Altered mental status Code(s): R41.82 - ALTERED MENTAL STATUS, UNSPECIFIED Qualifiers: Altered mental status type: unspecified Qualified Code(s): R41.82 - Altered mental status, unspecified (3) Urinary tract infection Code(s): N39.0 - URINARY TRACT INFECTION, SITE NOT SPECIFIED Qualifiers: Urinary tract infection type: site unspecified Hematuria presence: without hematuria Qualified Code(s): N39.0 - Urinary tract infection, site not specified (4) Anxiety Code(s): F41.9 - ANXIETY DISORDER, UNSPECIFIED
[2018-07-18] MEDS: FLUTICASONE PROP 0.05% 16 GM NASAL SPRAY NS SCH ×2 (14:22→21:37)
[2018-07-18] MEDS: ACETAMINOPHEN 1000 MG/100 ML VIAL (NON FORMULARY) IVPB PRN (18:22)
[2018-07-18 19:09] LABS: URINE APPEARANCE CLEAR; URINE BILIRUBIN NEGATIVE (<2.0 mg/dL); URINE COLOR AMBER; URINE GLUCOSE (UA) NEGATIVE (NEGATIVE); URINE KETONE TRACE (NEGATIVE); URINE LEUK ESTERASE 1+ (NEGATIVE); URINE NITRITE NEGATIVE (NEGATIVE); URINE PROTEIN 1+ (NEGATIVE); URINE UROBILINOGEN NEGATIVE mg/dL (0.2-1.0)
[2018-07-18 19:14] LABS: EPI CELLS RARE /HPF (FEW); URINE MUCUS RARE
[2018-07-18 19:27] LABS: ARTERIAL BLOOD GAS PCO2 40.6 mmHg (35-45); ARTERIAL BLOOD GAS pH 7.38 (7.35-7.45)
[2018-07-18 19:28] LABS: ALLENS TEST POSITIVE; ARTERIAL BLD GAS O2 SATURATION 97.9 % (90-98.9)
[2018-07-18] MEDS: ATORVASTATIN CA 10 MG TABLET (FP) PO SCH (21:12)
[2018-07-18] MEDS: DOCUSATE SODIUM 100 MG CAPSULE (FP) PO SCH (21:12)
[2018-07-18] MEDS ORDERED: PT OWN MED DRAWER 7, Y5N ONE (21:28)
[2018-07-18] MEDS: ALBUTEROL SO4 2.5/IPRATROPIUM 0.5 INH SOL 3 ML VIAL.NEB. NEB PRN (21:29)
[2018-07-18] MEDS: AMINO ACIDS 4.25%/D5W 1,000 ML IV SCH (21:37)
[2018-07-19] MEDS: ACETAMINOPHEN 1000 MG/100 ML VIAL (NON FORMULARY) IVPB PRN (00:49)
[2018-07-19] MEDS: METOPROLOL TARTRATE 5 MG/5 ML VIAL IVPB SCH ×6 (00:50→21:56)
[2018-07-19] MEDS: INSULIN SLIDING SCALE (NOVOLOG) 1 VIAL SQ SCH ×3 (06:25→16:44)
[2018-07-19] MEDS: LEVOTHYROXINE NA 100 MCG TABLET (FP) PO SCH (06:41)
[2018-07-19 07:29] LABS: HEMATOCRIT 36.7 % (32.4-45.2); HEMOGLOBIN 11.9 GM/dL (10.7-15.3); MCH 30.1 pg (25.7-33.7); MCHC 32.4 g/dl (32.0-36.0); MEAN CELL VOLUME 92.9 fl (80-96); PLATELET COUNT 322 K/MM3 (134-434); RBC 3.95 M/mm3 (3.60-5.2); RDW 14.9 % (11.6-15.6); WHITE BLOOD COUNT 9.7 K/mm3 (4.0-10.0)
[2018-07-19 07:59] LABS: ALBUMIN 2.4 g/dl (3.4-5.0); ALK PHOS 61 U/L (45-117); ANION GAP 6 MMOL/L (8-16); BILIRUBIN,TOTAL 0.2 mg/dL (0.2-1); BLOOD UREA NITROGEN 24 mg/dL (7-18); CHLORIDE 113 mmol/L (98-107); CO2 23 mmol/L (21-32); CREATININE 0.7 mg/dL (0.55-1.3); GLUCOSE,RANDOM 194 mg/dL (74-106); POTASSIUM 3.3 mmol/L (3.5-5.1); SGOT/AST 20 U/L (15-37); SGPT/ALT 23 U/L (13-61); SODIUM 142 mmol/L (136-145); TOT PROT 5.3 g/dl (6.4-8.2)
[2018-07-19] MEDS: ALBUTEROL SO4 2.5/IPRATROPIUM 0.5 INH SOL 3 ML VIAL.NEB. NEB PRN (08:09)
[2018-07-19] MEDS: AMINO ACIDS 4.25%/D5W 1,000 ML IV SCH ×3 (08:23→22:00)
[2018-07-19] MEDS ORDERED: PT OWN MED DRAWER 7, Y5N ONE ×3 (11:05→21:38)
[2018-07-19] MEDS: amLODIPine BESYLATE 5 MG TABLET (FP) PO SCH (11:08)
[2018-07-19] MEDS: HEPARIN NA (PORCINE) 5,000 UNITS/ML 1ML VIAL SQ SCH ×2 (11:08→21:57)
[2018-07-19] MEDS: FLUTICASONE PROP 0.05% 16 GM NASAL SPRAY NS SCH ×2 (11:08→21:56)
[2018-07-19] MEDS: CALCIUM 500MG/VIT-D 200 UNITS COMBO TABLET (FP) PO SCH ×2 (11:09→21:30)
--- NOTE | 2018-07-19 12:22 | PN ---
Progress Note (short form) - Note Progress Note: pt is more awake today NPO Vital Signs - 24 hr 07/18/18 07/18/18 07/18/18 14:31 18:00 21:00 Temperature 98.5 F 100.0 F H Pulse Rate 103 H 115 H Respiratory 22 H 22 H Rate Blood Pressure 150/95 155/101 H O2 Sat by Pulse 99 Oximetry (%) 07/18/18 07/19/18 07/19/18 22:00 00:50 06:00 Temperature 98.5 F 99.5 F Pulse Rate 103 H 105 H 124 H Respiratory 22 H 22 H Rate Blood Pressure 100/60 161/100 165/89 O2 Sat by Pulse Oximetry (%) 07/19/18 07/19/18 07/19/18 06:25 10:45 11:09 Temperature 99 F Pulse Rate 124 H 107 H 107 H Respiratory 22 H Rate Blood Pressure 165/89 148/87 148/87 O2 Sat by Pulse Oximetry (%) Current Medications Generic Name Dose Route Start Last Admin Trade Name Freq PRN Reason Stop Dose Admin Acetaminophen 650 mg 07/12/18 13:42 07/13/18 00:01 Tylenol - PO 650 mg Q6H PRN Administration FEVER Acetaminophen 1,000 mg 07/13/18 16:41 07/19/18 00:49 Ofirmev Injection - IVPB 1,000 mg Q6H PRN Administration FEVER Albuterol/Ipratropium 1 amp 07/18/18 13:40 07/19/18 08:09 Duoneb - NEB 1 amp Q6H PRN Administration SHORTNESS OF BREATH Amlodipine Besylate 5 mg 07/11/18 18:45 07/19/18 11:08 Norvasc - PO Not Given DAILY [facility] Atorvastatin Calcium 10 mg 07/11/18 22:00 07/18/18 21:12 Lipitor - PO Not Given HS [facility] Calcium Carbonate/Cholecalciferol 1 tab 07/11/18 10:00 07/19/18 11:09 Os-Horacio 500+D - PO Not Given BID [facility] Docusate Sodium 100 mg 07/11/18 22:00 07/18/18 21:12 Colace - PO Not Given HS [facility] Fluticasone Propionate 1 spray 07/18/18 13:45 07/19/18 11:08 Flonase - NS 1 spray BID [facility] Administration Guaifenesin 10 ml 07/12/18 11:46 07/17/18 21:30 Robitussin - PO 10 ml Q4H PRN Administration COUGH Heparin Sodium (Porcine) 5,000 unit 07/11/18 10:00 07/19/18 11:08 Heparin - SQ 5,000 unit BID [facility] Administration Amino Acids 1,000 mls @ 70 mls/hr 07/18/18 18:00 07/19/18 12:00 Clinimix - IV 70 mls/hr Q14H [facility] Administration Potassium Chloride 10 meq in 100 mls @ 100 mls/hr 07/19/18 12:30 Potassium Chloride 10 Meq Premix Ivpb - IVPB 07/19/18 14:29 Q60M [facility] Insulin Aspart 1 vial 07/12/18 16:30 07/19/18 11:23 Novolog Vial Sliding Scale - SQ 2 units TIDAC [facility] Administration Protocol Levothyroxine Sodium 100 mcg 07/11/18 07:00 07/19/18 06:41 Synthroid - PO Not Given DAILY@0700 [facility] Metoprolol Tartrate 5 mg 07/19/18 05:45 07/19/18 11:09 Lopressor Injection - IVPB 5 mg Q6H-IV [facility] Administration Sodium Phosphate 133 ml 07/11/18 00:15 Fleet Adult Rectal Enema - RC PRN PRN CONSTIPATION Laboratory Results - last 24 hr 07/18/18 07/18/18 07/18/18 12:01 17:03 18:00 WBC RBC Hgb Hct MCV MCH MCHC RDW Plt Count MPV Puncture Site ABG pH ABG pCO2 at Pt Temp ABG pO2 at Pt Temp ABG HCO3 ABG O2 Sat (Measured) ABG O2 Content ABG Base Excess [place] Test Oxygen Flow Rate Sodium Potassium Chloride Carbon Dioxide Anion Gap BUN Creatinine Creat Clearance w eGFR POC Glucometer 156 129 Random Glucose Calcium Total Bilirubin AST ALT Alkaline Phosphatase Total Protein Albumin Urine Color Kristy Urine Appearance Clear Urine pH 5.0 Ur Specific [place] 1.027 Urine Protein 1+ H Urine Glucose (UA) Negative Urine Ketones Trace H Urine Blood Negative Urine Nitrite Negative Urine Bilirubin Negative Urine Urobilinogen Negative Ur Leukocyte Esterase 1+ H Urine WBC (Auto) 1 Urine RBC (Auto) 2 Ur Epithelial Cells Rare Urine Mucus Rare 07/18/18 07/19/18 07/19/18 19:18 06:23 06:30 WBC 9.7 RBC 3.95 Hgb 11.9 Hct 36.7 MCV 92.9 MCH 30.1 MCHC 32.4 RDW 14.9 Plt Count 322 MPV 7.0 L Puncture Site Right radial ABG pH 7.38 ABG pCO2 at Pt Temp 40.6 ABG pO2 at Pt Temp 126.0 H ABG HCO3 23.5 ABG O2 Sat (Measured) 97.9 ABG O2 Content No Result Required. ABG Base Excess -1.0 [place] Test Positive Oxygen Flow Rate Yes Sodium Potassium Chloride Carbon Dioxide Anion Gap BUN Creatinine Creat Clearance w eGFR POC Glucometer 155 Random Glucose Calcium Total Bilirubin AST ALT Alkaline Phosphatase Total Protein Albumin Urine Color Urine Appearance Urine pH Ur Specific [place] Urine Protein Urine Glucose (UA) Urine Ketones Urine Blood Urine Nitrite Urine Bilirubin Urine Urobilinogen Ur Leukocyte Esterase Urine WBC (Auto) Urine RBC (Auto) Ur Epithelial Cells Urine Mucus 07/19/18 07/19/18 06:30 11:21 WBC RBC Hgb Hct MCV MCH MCHC RDW Plt Count MPV Puncture Site ABG pH ABG pCO2 at Pt Temp ABG pO2 at Pt Temp ABG HCO3 ABG O2 Sat (Measured) ABG O2 Content ABG Base Excess [place] Test Oxygen Flow Rate Sodium 142 Potassium 3.3 L Chloride 113 H Carbon Dioxide 23 Anion Gap 6 L BUN 24 H Creatinine 0.7 Creat Clearance w eGFR > 60 POC Glucometer 161 Random Glucose 194 H Calcium 8.0 L Total Bilirubin 0.2 AST 20 ALT 23 Alkaline Phosphatase 61 Total Protein 5.3 L Albumin 2.4 L Urine Color Urine Appearance Urine pH Ur Specific [place] Urine Protein Urine Glucose (UA) Urine Ketones Urine Blood Urine Nitrite Urine Bilirubin Urine Urobilinogen Ur Leukocyte Esterase Urine WBC (Auto) Urine RBC (Auto) Ur Epithelial Cells Urine Mucus S1 S2 RRR lungs decreased Abd- soft, NT rt arm edema no leg edema PLAN CXR noted no infiltrates ABG noted humidified O2 on iv antibiotics consider palliative care reculture clnimix keep NPO today slightly improved Problem List - Problems (1) Acute metabolic encephalopathy Code(s): G93.41 - METABOLIC ENCEPHALOPATHY (2) Altered mental status Code(s): R41.82 - ALTERED MENTAL STATUS, UNSPECIFIED Qualifiers: Altered mental status type: unspecified Qualified Code(s): R41.82 - Altered mental status, unspecified (3) Urinary tract infection Code(s): N39.0 - URINARY TRACT INFECTION, SITE NOT SPECIFIED Qualifiers: Urinary tract infection type: site unspecified Hematuria presence: without hematuria Qualified Code(s): N39.0 - Urinary tract infection, site not specified (4) Anxiety Code(s): F41.9 - ANXIETY DISORDER, UNSPECIFIED
[2018-07-19] MEDS ORDERED: CEFTRIAXONE 1 GM in DEXTROSE 5%-WATER - 50 ML IVPB SCH (13:00)
[2018-07-19] MEDS ORDERED: cefTRIAXone SODIUM 1 GM VIAL ONE (13:59)
[2018-07-19] MEDS ORDERED: DEXTROSE 5%-WATER - 50 ML IVPB ONE (13:59)
[2018-07-19] MEDS: CEFTRIAXONE 1 GM in DEXTROSE 5%-WATER - 50 ML IVPB SCH (14:41)
[2018-07-19] MEDS: KCL 10 MEQ IVPB 10 MEQ/100 ML INFUS.BAG IVPB SCH ×2 (15:44→16:43)
--- NOTE | 2018-07-19 16:01 | PN ---
Progress Note, Physician History of Present Illness: Awake but lethargic Congestion reported earlier Low grade temp Breathing non-labored Urine c/s Klebsiella - Current Medication List Current Medications: Active Medications Acetaminophen (Tylenol -) 650 mg PO Q6H PRN PRN Reason: FEVER Last Admin: 07/13/18 00:01 Dose: 650 mg Acetaminophen (Ofirmev Injection -) 1,000 mg IVPB Q6H PRN PRN Reason: FEVER Last Admin: 07/19/18 00:49 Dose: 1,000 mg Albuterol/Ipratropium (Duoneb -) 1 amp NEB Q6H PRN PRN Reason: SHORTNESS OF BREATH Last Admin: 07/19/18 08:09 Dose: 1 amp Amlodipine Besylate (Norvasc -) 5 mg PO DAILY [facility] Last Admin: 07/19/18 11:08 Dose: Not Given Atorvastatin Calcium (Lipitor -) 10 mg PO HS [facility] Last Admin: 07/18/18 21:12 Dose: Not Given Calcium Carbonate/Cholecalciferol (Os-Horacio 500+D -) 1 tab PO BID [facility] Last Admin: 07/19/18 11:09 Dose: Not Given Docusate Sodium (Colace -) 100 mg PO HS [facility] Last Admin: 07/18/18 21:12 Dose: Not Given Fluticasone Propionate (Flonase -) 1 spray NS BID [facility] Last Admin: 07/19/18 11:08 Dose: 1 spray Guaifenesin (Robitussin -) 10 ml PO Q4H PRN PRN Reason: COUGH Last Admin: 07/17/18 21:30 Dose: 10 ml Heparin Sodium (Porcine) (Heparin -) 5,000 unit SQ BID [facility] Last Admin: 07/19/18 11:08 Dose: 5,000 unit Amino Acids (Clinimix -) 1,000 mls @ 70 mls/hr IV Q14H [facility] Last Admin: 07/19/18 12:00 Dose: 70 mls/hr Fluconazole (Diflucan 100 Mg/D5w Premixed Ivpb -) 50 mls @ 50 mls/hr IVPB DAILY [facility] Ceftriaxone Sodium 1 gm/ (Dextrose) 50 mls @ 100 mls/hr IVPB DAILY [facility] Last Admin: 07/19/18 14:41 Dose: 100 mls/hr Ceftriaxone Sodium 1 gm/ (Dextrose) 50 mls @ 100 mls/hr IVPB DAILY [facility] Last Admin: 07/19/18 14:42 Dose: Not Given Insulin Aspart (Novolog Vial Sliding Scale -) 1 vial SQ TIDAC [facility]; Protocol Last Admin: 07/19/18 11:23 Dose: 2 units Levothyroxine Sodium (Synthroid -) 100 mcg PO DAILY@0700 [facility] Last Admin: 07/19/18 06:41 Dose: Not Given Metoprolol Tartrate (Lopressor Injection -) 5 mg IVPB Q6H-IV [facility] Last Admin: 07/19/18 15:25 Dose: 5 mg Sodium Phosphate (Fleet Adult Rectal Enema -) 133 ml RC PRN PRN PRN Reason: CONSTIPATION - Objective Vital Signs: Vital Signs Temperature 99.3 F 07/19/18 15:01 Pulse Rate 114 H 07/19/18 15:25 Respiratory Rate 20 07/19/18 15:01 Blood Pressure 165/114 H 07/19/18 15:25 O2 Sat by Pulse Oximetry (%) 99 07/18/18 21:00 Constitutional: Yes: No Distress, Thin Cardiovascular: Yes: Regular Rate and Rhythm, S1, S2 Respiratory: Yes: Rhonchi Gastrointestinal: Yes: Normal Bowel Sounds, Soft Edema: No Labs: CBC, BMP 07/19/18 06:30 07/19/18 06:30 INR, PTT INR 1.01 (0.83-1.09) 07/10/18 22:20 Assessment/Plan Probable Aspiration pneumonia UTI Toxic metabolic encephalopathy Azotemia Continue ceftriaxone/ flagyl
[2018-07-19] MEDS: FLUCONAZOLE 100 MG/D5W 50 ML IVPB SCH (16:16)
--- NOTE | 2018-07-19 16:27 | PN ---
Progress Note, [employer] - Note Progress Note: Selected Entries 07/18/18 07/18/18 07/18/18 03:00 07:00 09:00 Breakfast Lunch Temperature 98.0 F 99.0 F 98 F 07/18/18 07/18/18 07/18/18 09:49 14:31 18:00 Breakfast 25% Lunch NPO Temperature 98.5 F 100.0 F H 07/18/18 07/19/18 07/19/18 22:00 06:00 10:45 Breakfast Lunch Temperature 98.5 F 99.5 F 99 F 07/19/18 07/19/18 07/19/18 11:37 13:24 15:01 Breakfast Lunch NPO Temperature 99.7 F H 99.3 F Laboratory Tests 07/18/18 07/19/18 06:00 06:30 WBC 11.3 H 9.7 More alert today, verbal again, and improved respiration.. MBS 07/16 was quite functional without aspiration on puree, nectar or thin liquids. Pt opvertly tolerated diet. However, RR increased, pt was febrile, and lethargic yesterday. ABG/CXR noted.Improved/NPO. Urine pending Aspiration? UTI? What are pt's end of life wishes? Consider Palliative care. Trial of puree/nectar again when fully alert, OOB if possible. Monitor pulmonary status.
[2018-07-19] MEDS: DOCUSATE SODIUM 100 MG CAPSULE (FP) PO SCH (21:30)
[2018-07-19] MEDS: ATORVASTATIN CA 10 MG TABLET (FP) PO SCH (21:30)
[2018-07-20] MEDS: METOPROLOL TARTRATE 5 MG/5 ML VIAL IVPB SCH ×4 (02:07→23:35)
[2018-07-20] MEDS: LEVOTHYROXINE NA 100 MCG TABLET (FP) PO SCH (06:27)
[2018-07-20] MEDS: INSULIN SLIDING SCALE (NOVOLOG) 1 VIAL SQ SCH ×3 (06:42→16:36)
[2018-07-20] MEDS: AMINO ACIDS 4.25%/D5W 1,000 ML IV SCH ×2 (07:53→12:32)
[2018-07-20 07:55] LABS: HEMATOCRIT 37.3 % (32.4-45.2); HEMOGLOBIN 12.2 GM/dL (10.7-15.3); MCH 30.1 pg (25.7-33.7); MCHC 32.7 g/dl (32.0-36.0); MEAN CELL VOLUME 92.1 fl (80-96); MEAN PLT VOLUME 7.2 fl (7.5-11.1); PLATELET COUNT 326 K/MM3 (134-434); RBC 4.05 M/mm3 (3.60-5.2); RDW 14.9 % (11.6-15.6); WHITE BLOOD COUNT 11.3 K/mm3 (4.0-10.0)
[2018-07-20 08:18] LABS: ANION GAP 9 MMOL/L (8-16); BLOOD UREA NITROGEN 21 mg/dL (7-18); CALCIUM 7.8 mg/dL (8.5-10.1); CHLORIDE 110 mmol/L (98-107); CO2 23 mmol/L (21-32); CREATININE 0.6 mg/dL (0.55-1.3); GLUCOSE,RANDOM 167 mg/dL (74-106); POTASSIUM 3.4 mmol/L (3.5-5.1); SODIUM 142 mmol/L (136-145)
[2018-07-20] MEDS ORDERED: PT OWN MED DRAWER 7, Y5N ONE (09:42)
[2018-07-20] MEDS ORDERED: cefTRIAXone SODIUM 1 GM VIAL ONE (09:42)
[2018-07-20] MEDS ORDERED: DEXTROSE 5%-WATER - 50 ML IVPB ONE (09:42)
[2018-07-20] MEDS: CEFTRIAXONE 1 GM in DEXTROSE 5%-WATER - 50 ML IVPB SCH (09:45)
[2018-07-20] MEDS: HEPARIN NA (PORCINE) 5,000 UNITS/ML 1ML VIAL SQ SCH ×2 (09:45→23:34)
[2018-07-20] MEDS: CALCIUM 500MG/VIT-D 200 UNITS COMBO TABLET (FP) PO SCH ×2 (09:45→23:34)
[2018-07-20] MEDS: amLODIPine BESYLATE 5 MG TABLET (FP) PO SCH (09:45)
[2018-07-20] MEDS: FLUTICASONE PROP 0.05% 16 GM NASAL SPRAY NS SCH ×2 (10:01→23:43)
[2018-07-20] MEDS: FLUCONAZOLE 100 MG/D5W 50 ML IVPB SCH (10:53)
--- NOTE | 2018-07-20 11:13 | PN ---
Progress Note, [employer] MACHINE OPERATOR - Note Progress Note: Selected Entries 07/19/18 07/19/18 07/19/18 06:00 10:45 13:24 Supper Temperature 99.5 F 99 F 99.7 F H 07/19/18 07/19/18 07/19/18 15:01 16:30 18:00 Supper NPO Temperature 99.3 F 98.9 F 98.9 F 07/19/18 07/20/18 07/20/18 21:29 02:00 06:00 Supper Temperature 98.5 F 98.7 F 97.9 F Laboratory Tests 07/19/18 07/20/18 06:30 06:55 WBC 9.7 11.3 H Looking better, verbal. Case reviewed with PMD. Trial of PO diet again Dysphagia puree, nectar thick liquid, Magic cup. Ensure pudding. HOB elevated for meals and for atleast 1 hour after meals. Monitor tolerance
[2018-07-20] MEDS ORDERED: POTASSIUM CHLORIDE ORAL LIQUID 20 MEQ/15 ML PO ONE (12:13)
--- NOTE | 2018-07-20 12:18 | PN ---
Progress Note (short form) - Note Progress Note: pt seen/ examined chart reviewed events noted awake/ comfortable today afebrile Vital Signs Temp 97.9 F 07/20/18 06:00 Pulse 94 H 07/20/18 09:44 Resp 20 07/20/18 06:00 BP 150/88 07/20/18 09:44 Pulse Ox 98 07/19/18 21:00 Intake & Output 07/19/18 07/20/18 07/20/18 23:59 11:59 23:59 Intake Total 1440 900 Balance 1440 900 Intake: IV 840 700 clinimix @70 840 700 IVPB 600 200 Oral 0 Other: Voiding Method Incontinent # Unmeasured Voids Straight Cath 2 Bowel Movement Yes Active Medications Acetaminophen (Tylenol -) 650 mg PO Q6H PRN PRN Reason: FEVER Last Admin: 07/13/18 00:01 Dose: 650 mg Acetaminophen (Ofirmev Injection -) 1,000 mg IVPB Q6H PRN PRN Reason: FEVER Last Admin: 07/19/18 00:49 Dose: 1,000 mg Albuterol/Ipratropium (Duoneb -) 1 amp NEB Q6H PRN PRN Reason: SHORTNESS OF BREATH Last Admin: 07/19/18 08:09 Dose: 1 amp Amlodipine Besylate (Norvasc -) 5 mg PO DAILY [facility] Last Admin: 07/20/18 09:45 Dose: 5 mg Atorvastatin Calcium (Lipitor -) 10 mg PO HS [facility] Last Admin: 07/19/18 21:30 Dose: Not Given Calcium Carbonate/Cholecalciferol (Os-Horacio 500+D -) 1 tab PO BID [facility] Last Admin: 07/20/18 09:45 Dose: 1 tab Docusate Sodium (Colace -) 100 mg PO HS [facility] Last Admin: 07/19/18 21:30 Dose: Not Given Fluticasone Propionate (Flonase -) 1 spray NS BID [facility] Last Admin: 07/20/18 10:01 Dose: 1 spray Guaifenesin (Robitussin -) 10 ml PO Q4H PRN PRN Reason: COUGH Last Admin: 07/17/18 21:30 Dose: 10 ml Heparin Sodium (Porcine) (Heparin -) 5,000 unit SQ BID [facility] Last Admin: 07/20/18 09:45 Dose: 5,000 unit Amino Acids (Clinimix -) 1,000 mls @ 70 mls/hr IV Q14H [facility] Last Admin: 07/20/18 07:53 Dose: 70 mls/hr Fluconazole (Diflucan 100 Mg/D5w Premixed Ivpb -) 50 mls @ 50 mls/hr IVPB DAILY [facility] Last Admin: 07/20/18 10:53 Dose: 50 mls/hr Ceftriaxone Sodium 1 gm/ (Dextrose) 50 mls @ 100 mls/hr IVPB DAILY [facility] Last Admin: 07/20/18 09:45 Dose: 100 mls/hr Insulin Aspart (Novolog Vial Sliding Scale -) 1 vial SQ TIDAC [facility]; Protocol Last Admin: 07/20/18 12:05 Dose: Not Given Levothyroxine Sodium (Synthroid -) 100 mcg PO DAILY@0700 [facility] Last Admin: 07/20/18 06:27 Dose: Not Given Metoprolol Tartrate (Lopressor Injection -) 5 mg IVPB Q6H-IV [facility] Last Admin: 07/20/18 09:44 Dose: 5 mg Sodium Phosphate (Fleet Adult Rectal Enema -) 133 ml RC PRN PRN PRN Reason: CONSTIPATION CBC, BMP 07/20/18 06:55 07/20/18 06:55 Physical Exam awake/ comfortable Lungs decreased at bases cvs- s1,s2 rrr Abd- soft,NT No edema neuro- alert/ awake PLAN overall looks better again abx per i/d clinimix continue present care. daily oob - chair Physical Therapy. discussed with Danna Cope today again Will start on diet again-- Dysphagia will follow. will consult palliative care also Problem List - Problems (1) Acute metabolic encephalopathy Code(s): G93.41 - METABOLIC ENCEPHALOPATHY (2) Dementia Code(s): F03.90 - UNSPECIFIED DEMENTIA WITHOUT BEHAVIORAL DISTURBANCE (3) Urinary tract infection Code(s): N39.0 - URINARY TRACT INFECTION, SITE NOT SPECIFIED Qualifiers: Urinary tract infection type: site unspecified Hematuria presence: without hematuria Qualified Code(s): N39.0 - Urinary tract infection, site not specified
[2018-07-20] MEDS: ALBUTEROL SO4 2.5/IPRATROPIUM 0.5 INH SOL 3 ML VIAL.NEB. NEB PRN (20:35)
[2018-07-20] MEDS: DOCUSATE SODIUM 100 MG CAPSULE (FP) PO SCH (23:26)
[2018-07-20] MEDS: ATORVASTATIN CA 10 MG TABLET (FP) PO SCH (23:34)
[2018-07-21] MEDS: AMINO ACIDS 4.25%/D5W 1,000 ML IV SCH ×3 (01:32→23:26)
[2018-07-21] MEDS: METOPROLOL TARTRATE 5 MG/5 ML VIAL IVPB SCH ×4 (04:25→21:19)
[2018-07-21] MEDS: LEVOTHYROXINE NA 100 MCG TABLET (FP) PO SCH (06:12)
[2018-07-21] MEDS: INSULIN SLIDING SCALE (NOVOLOG) 1 VIAL SQ SCH ×3 (06:15→17:22)
[2018-07-21 07:29] LABS: BASO % 0.7 % (0-2.0); EOS % 0.6 % (0-4.5); HEMATOCRIT 38.9 % (32.4-45.2); HEMOGLOBIN 13.7 GM/dL (10.7-15.3); LYMPH % 15.8 % (8-40); MCH 32.3 pg (25.7-33.7); MCHC 35.3 g/dl (32.0-36.0); MEAN CELL VOLUME 91.5 fl (80-96); MEAN PLT VOLUME 7.1 fl (7.5-11.1); MONO % 6.1 % (3.8-10.2); NEUT % 76.8 % (42.8-82.8); PLATELET COUNT 343 K/MM3 (134-434); RBC 4.25 M/mm3 (3.60-5.2); WHITE BLOOD COUNT 10.1 K/mm3 (4.0-10.0)
[2018-07-21 08:37] LABS: ALBUMIN 2.9 g/dl (3.4-5.0); ALK PHOS 62 U/L (45-117); ANION GAP 8 MMOL/L (8-16); BILIRUBIN,TOTAL 0.3 mg/dL (0.2-1); BLOOD UREA NITROGEN 22 mg/dL (7-18); CALCIUM 8.8 mg/dL (8.5-10.1); CHLORIDE 105 mmol/L (98-107); CO2 26 mmol/L (21-32); CREATININE 0.6 mg/dL (0.55-1.3); GLUCOSE,RANDOM 138 mg/dL (74-106); POTASSIUM 3.6 mmol/L (3.5-5.1); SGOT/AST 25 U/L (15-37); SGPT/ALT 22 U/L (13-61); SODIUM 138 mmol/L (136-145); TOT PROT 6.1 g/dl (6.4-8.2)
[2018-07-21] MEDS ORDERED: DEXTROSE 5%-WATER - 50 ML IVPB ONE (09:35)
[2018-07-21] MEDS ORDERED: PT OWN MED DRAWER 7, Y5N ONE (09:35)
[2018-07-21] MEDS ORDERED: cefTRIAXone SODIUM 1 GM VIAL ONE (09:35)
[2018-07-21] MEDS: CEFTRIAXONE 1 GM in DEXTROSE 5%-WATER - 50 ML IVPB SCH (09:46)
[2018-07-21] MEDS: amLODIPine BESYLATE 5 MG TABLET (FP) PO SCH (09:46)
[2018-07-21] MEDS: HEPARIN NA (PORCINE) 5,000 UNITS/ML 1ML VIAL SQ SCH ×2 (09:47→21:28)
[2018-07-21] MEDS: CALCIUM 500MG/VIT-D 200 UNITS COMBO TABLET (FP) PO SCH ×2 (09:47→21:28)
[2018-07-21] MEDS: FLUTICASONE PROP 0.05% 16 GM NASAL SPRAY NS SCH ×2 (09:50→21:29)
[2018-07-21] MEDS: FLUCONAZOLE 100 MG/D5W 50 ML IVPB SCH (11:14)
--- NOTE | 2018-07-21 13:05 | PN ---
Progress Note (short form) - Note Progress Note: pt is more awake today she is eating Vital Signs - 24 hr 07/20/18 07/20/18 07/20/18 15:00 15:24 18:00 Temperature 98 F 98.6 F Pulse Rate 98 H 100 H 98 H Respiratory 20 16 Rate Blood Pressure 140/98 153/97 141/98 O2 Sat by Pulse Oximetry (%) 07/20/18 07/20/18 07/21/18 21:00 23:35 01:56 Temperature 98.5 F Pulse Rate 102 H 95 H Respiratory 18 18 Rate Blood Pressure 116/71 119/71 O2 Sat by Pulse 98 Oximetry (%) 07/21/18 07/21/18 07/21/18 04:25 09:00 09:45 Temperature 98.0 F Pulse Rate 96 H 109 H Respiratory 18 Rate Blood Pressure 123/82 121/50 L O2 Sat by Pulse 98 Oximetry (%) 07/21/18 09:46 Temperature Pulse Rate 109 H Respiratory Rate Blood Pressure 121/50 L O2 Sat by Pulse Oximetry (%) Current Medications Generic Name Dose Route Start Last Admin Trade Name Freq PRN Reason Stop Dose Admin Acetaminophen 650 mg 07/12/18 13:42 07/13/18 00:01 Tylenol - PO 650 mg Q6H PRN Administration FEVER Acetaminophen 1,000 mg 07/13/18 16:41 07/19/18 00:49 Ofirmev Injection - IVPB 1,000 mg Q6H PRN Administration FEVER Albuterol/Ipratropium 1 amp 07/18/18 13:40 07/20/18 20:35 Duoneb - NEB 1 amp Q6H PRN Administration SHORTNESS OF BREATH Amlodipine Besylate 5 mg 07/11/18 18:45 07/21/18 09:46 Norvasc - PO Not Given DAILY [facility] Atorvastatin Calcium 10 mg 07/11/18 22:00 07/20/18 23:34 Lipitor - PO 10 mg HS [facility] Administration Calcium Carbonate/Cholecalciferol 1 tab 07/11/18 10:00 07/21/18 09:47 Os-Horacio 500+D - PO Not Given BID [facility] Docusate Sodium 100 mg 07/11/18 22:00 07/20/18 23:26 Colace - PO Not Given HS [facility] Fluticasone Propionate 1 spray 07/18/18 13:45 07/21/18 09:50 Flonase - NS 1 spray BID [facility] Administration Guaifenesin 10 ml 07/12/18 11:46 07/17/18 21:30 Robitussin - PO 10 ml Q4H PRN Administration COUGH Heparin Sodium (Porcine) 5,000 unit 07/11/18 10:00 07/21/18 09:47 Heparin - SQ 5,000 unit BID [facility] Administration Amino Acids 1,000 mls @ 70 mls/hr 07/18/18 18:00 07/21/18 01:32 Clinimix - IV 70 mls/hr Q14H [facility] Administration Fluconazole 50 mls @ 50 mls/hr 07/19/18 13:00 07/21/18 11:14 Diflucan 100 Mg/D5w Premixed Ivpb - IVPB 50 mls/hr DAILY [facility] Administration Ceftriaxone Sodium 1 gm/ 50 mls @ 100 mls/hr 07/19/18 13:00 07/21/18 09:46 Dextrose IVPB 100 mls/hr DAILY [facility] Administration Insulin Aspart 1 vial 07/12/18 16:30 07/21/18 11:19 Novolog Vial Sliding Scale - SQ 2 units TIDAC [facility] Administration Protocol Levothyroxine Sodium 100 mcg 07/11/18 07:00 07/21/18 06:12 Synthroid - PO 100 mcg DAILY@0700 [facility] Administration Metoprolol Tartrate 5 mg 07/19/18 05:45 07/21/18 09:46 Lopressor Injection - IVPB 5 mg Q6H-IV [facility] Administration Sodium Phosphate 133 ml 07/11/18 00:15 Fleet Adult Rectal Enema - RC PRN PRN CONSTIPATION Laboratory Results - last 24 hr 07/20/18 07/21/18 07/21/18 16:35 06:15 06:30 WBC 10.1 H RBC 4.25 Hgb 13.7 Hct 38.9 MCV 91.5 MCH 32.3 MCHC 35.3 RDW 15.0 Plt Count 343 MPV 7.1 L Absolute Neuts (auto) 7.7 Neutrophils % 76.8 Lymphocytes % 15.8 D Monocytes % 6.1 Eosinophils % 0.6 Basophils % 0.7 Nucleated RBC % 0 Sodium Potassium Chloride Carbon Dioxide Anion Gap BUN Creatinine Creat Clearance w eGFR POC Glucometer 138 144 Random Glucose Calcium Total Bilirubin AST ALT Alkaline Phosphatase Total Protein Albumin 07/21/18 07/21/18 06:30 11:18 WBC RBC Hgb Hct MCV MCH MCHC RDW Plt Count MPV Absolute Neuts (auto) Neutrophils % Lymphocytes % Monocytes % Eosinophils % Basophils % Nucleated RBC % Sodium 138 Potassium 3.6 Chloride 105 Carbon Dioxide 26 Anion Gap 8 BUN 22 H Creatinine 0.6 Creat Clearance w eGFR > 60 POC Glucometer 166 Random Glucose 138 H Calcium 8.8 Total Bilirubin 0.3 AST 25 ALT 22 Alkaline Phosphatase 62 Total Protein 6.1 L Albumin 2.9 L S1 S2 RRR lungs decreased Abd- soft, NT rt arm edema no leg edema PLAN on iv antibiotics consider palliative care reculture clnimix improved aspiration precautions Problem List - Problems (1) Acute metabolic encephalopathy Code(s): G93.41 - METABOLIC ENCEPHALOPATHY (2) Altered mental status Code(s): R41.82 - ALTERED MENTAL STATUS, UNSPECIFIED Qualifiers: Altered mental status type: unspecified Qualified Code(s): R41.82 - Altered mental status, unspecified (3) Urinary tract infection Code(s): N39.0 - URINARY TRACT INFECTION, SITE NOT SPECIFIED Qualifiers: Urinary tract infection type: site unspecified Hematuria presence: without hematuria Qualified Code(s): N39.0 - Urinary tract infection, site not specified (4) Anxiety Code(s): F41.9 - ANXIETY DISORDER, UNSPECIFIED
[2018-07-21] MEDS ORDERED: SIMETHICONE 40 MG/0.6 ML BOTTLE PO PRN (16:16)
[2018-07-21] MEDS: DOCUSATE SODIUM 100 MG CAPSULE (FP) PO SCH (21:28)
[2018-07-21] MEDS: ATORVASTATIN CA 10 MG TABLET (FP) PO SCH (21:28)
[2018-07-22] MEDS: METOPROLOL TARTRATE 5 MG/5 ML VIAL IVPB SCH ×4 (03:08→20:58)
[2018-07-22] MEDS: AMINO ACIDS 4.25%/D5W 1,000 ML IV SCH ×2 (05:21→15:21)
[2018-07-22] MEDS: INSULIN SLIDING SCALE (NOVOLOG) 1 VIAL SQ SCH ×3 (06:03→17:30)
[2018-07-22] MEDS: LEVOTHYROXINE NA 100 MCG TABLET (FP) PO SCH (06:04)
--- NOTE | 2018-07-22 09:35 | PN ---
Progress Note (short form) - Note Progress Note: pt is more awake today Vital Signs - 24 hr 07/21/18 07/21/18 07/21/18 20:23 21:00 21:19 Temperature Pulse Rate 107 H 107 H Respiratory 18 Rate Blood Pressure 151/99 O2 Sat by Pulse 96 Oximetry (%) 07/22/18 07/22/18 07/22/18 03:00 03:08 09:00 Temperature Pulse Rate 96 H 96 H Respiratory 18 19 Rate Blood Pressure 160/97 160/97 O2 Sat by Pulse 96 Oximetry (%) Current Medications Generic Name Dose Route Start Last Admin Trade Name Freq PRN Reason Stop Dose Admin Acetaminophen 650 mg 07/12/18 13:42 07/13/18 00:01 Tylenol - PO 650 mg Q6H PRN Administration FEVER Acetaminophen 1,000 mg 07/13/18 16:41 07/19/18 00:49 Ofirmev Injection - IVPB 1,000 mg Q6H PRN Administration FEVER Albuterol/Ipratropium 1 amp 07/18/18 13:40 07/20/18 20:35 Duoneb - NEB 1 amp Q6H PRN Administration SHORTNESS OF BREATH Amlodipine Besylate 5 mg 07/11/18 18:45 07/22/18 10:56 Norvasc - PO 5 mg DAILY [facility] Administration Atorvastatin Calcium 10 mg 07/11/18 22:00 07/21/18 21:28 Lipitor - PO 10 mg HS [facility] Administration Calcium Carbonate/Cholecalciferol 1 tab 07/11/18 10:00 07/22/18 10:56 Os-Horacio 500+D - PO 1 tab BID [facility] Administration Docusate Sodium 100 mg 07/11/18 22:00 07/21/18 21:28 Colace - PO 100 mg HS [facility] Administration Fluticasone Propionate 1 spray 07/18/18 13:45 07/22/18 10:24 Flonase - NS 1 spray BID [facility] Administration Guaifenesin 10 ml 07/12/18 11:46 07/17/18 21:30 Robitussin - PO 10 ml Q4H PRN Administration COUGH Heparin Sodium (Porcine) 5,000 unit 07/11/18 10:00 07/22/18 10:55 Heparin - SQ 5,000 unit BID [facility] Administration Fluconazole 50 mls @ 50 mls/hr 07/19/18 13:00 07/22/18 10:55 Diflucan 100 Mg/D5w Premixed Ivpb - IVPB 50 mls/hr DAILY [facility] Administration Ceftriaxone Sodium 1 gm/ 50 mls @ 100 mls/hr 07/19/18 13:00 07/22/18 10:56 Dextrose IVPB 100 mls/hr DAILY [facility] Administration Amino Acids 1,000 mls @ 40 mls/hr 07/22/18 17:57 Clinimix - IV Q14H [facility] Insulin Aspart 1 vial 07/12/18 16:30 07/22/18 17:30 Novolog Vial Sliding Scale - SQ Not Given TIDAC [facility] Protocol Levothyroxine Sodium 100 mcg 07/11/18 07:00 07/22/18 06:04 Synthroid - PO 100 mcg DAILY@0700 [facility] Administration Metoprolol Tartrate 5 mg 07/19/18 05:45 07/22/18 15:21 Lopressor Injection - IVPB 5 mg Q6H-IV [facility] Administration Simethicone 40 mg 07/21/18 16:16 07/21/18 17:22 Mylicon Liquid - PO 40 mg Q6H PRN Administration GAS Sodium Phosphate 133 ml 07/11/18 00:15 Fleet Adult Rectal Enema - RC PRN PRN CONSTIPATION Laboratory Results - last 24 hr 07/22/18 07/22/18 07/22/18 05:33 11:35 17:19 POC Glucometer 139 209 129 S1 S2 RRR lungs decreased Abd- soft, NT rt arm edema no leg edema PLAN on iv antibiotics eating improved decrease clinimix aspiration precautions Problem List - Problems (1) Acute metabolic encephalopathy Code(s): G93.41 - METABOLIC ENCEPHALOPATHY (2) Altered mental status Code(s): R41.82 - ALTERED MENTAL STATUS, UNSPECIFIED Qualifiers: Altered mental status type: unspecified Qualified Code(s): R41.82 - Altered mental status, unspecified (3) Urinary tract infection Code(s): N39.0 - URINARY TRACT INFECTION, SITE NOT SPECIFIED Qualifiers: Urinary tract infection type: site unspecified Hematuria presence: without hematuria Qualified Code(s): N39.0 - Urinary tract infection, site not specified (4) Anxiety Code(s): F41.9 - ANXIETY DISORDER, UNSPECIFIED
[2018-07-22] MEDS: FLUTICASONE PROP 0.05% 16 GM NASAL SPRAY NS SCH ×2 (10:24→21:00)
[2018-07-22] MEDS ORDERED: DEXTROSE 5%-WATER - 50 ML IVPB ONE (10:44)
[2018-07-22] MEDS ORDERED: cefTRIAXone SODIUM 1 GM VIAL ONE (10:44)
[2018-07-22] MEDS ORDERED: PT OWN MED DRAWER 7, Y5N ONE (10:44)
[2018-07-22] MEDS: HEPARIN NA (PORCINE) 5,000 UNITS/ML 1ML VIAL SQ SCH ×2 (10:55→21:00)
[2018-07-22] MEDS: FLUCONAZOLE 100 MG/D5W 50 ML IVPB SCH (10:55)
[2018-07-22] MEDS: amLODIPine BESYLATE 5 MG TABLET (FP) PO SCH (10:56)
[2018-07-22] MEDS: CEFTRIAXONE 1 GM in DEXTROSE 5%-WATER - 50 ML IVPB SCH (10:56)
[2018-07-22] MEDS: CALCIUM 500MG/VIT-D 200 UNITS COMBO TABLET (FP) PO SCH ×2 (10:56→20:59)
[2018-07-22] MEDS ORDERED: AMINO ACIDS 4.25%/D5W 1,000 ML IV SCH ×2 (17:57→18:00)
[2018-07-22] MEDS: DOCUSATE SODIUM 100 MG CAPSULE (FP) PO SCH (20:59)
[2018-07-22] MEDS: ATORVASTATIN CA 10 MG TABLET (FP) PO SCH (20:59)
[2018-07-23] MEDS: METOPROLOL TARTRATE 5 MG/5 ML VIAL IVPB SCH ×4 (02:36→21:19)
[2018-07-23] MEDS: INSULIN SLIDING SCALE (NOVOLOG) 1 VIAL SQ SCH ×3 (06:06→17:35)
[2018-07-23] MEDS: LEVOTHYROXINE NA 100 MCG TABLET (FP) PO SCH (06:06)
[2018-07-23 07:49] LABS: HEMATOCRIT 35.2 % (32.4-45.2); HEMOGLOBIN 11.6 GM/dL (10.7-15.3); MCH 30.5 pg (25.7-33.7); MCHC 32.9 g/dl (32.0-36.0); MEAN CELL VOLUME 92.9 fl (80-96); MEAN PLT VOLUME 7.2 fl (7.5-11.1); PLATELET COUNT 293 K/MM3 (134-434); RBC 3.79 M/mm3 (3.60-5.2); RDW 15.1 % (11.6-15.6); WHITE BLOOD COUNT 7.3 K/mm3 (4.0-10.0)
[2018-07-23 08:26] LABS: ALBUMIN 2.7 g/dl (3.4-5.0); ALK PHOS 57 U/L (45-117); ANION GAP 7 MMOL/L (8-16); BILIRUBIN,TOTAL 0.6 mg/dL (0.2-1); BLOOD UREA NITROGEN 21 mg/dL (7-18); CALCIUM 8.2 mg/dL (8.5-10.1); CHLORIDE 108 mmol/L (98-107); CO2 27 mmol/L (21-32); CREATININE 0.6 mg/dL (0.55-1.3); GLUCOSE,RANDOM 63 mg/dL (74-106); POTASSIUM 3.4 mmol/L (3.5-5.1); SGOT/AST 20 U/L (15-37); SGPT/ALT 21 U/L (13-61); SODIUM 142 mmol/L (136-145); TOT PROT 5.5 g/dl (6.4-8.2)
[2018-07-23] MEDS ORDERED: cefTRIAXone SODIUM 1 GM VIAL ONE (09:52)
[2018-07-23] MEDS ORDERED: PT OWN MED DRAWER 7, Y5N ONE (09:52)
[2018-07-23] MEDS ORDERED: DEXTROSE 5%-WATER - 50 ML IVPB ONE (09:52)
[2018-07-23] MEDS ORDERED: POTASSIUM CHLORIDE ORAL LIQUID 20 MEQ/15 ML PO ONE (10:00)
[2018-07-23] MEDS: HEPARIN NA (PORCINE) 5,000 UNITS/ML 1ML VIAL SQ SCH ×2 (10:08→22:14)
[2018-07-23] MEDS: amLODIPine BESYLATE 5 MG TABLET (FP) PO SCH (10:08)
[2018-07-23] MEDS: CALCIUM 500MG/VIT-D 200 UNITS COMBO TABLET (FP) PO SCH ×2 (10:08→22:14)
[2018-07-23] MEDS: FLUCONAZOLE 100 MG/D5W 50 ML IVPB SCH (10:09)
[2018-07-23] MEDS: CEFTRIAXONE 1 GM in DEXTROSE 5%-WATER - 50 ML IVPB SCH (10:10)
[2018-07-23] MEDS: FLUTICASONE PROP 0.05% 16 GM NASAL SPRAY NS SCH ×2 (10:31→22:16)
--- NOTE | 2018-07-23 11:04 | PN ---
Progress Note (short form) - Note Progress Note: pt seen/ examined chart reviewed awake and comfortable chronic ill appearance No distress Afebrile Eating better Vital Signs Temp 97.8 F 07/23/18 10:00 Pulse 89 07/23/18 10:09 Resp 17 07/23/18 10:00 BP 123/69 07/23/18 10:09 Pulse Ox 98 07/22/18 21:00 Intake & Output 07/22/18 07/22/18 07/23/18 11:59 23:59 11:59 Intake Total 860 970 450 Balance 860 970 450 Intake: IV 700 770 450 clinimix @70 700 770 450 IVPB 100 200 Oral Supplement 60 Other: Voiding Method Incontinent Incontinent # Unmeasured Voids Void 1 2 2 Bowel Movement No No Active Medications Acetaminophen (Tylenol -) 650 mg PO Q6H PRN PRN Reason: FEVER Last Admin: 07/13/18 00:01 Dose: 650 mg Acetaminophen (Ofirmev Injection -) 1,000 mg IVPB Q6H PRN PRN Reason: FEVER Last Admin: 07/19/18 00:49 Dose: 1,000 mg Albuterol/Ipratropium (Duoneb -) 1 amp NEB Q6H PRN PRN Reason: SHORTNESS OF BREATH Last Admin: 07/20/18 20:35 Dose: 1 amp Amlodipine Besylate (Norvasc -) 5 mg PO DAILY [facility] Last Admin: 07/23/18 10:08 Dose: 5 mg Atorvastatin Calcium (Lipitor -) 10 mg PO HS [facility] Last Admin: 07/22/18 20:59 Dose: 10 mg Calcium Carbonate/Cholecalciferol (Os-Horacio 500+D -) 1 tab PO BID [facility] Last Admin: 07/23/18 10:08 Dose: 1 tab Docusate Sodium (Colace -) 100 mg PO HS [facility] Last Admin: 07/22/18 20:59 Dose: 100 mg Fluticasone Propionate (Flonase -) 1 spray NS BID [facility] Last Admin: 07/23/18 10:31 Dose: 1 spray Guaifenesin (Robitussin -) 10 ml PO Q4H PRN PRN Reason: COUGH Last Admin: 07/17/18 21:30 Dose: 10 ml Heparin Sodium (Porcine) (Heparin -) 5,000 unit SQ BID [facility] Last Admin: 07/23/18 10:08 Dose: 5,000 unit Fluconazole (Diflucan 100 Mg/D5w Premixed Ivpb -) 50 mls @ 50 mls/hr IVPB DAILY [facility] Last Admin: 07/23/18 10:09 Dose: 50 mls/hr Ceftriaxone Sodium 1 gm/ (Dextrose) 50 mls @ 100 mls/hr IVPB DAILY [facility] Last Admin: 07/23/18 10:10 Dose: 100 mls/hr Amino Acids (Clinimix -) 1,000 mls @ 40 mls/hr IV Q24H [facility] Last Admin: 07/22/18 19:14 Dose: 40 mls/hr Insulin Aspart (Novolog Vial Sliding Scale -) 1 vial SQ TIDAC [facility]; Protocol Last Admin: 07/23/18 06:06 Dose: 2 units Levothyroxine Sodium (Synthroid -) 100 mcg PO DAILY@0700 [facility] Last Admin: 07/23/18 06:06 Dose: 100 mcg Metoprolol Tartrate (Lopressor Injection -) 5 mg IVPB Q6H-IV [facility] Last Admin: 07/23/18 10:09 Dose: 5 mg Potassium Chloride (K-Dur -) 20 meq PO ONCE ONE Stop: 07/23/18 11:04 Simethicone (Mylicon Liquid -) 40 mg PO Q6H PRN PRN Reason: GAS Last Admin: 07/21/18 17:22 Dose: 40 mg Sodium Phosphate (Fleet Adult Rectal Enema -) 133 ml RC PRN PRN PRN Reason: CONSTIPATION CBC, BMP 07/23/18 06:25 07/23/18 06:25 Microbiology 07/19/18 13:03 Blood Culture - Preliminary Blood - Peripheral Venous NO GROWTH OBTAINED AFTER 72 HOURS, INCUBATION TO CONTINUE FOR 2 DAYS. 07/19/18 12:58 Blood Culture - Preliminary Blood - Peripheral Venous NO GROWTH OBTAINED AFTER 72 HOURS, INCUBATION TO CONTINUE FOR 2 DAYS. Abnormal Lab Results 07/23/18 07/23/18 06:25 06:25 MPV 7.2 L Potassium 3.4 L Chloride 108 H Anion Gap 7 L BUN 21 H Random Glucose 63 L Calcium 8.2 L Total Protein 5.5 L Albumin 2.7 L physical exam S1 S2 RRR lungs decreased at bases Abd- soft, NT neuro--- awake PLAN clinically better Overall condition remains guarded eating better Discontinue Clinimix after present back finishes Antibiotics as per ID discontinuing the a.m.? Daily out of bed to chair and physical therapy Discussed with nursing staff If improved--- anticipated discharge in next 24-48 hours Discussed with special education case manager also Problem List - Problems (1) Acute metabolic encephalopathy Code(s): G93.41 - METABOLIC ENCEPHALOPATHY (2) Dementia Code(s): F03.90 - UNSPECIFIED DEMENTIA WITHOUT BEHAVIORAL DISTURBANCE (3) Urinary tract infection Code(s): N39.0 - URINARY TRACT INFECTION, SITE NOT SPECIFIED Qualifiers: Urinary tract infection type: site unspecified Hematuria presence: without hematuria Qualified Code(s): N39.0 - Urinary tract infection, site not specified
[2018-07-23] MEDS ORDERED: POTASSIUM CHLORIDE TABS 20 MEQ TABLET.ER (FP) PO ONE (11:15)
[2018-07-23] MEDS: DOCUSATE SODIUM 100 MG CAPSULE (FP) PO SCH (22:14)
[2018-07-23] MEDS: ATORVASTATIN CA 10 MG TABLET (FP) PO SCH (22:14)
[2018-07-24] MEDS: METOPROLOL TARTRATE 5 MG/5 ML VIAL IVPB SCH ×2 (02:40→11:00)
[2018-07-24] MEDS: INSULIN SLIDING SCALE (NOVOLOG) 1 VIAL SQ SCH ×3 (06:01→17:38)
[2018-07-24] MEDS: LEVOTHYROXINE NA 100 MCG TABLET (FP) PO SCH (06:01)
[2018-07-24] MEDS ORDERED: DEXTROSE 5%-WATER - 50 ML IVPB ONE (10:28)
[2018-07-24] MEDS ORDERED: cefTRIAXone SODIUM 1 GM VIAL ONE (10:28)
[2018-07-24] MEDS ORDERED: PT OWN MED DRAWER 7, Y5N ONE (10:28)
[2018-07-24] MEDS: CALCIUM 500MG/VIT-D 200 UNITS COMBO TABLET (FP) PO SCH ×2 (10:44→23:02)
[2018-07-24] MEDS: amLODIPine BESYLATE 5 MG TABLET (FP) PO SCH (10:44)
[2018-07-24] MEDS: HEPARIN NA (PORCINE) 5,000 UNITS/ML 1ML VIAL SQ SCH (10:44)
[2018-07-24] MEDS: FLUTICASONE PROP 0.05% 16 GM NASAL SPRAY NS SCH ×2 (10:45→23:02)
[2018-07-24] MEDS: FLUCONAZOLE 100 MG/D5W 50 ML IVPB SCH (11:04)
[2018-07-24] MEDS: CEFTRIAXONE 1 GM in DEXTROSE 5%-WATER - 50 ML IVPB SCH (11:05)
--- NOTE | 2018-07-24 13:05 | PN ---
Progress Note (short form) - Note Progress Note: pt is more awake today \ she is eating without difficulty no distress afebrile Vital Signs - 24 hr 07/23/18 07/23/18 07/23/18 15:12 15:47 18:31 Temperature 98.1 F 98.5 F Pulse Rate 103 H 103 H 92 H Respiratory 20 20 Rate Blood Pressure 120/82 120/82 140/83 O2 Sat by Pulse Oximetry (%) 07/23/18 07/23/18 07/24/18 21:00 21:19 02:40 Temperature Pulse Rate 98 H 96 H Respiratory Rate Blood Pressure 137/87 139/89 O2 Sat by Pulse 98 Oximetry (%) 07/24/18 07/24/18 10:43 11:00 Temperature 98.2 F Pulse Rate 88 88 Respiratory 18 Rate Blood Pressure 133/89 133/89 O2 Sat by Pulse Oximetry (%) Current Medications Generic Name Dose Route Start Last Admin Trade Name Freq PRN Reason Stop Dose Admin Acetaminophen 650 mg 07/12/18 13:42 07/13/18 00:01 Tylenol - PO 650 mg Q6H PRN Administration FEVER Albuterol/Ipratropium 1 amp 07/18/18 13:40 07/20/18 20:35 Duoneb - NEB 1 amp Q6H PRN Administration SHORTNESS OF BREATH Amlodipine Besylate 5 mg 07/11/18 18:45 07/24/18 10:44 Norvasc - PO 5 mg DAILY [facility] Administration Atorvastatin Calcium 10 mg 07/11/18 22:00 07/23/18 22:14 Lipitor - PO 10 mg HS [facility] Administration Calcium Carbonate/Cholecalciferol 1 tab 07/11/18 10:00 07/24/18 10:44 Os-Horacio 500+D - PO 1 tab BID [facility] Administration Docusate Sodium 100 mg 07/11/18 22:00 07/23/18 22:14 Colace - PO 100 mg HS [facility] Administration Fluticasone Propionate 1 spray 07/18/18 13:45 07/24/18 10:45 Flonase - NS 1 spray BID [facility] Administration Guaifenesin 10 ml 07/12/18 11:46 07/17/18 21:30 Robitussin - PO 10 ml Q4H PRN Administration COUGH Insulin Aspart 1 vial 07/12/18 16:30 07/24/18 11:38 Novolog Vial Sliding Scale - SQ Not Given TIDAC [facility] Protocol Levothyroxine Sodium 100 mcg 07/11/18 07:00 07/24/18 06:01 Synthroid - PO 100 mcg DAILY@0700 [facility] Administration Metoprolol Tartrate 25 mg 07/24/18 22:00 Lopressor - PO BID [facility] Simethicone 40 mg 07/21/18 16:16 07/21/18 17:22 Mylicon Liquid - PO 40 mg Q6H PRN Administration GAS Sodium Phosphate 133 ml 07/11/18 00:15 Fleet Adult Rectal Enema - RC PRN PRN CONSTIPATION Laboratory Results - last 24 hr 07/23/18 07/24/18 07/24/18 17:33 05:53 11:37 POC Glucometer 89 119 129 S1 S2 RRR lungs decreased Abd- soft, NT no edema PLAN on iv antibiotics-- will dc today eating improved aspiration precautions dc plan for AM if remains afebrile Problem List - Problems (1) Acute metabolic encephalopathy Code(s): G93.41 - METABOLIC ENCEPHALOPATHY (2) Altered mental status Code(s): R41.82 - ALTERED MENTAL STATUS, UNSPECIFIED Qualifiers: Altered mental status type: unspecified Qualified Code(s): R41.82 - Altered mental status, unspecified (3) Urinary tract infection Code(s): N39.0 - URINARY TRACT INFECTION, SITE NOT SPECIFIED Qualifiers: Urinary tract infection type: site unspecified Hematuria presence: without hematuria Qualified Code(s): N39.0 - Urinary tract infection, site not specified (4) Anxiety Code(s): F41.9 - ANXIETY DISORDER, UNSPECIFIED
[2018-07-24] MEDS: ATORVASTATIN CA 10 MG TABLET (FP) PO SCH (23:02)
[2018-07-24] MEDS: METOPROLOL TARTRATE 25 MG TABLET (FP) PO SCH (23:02)
[2018-07-24] MEDS: DOCUSATE SODIUM 100 MG CAPSULE (FP) PO SCH (23:03)
[2018-07-25] MEDS: ALBUTEROL SO4 2.5/IPRATROPIUM 0.5 INH SOL 3 ML VIAL.NEB. NEB PRN (06:30)
[2018-07-25] MEDS: INSULIN SLIDING SCALE (NOVOLOG) 1 VIAL SQ SCH ×2 (07:08→11:26)
[2018-07-25] MEDS: LEVOTHYROXINE NA 100 MCG TABLET (FP) PO SCH (07:09)
[2018-07-25] MEDS ORDERED: PT OWN MED DRAWER 7, Y5N ONE (10:31)
[2018-07-25] MEDS: CALCIUM 500MG/VIT-D 200 UNITS COMBO TABLET (FP) PO SCH (10:32)
[2018-07-25] MEDS: METOPROLOL TARTRATE 25 MG TABLET (FP) PO SCH (10:32)
[2018-07-25] MEDS: amLODIPine BESYLATE 5 MG TABLET (FP) PO SCH (10:32)
[2018-07-25] MEDS: FLUTICASONE PROP 0.05% 16 GM NASAL SPRAY NS SCH (10:33)
--- NOTE | 2018-07-25 11:01 | DS ---
Physical Examination Vital Signs: Vital Signs Temperature 97.7 F 07/25/18 09:00 Pulse Rate 99 H 07/25/18 09:00 Respiratory Rate 20 07/25/18 09:00 Blood Pressure 116/74 07/25/18 09:00 O2 Sat by Pulse Oximetry (%) 98 07/24/18 21:00 Constitutional: Yes: No Distress, Calm Cardiovascular: Yes: Regular Rate and Rhythm Respiratory: Yes: CTA Bilaterally Gastrointestinal: Yes: Normal Bowel Sounds, Soft. No: Tenderness Edema: No Labs: CBC, BMP 07/23/18 06:25 07/23/18 06:25 Discharge Summary Reason For Visit: UTI AMS Current Active Problems Acute metabolic encephalopathy (Acute) Altered mental status (Acute) Dementia (Acute) Urinary tract infection (Acute) Hospital Course: Admitted for UTI, AMS Seen by ID Possible aspiration on Iv antibiotics for aspiration pneumonia blood cultures negative Pt was initially on Clinimix, evaluated by swallow therapist-- diet adjusted Pt clinically improved antibiotics completed Eating better stable for dc to NH Condition: Stable - Instructions Referrals: Silverio Hsu MD [Primary Care Provider] - Disposition: HALF-WAY FACILITY - Home Medications Comprehensive Discharge Medication List: Ambulatory Orders Levothyroxine [Synthroid -] 100 mcg PO DAILY 08/24/14 Sertraline HCl [Zoloft -] 25 mg PO BID 08/24/14 Tramadol HCl 50 mg PO Q6H PRN 02/02/15 Calcium Carbonate/Vitamin D3 [Calcium 500 mg-Vit D3 600 Unit] 1 each PO BID Chol/Aa10/Best/Chvt137/Prt/Lec [Theramine Plus Powder Packet] 27 mg PO DAILY Dextromethorphan HBr/Quinidine [Nuedexta 20-10 mg Capsule] 1 each PO BID Docusate Sodium [Colace] 100 mg PO HS 03/22/18 Fluticasone Prop 0.05% Nasal [Flonase -] 1 - 2 spray NS DAILY 03/22/18 Fosamprenavir Calcium 700 mg PO WEEKLY 03/22/18 Gabapentin [Neurontin] 100 mg PO BID 03/22/18 Lorazepam 0.5 mg PO BID PRN 03/22/18 Mag Hydrox/Al Hydrox/Simeth [Mylanta *Suspension*] 30 ml PO Q6H PRN 03/22/18 Melatonin 5 mg PO HS 03/22/18 Mirtazapine [Remeron -] 15 mg PO HS 03/22/18 Nystatin/Triamcinolone Top Cr [Mycolog II -] 1 applic TP BID 03/22/18 Sennosides [Senna] 8.6 mg PO HS 03/22/18 Sertraline HCl [Zoloft] 100 mg PO DAILY 03/22/18 Simvastatin [Zocor] 10 mg PO HS 03/22/18 Sodium Phosphate,[place]-Dibasic [Fleet Enema] 133 ml RC PRN PRN 03/22/18
[2018-07-25] MEDS ORDERED: DOCUSATE NA 100 MG/10 ML UNIT-DOSE CUPS PO PRN (11:03)
[2018-07-25 13:04] VITALS: BP 148/80; PULSE 96; TEMP 98.1
== END 2018-07-25 14:30 | DRG 177 ==
LOC: JER 20:01 → JERBED 07-11 00:11 → J5S 07-11 04:01 → OBSVTOIN 07-13 12:17
PROVIDERS: ADMIT Internal Medicine; ATTEND Internal Medicine
DX: J69.0 Pneumonitis due to inhalation of food and vomit (principal); G92 Toxic encephalopathy; F20.0 Paranoid schizophrenia; N39.0 Urinary tract infection, site not specified; B96.1 Klebsiella pneumoniae [K. pneumoniae] as the cause of diseases classified elsewhere; R09.02 Hypoxemia; F31.9 Bipolar disorder, unspecified; I10 Essential (primary) hypertension; R56.9 Unspecified convulsions; J44.9 Chronic obstructive pulmonary disease, unspecified; E03.9 Hypothyroidism, unspecified; K59.00 Constipation, unspecified; F03.90 Unspecified dementia, unspecified severity, without behavioral disturbance, psychotic disturbance, mood disturbance, and anxiety; F41.9 Anxiety disorder, unspecified; M54.5 Low back pain
CPT/HCPCS: 36415; 36600; 70450-TC; 71045-TC-FY; 74230-TC-FY; 80048; 80053; 80061; 81003; 81015; 82550; 82607; 82803; 82962; 83721; 83735; 84100; 84443; 84484; 85025; 85027; 85610; 85730; 86593; 87040; 87070; 87086; 87186; 87205; 92611-GN; 93005; 93010; 94640; 99284-25; G0378; J0131; J1644; J7030

== ENCOUNTER 2019-08-06 16:35 | Emergency (ER) | payer OTHER ==
[2019-08-06] MEDS ORDERED: NOREPINEPHRINE BITARTRATE 4 MG/4 ML ML IV ONE (16:54)
[2019-08-06] MEDS ORDERED: EPINEPHrine 1:10,000 (P-F SYR) 1 MG/10 ML DISP.SYRIN ONE (16:55)
[2019-08-06] MEDS ORDERED: CALCIUM CHLORIDE 1 GM/10 ML *DISP.SYRIN ONE (16:55)
[2019-08-06] MEDS ORDERED: SODIUM BICARBONATE 8.4% 50 MEQ/50 ML VIAL ONE (16:55)
[2019-08-06] MEDS ORDERED: ATROPINE SULFATE 1 MG/10 ML DISP.SYRIN ONE (16:55)
[2019-08-06] MEDS ORDERED: RAPID SEQUENCE INTUBATION KIT NR ONE (16:56)
[2019-08-06] MEDS ORDERED: PROPOFOL 1,000,000 MCG/100 ML VIAL ONE (17:03)
[2019-08-06 17:14] VITALS: BMI 35.2
--- NOTE | 2019-08-06 17:32 | PDOC ---
History of Present Illness - History of Present Illness Initial Comments: 08/06/19 17:32 HPI: 84 y/o F with hx of HTN, HLD, COPD, dementia, recurrent UTIs, seizuers, hypothyroid BIBEMS with cardiac arrest. Patient resident of [facility] and call to EMS was initially placed for concern for sepsis due to increasing respiratory effort. Patient started on zpack 2 days ago without improvement. Today she was lethargic and sats noted to be in 60s with HR 150s. On EMS arrival, patient was intubated for respiratory distress. Patient was then noted to sinan and received atropine. Patient then decompensated and went into asystole and CPR was initiated. Patient went through 2 rounds of CPR and received 1g Epi, 1g Ca, 50mEq NaCO3 and ROSC was achieved. Gena-arrest following intubation patient was ntoed to have decreased breath sounds on the right with deviated trachea to the left and severe hypotension. Tension pnx was a concern at this time and needle decompression was performed with a buckner of air heard. Patient brought in to the ED with BP 100/73 and HR 120s and sats 70s. Patient was in sinus tach. Intubation was confirmed under DL and patient placed on the vent. Patient remainewd unresponsive without sedation and pupils were fixed. PMHx: as noted above ROS: as noted SHx: n/a Allergies: NKDA ROS: unable to be performed 2/2 mental status PE: GENERAL: unresponsive HEAD: No signs of trauma, normocephalic, atraumatic EYES: pupils fixed, equal, and unreactive LUNGS: intubated with BL breath sounds HEART: tachycardia ABDOMEN: Soft, nondistended MUSCULOSKELETAL: no ROM NEUROLOGICAL: limited by mental status SKIN: Warm, Dry, normal turgor, no rashes or lesions noted <Neva Wyatt - Last Filed: 08/06/19 20:58> <Jade Gregorio - Last Filed: 08/07/19 12:19> - General Stated Complaint: CARDIAC ARREST Past History - Past Medical History COPD: No Dementia: Yes HTN: Yes Psychiatric Problems: Yes (ANXIETY, DEPRESSION) Seizures: Yes Thyroid Disease: Yes (HYPO.) - Surgical History Abdominal Surgery: Yes Cholecystectomy: Yes - Psycho Social/Smoking Cessation Hx Smoking History: Smoker current status UNK Have you smoked in the past 12 months: No Information on smoking cessation initiated: No Hx Alcohol Use: No Drug/Substance Use Hx: No Substance Use Type: None Hx Substance Use Treatment: No <Neva Wyatt - Last Filed: 08/06/19 20:58> <Jade Gregorio - Last Filed: 08/07/19 12:19> - Past Medical History Allergies/Adverse Reactions: Allergies Allergy/AdvReac Type Severity Reaction Status Date / Time No Known Drug Allergies Allergy Verified 07/10/18 20:27 Home Medications: Ambulatory Orders Levothyroxine [Synthroid -] 100 mcg PO DAILY 08/24/14 Calcium Carbonate/Vitamin D3 [Calcium 500 mg-Vit D3 600 Unit] 1 each PO BID Chol/Aa10/Best/Xsqt112/Prt/Lec [Theramine Plus Powder Packet] 27 mg PO DAILY Fluticasone Prop 0.05% Nasal [Flonase -] 1 - 2 spray NS DAILY 03/22/18 Fosamprenavir Calcium 700 mg PO WEEKLY 03/22/18 Mag Hydrox/Al Hydrox/Simeth [Mylanta Oral Suspension -] 30 ml PO Q6H PRN Nystatin/Triamcinolone Top Cr [Mycolog II -] 1 applic TP BID 03/22/18 Sennosides [Senna] 8.6 mg PO HS 03/22/18 Simvastatin [Zocor -] 10 mg PO HS 03/22/18 Sodium Phosphate,R[place]-Dibasic [Fleet Enema] 133 ml RC PRN PRN 03/22/18 Amlodipine Besylate [Norvasc -] 5 mg PO DAILY #30 tablet 07/25/18 Docusate Sodium [Stool Softener] 50 mg PO TID #14 ml 07/25/18 Metoprolol Tartrate [Lopressor -] 25 mg PO BID #20 tablet 07/25/18 *Physical Exam - Vital Signs Last Vital Signs Temp Pulse Resp BP Pulse Ox 130 H 16 129/89 97 08/06/19 16:56 08/06/19 17:20 08/06/19 16:56 08/06/19 17:20 <Neva Wyatt - Last Filed: 08/06/19 20:58> - Vital Signs Last Vital Signs Temp Pulse Resp BP Pulse Ox 105.7 F H 130 H 16 72/52 L 96 08/06/19 17:35 08/06/19 17:57 08/06/19 17:57 08/06/19 17:57 08/06/19 17:57 <Jade Gregorio - Last Filed: 08/07/19 12:19> Procedures - Central Line Central Line Lumen: triple Central Line Position: femoral (L) Complications: none <Neva Wyatt - Last Filed: 08/06/19 20:58> ED Treatment Course - LABORATORY CBC & Chemistry Diagram: 08/06/19 16:39 08/06/19 16:39 <Neva Wyatt - Last Filed: 08/06/19 20:58> - LABORATORY CBC & Chemistry Diagram: 08/06/19 16:39 08/06/19 16:39 - ADDITIONAL ORDERS Additional order review: Laboratory Results 08/06/19 16:50 Urine Color Yellow Urine Appearance Turbid Urine pH 6.5 D Ur Specific [place] 1.020 Urine Protein 3+ H Urine Glucose (UA) Trace Urine Ketones Negative Urine Blood 2+ H Urine Nitrite Negative Urine Bilirubin Negative Urine Urobilinogen 0.2 Ur Leukocyte Esterase 1+ H Urine WBC (Auto) 422 Urine Casts (Auto) 0 U Epithel Cells (Auto) 0 Urine Bacteria (Auto) >9000 - RADIOLOGY Radiology Studies Ordered: Category Date Time Status CHEST CT WITHOUT CONTRAST [CT] Stat CT Scan 08/06/19 17:[address] WITHOUT CONTRAST [CT] Stat CT Scan 08/06/19 17:40 Ordered - Medications Given in the ED: ED Medications Discontinued Medications Generic Name Dose Route Start Last Admin Trade Name Tereso PRN Reason Stop Dose Admin Acetaminophen 1,000 mg 08/06/19 17:37 08/06/19 17:35 Ofirmev Injection - IVPB 08/06/19 17:38 1,000 mg ONCE ONE Administration Piperacillin Sod/Tazobactam 100 mls @ 200 mls/hr 08/06/19 17:38 08/06/19 17: 45 Sod 4.5 gm/ Dextrose IVPB 08/06/19 18:07 200 mls/hr ONCE ONE Administration Protocol <Jade Gregorio - Last Filed: 08/07/19 12:19> Medical Decision Making - Critical Care Time Total Critical Care Time (minutes): 90 Critical Care Statement: The care of this patient involved high complexity decision making to prevent further life threatening deterioration of the patient 's condition and/or to evaluate & treat vital organ system(s) failure or risk of failure. - Medical Decision Making 08/06/19 21:07 84 y/o F with hx of HTN, HLD, COPD, dementia, recurrent UTIs, seizuers, hypothyroid BIBEMS for respiratory distress s/p intubation. Enroute was c/b tension pnx s/p needle decompression and cardiac arrest s/p ROSC following 2 rounds. Initial BP 100/73 and HR 120s and sats 70s T 105.7. Patient was in sinus tach. PE with fixed and unreactive pupils, unresponsive, BL breath sounds on vent. -active cooling -sepsis order set, acs r/o, CVA r/o -propofol ordered for sedation -campoverde inserted -IVF 08/06/19 21:13 Bedside US with concer for pnx on right given absence of lung sliding CT head, chest, abd/pel for eval of bleed vs pnx vs other path 08/06/19 21:16 discussion with family performed at this point regarding poor prognosis and continued measures; family initially with wishes for full code and to continue all measure; ICU notified 08/06/19 21:17 lab results with Hb 5.3; plt 45; K 1.7; UA with concern for uti -> concern for DIC cooling halted at this time given coagulation and concern for poorer prognosis; T 102.6 08/06/19 21:20 family updated and all siblings present at this time; they opted for DNR/DNI and discontinuation of all care given results and nonresponsive with no pupillary reflex pressors weaned, vent weaned, comfort morphine given 08/06/19 21:20 patient intially maintained sats and was in sinus tachy at 2114, patient was anounced all arrangements being made and to be continued by night team PCP notified <Neva Wyatt - Last Filed: 08/06/19 20:58> - Critical Care Time Total Critical Care Time (minutes): 90 (shock, acute respiratory failure, septic shock) Critical Care Statement: The care of this patient involved high complexity decision making to prevent further life threatening deterioration of the patient 's condition and/or to evaluate & treat vital organ system(s) failure or risk of failure. <Jade Gregorio - Last Filed: 08/07/19 12:19> Discharge - Discharge Information Problems reviewed: Yes <Neva Wyatt - Last Filed: 08/06/19 20:58> - Discharge Information Problems reviewed: Yes - Admission Yes <Jade Gregorio - Last Filed: 08/07/19 12:19> - Discharge Information Clinical Impression/Diagnosis: Septic shock, Cardiac arrest due to respiratory disorder Acute respiratory failure Qualifiers: Respiratory failure complication: hypoxia Qualified Code(s): J96.01 - Acute respiratory failure with hypoxia Pneumothorax Qualifiers: Pneumothorax type: unspecified pneumothorax Qualified Code(s): J93.9 - Pneumothorax, unspecified Condition: Disposition: - Follow up/Referral Referrals: Kady Ortiz MD [Primary Care Provider] -
[2019-08-06] MEDS ORDERED: ACETAMINOPHEN INJECTION 100 ML IVPB ONE (17:36)
[2019-08-06] MEDS ORDERED: ACETAMINOPHEN 1000 MG/100 ML VIAL (NON FORMULARY) IVPB ONE (17:37)
[2019-08-06] MEDS ORDERED: VANCOMYCIN 1,250 MG in DEXTROSE 5%-WATER - 250 ML IVPB ONE (17:38)
[2019-08-06] MEDS ORDERED: VANCOMYCIN 500 MG VIAL (RESTRICTED TO ID ONLY) ONE (17:38)
[2019-08-06] MEDS ORDERED: PIPERACILLIN/TAZOB 4.5 GM 4.5 GM in DEXTROSE 5%-WATER 100 ML IVPB ONE (17:38)
[2019-08-06] MEDS ORDERED: VANCOMYCIN 1 GRAM (PRE-DOCKED) 1,000 MG/250 ML BAG IVPB ONE (17:39)
[2019-08-06] MEDS ORDERED: PIPERACILLIN/TAZOB 4.5 GM 4.5 GM/100 ML BAG IVPB ONE (17:39)
[2019-08-06] MEDS ORDERED: PROPOFOL 1,000,000 MCG/100 ML VIAL IVPB SCH (17:45)
--- NOTE | 2019-08-06 17:45 | PDOC ---
Documentation entered by Faye Bond SCRIBE, acting as scribe for Jade Gregorio MD. Jade Gregorio MD: This documentation has been prepared by the Varun ravi Xhesika, SCRIBE, under my direction and personally reviewed by me in its entirety. I confirm that the documentation accurately reflects all work, treatment, procedures, and medical decision making performed by me. Attending Attestation - Resident Resident Name: Neva Wyatt - ED Attending Attestation I have performed the following: I have examined & evaluated the patient, The case was reviewed & discussed with the resident, I agree w/resident's findings & plan - HPI HPI: 08/06/19 16:53 This is an 84 year old female with a past medical history of major depressive disorder, paranoid schizophrenia, dementia unspecified, HTN, COPD hypothyroid, constipation, recurrent urinary tract infections, PNA, from [facility] who presents to the emergency department for suspected sepsis and respiratory distress. Per EMS pt was initially sinan, began to sinan down and recieved atropine x1 dose. Per EMS patient was bagged, started agonal breathing and then was intubated with 1.0 cm tube with 24 at the lip. EMS notes patient was asystole, coded en route to the ED and received 1 calcium, 1 bicarb, 1 epinephrine and 5 rounds of CPR. Patient was then vfib, shocked once and then went into sinus tach. EMS notes patient had a deviated trach and needle compressions were started with gush air. Allergies: NKDA - Physicial Exam PE: 08/06/19 18:47 Physical exam General: obtunded. unresponsive, intubated. HEENT: intubated, pupils minimally reactive, dilated Neck: neck supple Resp: intubated, b/l breath sounds. +right upper chest needle in place s/p decompression. CVS: tachy Abdomen: distended MSK: no spontaneous movement Neuro: obtunded, no responsiveness Skin: pale appearing, cool extrem 08/06/19 19:01 08/07/19 12:20 - Critical Care Time Total Critical Care Time: 90 (acute respiratory failure, shock, septic shock) Critical Care Statement: The care of this patient involved high complexity decision making to prevent further life threatening deterioration of the patient 's condition and/or to evaluate & treat vital organ system(s) failure or risk of failure. - Medical Decision Making 08/06/19 18:44 Vital Signs Temp Pulse Resp BP Pulse Ox 105.7 F H 130 H 16 72/52 L 96 08/06/19 17:35 08/06/19 17:57 08/06/19 17:57 08/06/19 17:57 08/06/19 17:57 Patient presents to the ED in acute respiratory failure status post intubation in the field. post needle decompression for tension ptx in the field. tube confirmed in place on cxr and direct visualization and the end tidal co2 > 25 Post ROSC Temp 105, septic shock likely UTI vs pna labs remarkable for thrombocytopenia, anemia, coagulopathic/DIC? acidotic. sepsis vs hypoperfusion not candidate for post arrest cooling due to acidosis/coagulapathy IV abx vancomycin/zosyn for empiric coverage tylenol and cooling to the axilla campoverde placed. norepi gtt for refractory shock despite IVF, peripheral then central access ( will do the femoral line, see resident procedure note, as most compressible in the setting of coagulopathy) pt's family, daughter POA and discussed care collectively made aware of poor prognosis and gravity of situation with multiorgan failure, shock and respiratory failure 2/2 infection vs ptx and severity of presentation. Full Code status, c/w resuscitation, mech ventilation, abx, central line CT head and CT chest to eval for ptx my bedside pocus with right lung point c/w right ptx, in contrast to the CXR reading EMS placed needle for decompression of tension, remains in place, chest tube once confirmation pending CT chest to eval the extent of ptx icu called for higher level of care and came to bedside to assess. s/o overnight team pending imaging, workup and ICU 08/06/19 22:05 Heart Score/ECG Review #1 ECG reviewed & interpreted by me at: 17:25 General ECG Interpretation: Sinus Rhythm, Normal Intervals 08/06/19 17:45 Sinus tachycardia 142 bpm, narrow QRS, nonspecific T wave abnormalities likely rate related, limited by artifact. 08/06/19 17:56
[2019-08-06] MEDS ORDERED: NOREPINEPHRINE BITARTRATE 8,000 MCG in DEXTROSE 5%-WATER - 492 ML IV SCH (18:00)
[2019-08-06 18:16] LABS: EPI CELLS 0 /HPF (0-5/HPF); HYALINE CASTS 0 /lpf (0-8); PH,URINE 6.5 (5.0-8.0); URINE APPEARANCE TURBID; URINE BACTERIA >9000 /hpf (NEGATIVE); URINE BILIRUBIN NEGATIVE (NEGATIVE); URINE COLOR YELLOW; URINE GLUCOSE (UA) TRACE (NEGATIVE); URINE KETONE NEGATIVE (NEGATIVE); URINE LEUK ESTERASE 1+ (NEGATIVE); URINE NITRITE NEGATIVE (NEGATIVE); URINE PROTEIN 3+ (NEGATIVE); URINE UROBILINOGEN 0.2 mg/dL (0.2-1.0); URINE WBC 422 /hpf (0-5)
[2019-08-06 18:37] LABS: BASO % 0.2 % (0-2.0); EOS % 0.1 % (0-4.5); HEMATOCRIT 18.1 % (32.4-45.2); LYMPH % 44.1 % (8-40); MCH 31.9 pg (25.7-33.7); MCHC 31.8 g/dl (32.0-36.0); MEAN CELL VOLUME 100.6 fl (80-96); MEAN PLT VOLUME 7.8 fl (7.5-11.1); MONO % 1.7 % (3.8-10.2); NEUT % 53.9 % (42.8-82.8); PLATELET COUNT 45 K/MM3 (134-434); RDW 15.7 % (11.6-15.6); WHITE BLOOD COUNT 3.4 K/mm3 (4.0-10.0)
[2019-08-06 18:42] LABS: VENOUS PC02 39.3 mmHg (38-52)
[2019-08-06 18:46] LABS: VENOUS PO2 < 49 mmHg (28-48)
[2019-08-06 18:53] LABS: HEMOGLOBIN 5.7 GM/dL (10.7-15.3)
[2019-08-06 18:54] LABS: INR 1.57 (0.83-1.09); PROTHROMBIN TIME (PATIENT) 18.6 SEC (9.7-13.0); VENOUS PH 7.13 (7.31-7.41)
[2019-08-06 18:57] LABS: ACTIVATED PTT 48.2 SECONDS (25.2-36.5)
[2019-08-06 19:12] VITALS: TEMP 102.6
[2019-08-06 19:26] LABS: ALBUMIN 0.9 g/dl (3.4-5.0); ALK PHOS 51 U/L (45-117); ANION GAP 6 MMOL/L (8-16); BILIRUBIN,TOTAL 0.1 mg/dL (0.2-1); BLOOD UREA NITROGEN 14.7 mg/dL (7-18); CHLORIDE 133 mmol/L (98-107); CO2 19 mmol/L (21-32); CREATININE 0.7 mg/dL (0.55-1.3); GLUCOSE,RANDOM 244 mg/dL (74-106); SGOT/AST 12 U/L (15-37); SGPT/ALT 9 U/L (13-61); SODIUM 159 mmol/L (136-145); TOT PROT 2.3 g/dl (6.4-8.2)
--- NOTE | 2019-08-06 19:27 | PDOC ---
*Physical Exam - Vital Signs Last Vital Signs Temp Pulse Resp BP Pulse Ox 102.6 F H 118 H 18 72/56 L 100 08/06/19 19:11 08/06/19 19:12 08/06/19 19:11 08/06/19 19:12 08/06/19 19:11 ED Treatment Course - LABORATORY CBC & Chemistry Diagram: 08/06/19 16:39 08/06/19 16:39 - ADDITIONAL ORDERS Additional order review: Laboratory Results 08/06/19 08/06/19 08/06/19 16:50 16:39 16:39 PT with INR 18.60 H INR 1.57 H PTT (Actin FS) 48.2 H VBG pH 7.13 L* POC VBG pCO2 39.3 POC VBG pO2 < 49 H VBG HCO3 12.5 L VBG O2 Sat (Katie) 64.9 L VBG Base Excess -14.9 L Urine Color Yellow Urine Appearance Turbid Urine pH 6.5 D Ur Specific Jolley 1.020 Urine Protein 3+ H Urine Glucose (UA) Trace Urine Ketones Negative Urine Blood 2+ H Urine Nitrite Negative Urine Bilirubin Negative Urine Urobilinogen 0.2 Ur Leukocyte Esterase 1+ H Urine WBC (Auto) 422 Urine Casts (Auto) 0 U Epithel Cells (Auto) 0 Urine Bacteria (Auto) >9000 08/06/19 16:39 RBC 1.80 L MCV 100.6 H MCHC 31.8 L RDW 15.7 H MPV 7.8 Neutrophils % 53.9 D Lymphocytes % 44.1 H D Monocytes % 1.7 L Eosinophils % 0.1 D Basophils % 0.2 - Medications Given in the ED: ED Medications Discontinued Medications Generic Name Dose Route Start Last Admin Trade Name Tereso PRN Reason Stop Dose Admin Acetaminophen 1,000 mg 08/06/19 17:37 08/06/19 17:35 Ofirmev Injection - IVPB 08/06/19 17:38 1,000 mg ONCE ONE Administration Piperacillin Sod/Tazobactam 100 mls @ 200 mls/hr 08/06/19 17:38 08/06/19 17: 45 Sod 4.5 gm/ Dextrose IVPB 08/06/19 18:07 200 mls/hr ONCE ONE Administration Protocol Medical Decision Making - Medical Decision Making 08/06/19 19:21 Sign out received from Karen Gregorio and Edmundo Valverde is an 84yo woman with a PMH of HTN, COPD, hypothyroid, recurrent UTI, MDD, paranoid schizophrenia, dementia who presented from [facility] with suspected sepsis, respiratory distress, then followed by cardiac arrest ( asystole per EMS). Pt received atropine initially for bradycardia, then 1x calcium, 1x bicarb, 1x epi, 5 rounds of CPR during the arrest including one shock. She also had needle decompression for suspected tension pneumo with a gush of air prior to arrival. She was intubated in the field ED course so far notable for: - ROSC achieved - Noted to be febrile to 105F - Sepsis labs sent - Acetaminophen for fever - Persistent hypotension in low 70/50's with MAPs in the mid 60's - CT chest/abd/pelvis ordered, currently underway Discharge - Discharge Information Clinical Impression/Diagnosis: Septic shock, Cardiac arrest due to respiratory disorder, Acute respiratory failure Condition: Critical - Follow up/Referral - Patient Discharge Instructions - Post Discharge Activity
[2019-08-06 19:30] LABS: CALCIUM 6.6 mg/dL (8.5-10.1); POTASSIUM 1.9 mmol/L (3.5-5.1)
[2019-08-06 19:34] LABS: URINE RBC 49.3 /hpf (0-4); YEAST NONE SEEN (NEGATIVE)
[2019-08-06] MEDS ORDERED: POTASSIUM CHLORIDE 20 MEQ PREMIX IVPB 100 ML IVPB SCH (19:45)
[2019-08-06] MEDS ORDERED: KCL 10 MEQ IVPB 20 MEQ/200 ML INFUS.BAG IVPB ONE (19:58)
[2019-08-06] MEDS ORDERED: KCL 10 MEQ IVPB 10 MEQ/100 ML INFUS.BAG IVPB SCH (20:00)
[2019-08-06] MEDS ORDERED: morphine SULFATE 4 MG/ML VIAL ONE (20:45)
[2019-08-06] MEDS ORDERED: MORPHINE SULFATE 2 MG/ML VIAL ONE (20:45)
[2019-08-06] MEDS ORDERED: morphine CARPU-JECT 4 MG/1 ML DISP.SYRIN IVPUSH ONE (21:10)
[2019-08-06 21:52] VITALS: BP 100/68; PULSE 120
--- NOTE | 2019-08-07 10:04 | EKG ---
Test Reason : Blood Pressure : / mmHG Vent. Rate : 142 BPM Atrial Rate : 142 BPM P-R Int : 150 ms QRS Dur : 064 ms QT Int : 266 ms P-R-T Axes : 052 046 257 degrees QTc Int : 409 ms SINUS TACHYCARDIA WITH FREQUENT and consecutive PREMATURE VENTRICULAR COMPLEXES POSTERIOR INFARCT , AGE UNDETERMINED MARKED ST ABNORMALITY, POSSIBLE INFERIOR SUBENDOCARDIAL INJURY Lateral st depressions Lateral wall injury TDS motion artifacts ABNORMAL ECG Confirmed by NATALIA BURGESS MD ([id number]) on 08/07/2019 10:04:16 AM Referred By: Confirmed By:NATALIA BURGESS MD
== END 2019-08-06 21:59 | disposition expired ==
LOC: JER 16:35
PROC: BB4BZZZ Ultrasonography of Pleura (ICD-10-PCS; principal; 2019-08-06)
PROC: 0T9B70Z Drainage of Bladder with Drainage Device, Via Natural or Artificial Opening (ICD-10-PCS; 2019-08-06)
PROC: 06HY33Z Insertion of Infusion Device into Lower Vein, Percutaneous Approach (ICD-10-PCS; 2019-08-06)
PROC: 3E03329 Introduction of Other Anti-infective into Peripheral Vein, Percutaneous Approach (ICD-10-PCS; 2019-08-06)
PROC: 3E033NZ Introduction of Analgesics, Hypnotics, Sedatives into Peripheral Vein, Percutaneous Approach (ICD-10-PCS; 2019-08-06)
PROC: 3E033NZ Introduction of Analgesics, Hypnotics, Sedatives into Peripheral Vein, Percutaneous Approach (ICD-10-PCS; 2019-08-06)
DX: I46.9 Cardiac arrest, cause unspecified (principal); J96.00 Acute respiratory failure, unspecified whether with hypoxia or hypercapnia; A41.9 Sepsis, unspecified organism; I10 Essential (primary) hypertension; E78.5 Hyperlipidemia, unspecified; J44.9 Chronic obstructive pulmonary disease, unspecified; G40.909 Epilepsy, unspecified, not intractable, without status epilepticus; E03.9 Hypothyroidism, unspecified; F03.90 Unspecified dementia, unspecified severity, without behavioral disturbance, psychotic disturbance, mood disturbance, and anxiety; F41.9 Anxiety disorder, unspecified; F32.9 Major depressive disorder, single episode, unspecified; F20.0 Paranoid schizophrenia
CPT/HCPCS: 36415; 36556; 51702; 70450-TC; 71045-TC-FY; 71250-TC; 74176-TC; 76604; 80053; 81003; 82550; 82553; 82803; 83605; 84484; 85025; 85610; 85730; 86850; 86900; 86901; 86922; 87040; 87086; 87186; 93005; 93010; 93308; 96365; 96368; 96374; 96375; 99285-25; J0131